=== PATIENT | male | born 1965 | race Caucasian/White ===

== ENCOUNTER 2020-09-24 08:20 | Outpatient (REF) | payer OTHER, SELFPAY ==
[2020-09-24 09:42] LABS: MANUAL DIFF FLAG NO
[2020-09-24 09:45] LABS: Basophils Absolute Auto 0.1 X10*3/uL (0.0-0.2); Basophils Percent Auto 0.8 % (0-2); Eosinophils Absolute Auto 0.2 X10*3/uL (0.0-0.4); Eosinophils Percent Auto 1.9 % (0-4); Hematocrit 43.8 % (42-52); Hemoglobin 14.5 g/dl (14.0-18.0); Imm Gran Abs Auto 0.03 X10*3/uL (0.00-0.03); Imm Gran Pct Auto 0.3 % (0.0-0.4); Lymphocytes Absolute Auto 2.8 X10*3/uL (1.2-4.9); Lymphocytes Percent Auto 27.9 % (20-40); Mean Corpuscular HGB Conc 33.1 g/dl (31.0-36.0); Mean Corpuscular Hemoglobin 29.5 pg (27.0-33.0); Mean Corpuscular Volume 89.2 fL (80-98); Monocytes Absolute Auto 0.7 X10*3/uL (0.1-1.2); Monocytes Percent Auto 7.1 % (2-11); Neutrophils Absolute Auto 6.2 X10*3/uL (2.0-8.3); Platelet Count 250 X10*3/uL (160-400); Red Blood Count 4.91 X10*6/uL (4.60-5.80); Red Cell Distribution Width 12.3 % (11.0-16.0); White Blood Count 10.1 X10*3/uL (4.8-10.8)
[2020-09-24 10:22] LABS: Creatinine Urine 95.65 mg/dL; Microalbumin Urine < 5.0 mg/L
[2020-09-24 10:25] LABS: Alanine Aminotransferase 22 U/L (0-40); Albumin Level 4.4 g/dL (3.5-5.0); Alkaline Phosphatase 54 U/L (39-117); Anion Gap 12 (12-20); Aspartate Amino Transferase 16 U/L (5-37); Bilirubin Total 0.3 mg/dL (0.0-1.0); Blood Urea Nitrogen 13 mg/dL (9-16); Calcium 9.2 mg/dL (8.4-10.2); Carbon Dioxide 30 mmol/L (22-29); Chloride 99 mmol/L (96-108); Cholesterol 142 mg/dL; Estimated Glomerular Filt Rate > 60; Glucose Fasting 68 mg/dL (60-99); HDL Cholesterol 35 mg/dL; LDL Cholesterol Calculated 79 mg/dl; Potassium 5.3 mmol/l (3.3-5.1); Sodium 136 mmol/L (135-145); Total Protein 6.9 g/dL (6.5-8.0); Triglycerides 142 mg/dL
[2020-09-24 10:26] LABS: Estimated Average Glucose 148 mg/dL; Hemoglobin A1c % 6.8 %
[2020-09-24 10:48] LABS: T4 Thyroxine 7.6 ug/dL (4.5-12.0); Thyroid Stimulating Hormone 1.09 uIU/mL (0.32-4.0)
[2020-09-24 12:01] LABS: Folate 11.4 ng/mL (> or = 4.0); Vitamin B12 626 pg/mL (200-900)
== END 2020-09-24 08:21 | disposition home or self-care (01) ==
LOC: HO.LAB 08:20
PROVIDERS: PCP Internal Medicine; Visit Provider Internal Medicine
DX: E10.9 Type 1 diabetes mellitus without complications (principal); I10 Essential (primary) hypertension; E78.00 Pure hypercholesterolemia, unspecified; F41.9 Anxiety disorder, unspecified; Z72.0 Tobacco use; Z98.890 Other specified postprocedural states
CPT/HCPCS: 36415; 80053; 80061; 82043; 82607; 82746; 83036; 84436; 84443; 85025

== ENCOUNTER 2021-07-08 06:47 | Outpatient (REF) | payer OTHER, SELFPAY ==
[2021-07-08 07:16] LABS: MANUAL DIFF FLAG NO
[2021-07-08 07:25] LABS: Basophils Absolute Auto 0.1 X10*3/uL (0.0-0.2); Basophils Percent Auto 0.7 % (0-2); Eosinophils Absolute Auto 0.2 X10*3/uL (0.0-0.4); Eosinophils Percent Auto 2.1 % (0-4); Hematocrit 40.7 % (42-52); Hemoglobin 13.8 g/dl (14.0-18.0); Imm Gran Abs Auto 0.02 X10*3/uL (0.00-0.03); Imm Gran Pct Auto 0.2 % (0.0-0.4); Lymphocytes Absolute Auto 2.9 X10*3/uL (1.2-4.9); Lymphocytes Percent Auto 31.6 % (20-40); Mean Corpuscular HGB Conc 33.9 g/dl (31.0-36.0); Mean Corpuscular Hemoglobin 29.8 pg (27.0-33.0); Mean Corpuscular Volume 87.9 fL (80-98); Mean Platelet Volume 11.2 fL (9.4-12.4); Monocytes Absolute Auto 0.8 X10*3/uL (0.1-1.2); Monocytes Percent Auto 8.8 % (2-11); Neutrophils Absolute Auto 5.1 X10*3/uL (2.0-8.3); Neutrophils Percent Auto 56.6 % (45-73); Platelet Count 212 X10*3/uL (160-400); Red Blood Count 4.63 X10*6/uL (4.60-5.80); Red Cell Distribution Width 12.9 % (11.0-16.0)
[2021-07-08 07:37] LABS: Estimated Average Glucose 169 mg/dL; Hemoglobin A1c % 7.5 %
[2021-07-08 07:53] LABS: Alanine Aminotransferase 22 U/L (0-40); Albumin Level 4.2 g/dL (3.5-5.0); Alkaline Phosphatase 50 U/L (39-117); Anion Gap 11 (12-20); Aspartate Amino Transferase 15 U/L (5-37); Bilirubin Total 0.2 mg/dL (0.0-1.0); Blood Urea Nitrogen 12 mg/dL (9-16); Carbon Dioxide 28 mmol/L (22-29); Chloride 103 mmol/L (96-108); Cholesterol 114 mg/dL; Estimated Glomerular Filt Rate > 60; Glucose Random 132 mg/dL (60-115); HDL Cholesterol 30 mg/dL; LDL Cholesterol Calculated 61 mg/dl; Potassium 4.9 mmol/L (3.3-5.1); Sodium 137 mmol/L (135-145); Total Protein 6.4 g/dL (6.5-8.0); Triglycerides 115 mg/dL
[2021-07-08 08:06] LABS: Free T4 (Free Thyroxine) 1.04 ng/dL (0.71-1.85); Thyroid Stimulating Hormone 1.47 uIU/mL (0.32-4.0)
[2021-07-08 08:27] LABS: Folate 11.1 ng/mL (> or = 4.0); Vitamin B12 612 pg/mL (200-900)
[2021-07-08 09:53] LABS: Creatinine Urine 93.91 mg/dL; Microalbum/Creatinine Ratio Ur 5.3 ug/mg cr
== END 2021-07-08 06:48 | disposition home or self-care (01) ==
LOC: HO.LAB 06:47
PROVIDERS: PCP Internal Medicine; Visit Provider Internal Medicine
DX: E78.00 Pure hypercholesterolemia, unspecified (principal); E11.65 Type 2 diabetes mellitus with hyperglycemia; I10 Essential (primary) hypertension
CPT/HCPCS: 36415; 80053; 80061; 82043; 82607; 82746; 83036; 84439; 84443; 85025

== ENCOUNTER 2022-01-07 07:29 | Outpatient (REF) | payer OTHER, SELFPAY ==
--- NOTE | ~2022-01-07 | US_ITS ---
EXAMINATION: US ABDOMEN COMPLETE CLINICAL INFORMATION: Abnormal LFTs. COMPARISON: Ultrasound abdomen complete 09/29/2018. TECHNIQUE: Real-time imaging of the abdominal viscera. FINDINGS: PANCREAS: Normal. ABDOMINAL AORTA: The proximal, mid, and distal segments are normal in caliber. INFERIOR VENA CAVA: Visualized portions are normal. LIVER: The liver is normal in size. The liver contour is normal. There is mild increase in liver echogenicity. No focal hepatic lesion. There is no intrahepatic biliary duct dilatation seen. GALLBLADDER: Normal. The gallbladder is physiologically distended without evidence of stones, sludge, polyps, wall thickening or pericholecystic fluid. COMMON BILE DUCT: Normal in caliber measuring 0.4 cm in diameter. RIGHT KIDNEY: Normal. No hydronephrosis. No renal calculi or focal parenchymal lesions. The kidney measures 11.6 cm in maximum dimension. LEFT KIDNEY: Normal. No hydronephrosis. No renal calculi or focal parenchymal lesions. The kidney measures 10.9 cm in maximum dimension. SPLEEN: Normal. The spleen measures 10.5 cm in maximum dimension. FREE FLUID: None. US/US abdomen complete IMPRESSION: Mild hepatic steatosis. No focal lesion seen. The rest of the abdominal ultrasound is unremarkable.
== END 2022-01-07 07:30 | disposition home or self-care (01) ==
LOC: HO.US 07:29
PROVIDERS: PCP Internal Medicine; Visit Provider Internal Medicine
DX: R30.0 Dysuria (principal); R79.89 Other specified abnormal findings of blood chemistry
CPT/HCPCS: 76700

== ENCOUNTER 2022-07-04 13:13 | Outpatient (REF) | payer OTHER, SELFPAY ==
--- NOTE | ~2022-07-04 | US_ITS ---
EXAMINATION: US RETROPERITONEAL LIMITED (RENAL ONLY) CLINICAL INFORMATION: Low back pain, unspecified. COMPARISON: Ultrasound abdomen complete 01/07/2022 and 09/29/2018. TECHNIQUE: Real-time imaging of the kidneys. FINDINGS: RIGHT KIDNEY: 10.9 x 5.3 x 5.3 cm (SAG x AP x TRV). The kidney is normal in size, contour, and echogenicity. Renal cortical thickness is normal. There is a small 2 mm echogenic focus with twinkle artifact in the upper pole questionable for a small stone. No focal parenchymal lesions. No hydronephrosis. LEFT KIDNEY: 10.9 x 5.9 x 5.0 cm (SAG x AP x TRV). The kidney is normal in size, contour, and echogenicity. Renal cortical thickness is normal. No calculi or focal parenchymal lesions. No hydronephrosis. US/US renal BI IMPRESSION: Question small right renal stone. Normal left kidney.
[2022-07-04 13:54] LABS: MANUAL DIFF FLAG NO
[2022-07-04 14:03] LABS: Basophils Absolute Auto 0.1 X10*3/uL (0.0-0.2); Basophils Percent Auto 0.7 % (0-2); Eosinophils Absolute Auto 0.1 X10*3/uL (0.0-0.4); Eosinophils Percent Auto 1.4 % (0-4); Hematocrit 39.9 % (42.0-52.0); Hemoglobin 13.6 g/dl (14.0-18.0); Imm Gran Abs Auto 0.03 X10*3/uL (0.00-0.03); Imm Gran Pct Auto 0.4 % (0.0-0.4); Lymphocytes Percent Auto 24.9 % (20-40); Mean Corpuscular HGB Conc 34.1 g/dl (31.0-36.0); Mean Corpuscular Hemoglobin 29.1 pg (27.0-33.0); Mean Corpuscular Volume 85.4 fL (80.0-98.0); Mean Platelet Volume 11.1 fL (9.4-12.4); Monocytes Absolute Auto 0.7 X10*3/uL (0.1-1.2); Monocytes Percent Auto 8.1 % (2-11); Neutrophils Absolute Auto 5.2 x10*3/uL (2.0-8.3); Neutrophils Percent Auto 64.5 % (45-73); Platelet Count 234 X10*3/uL (160-400); Red Blood Count 4.67 X10*6/uL (4.60-5.80); Red Cell Distribution Width 13.4 % (11.0-16.0); White Blood Count 8.1 X10*3/uL (4.8-10.8)
[2022-07-04 14:22] LABS: Creatinine Urine 26.05 mg/dL
[2022-07-04 14:25] LABS: Creatinine Urine 26.41 mg/dL; Microalbumin Urine < 5.0 mg/L
[2022-07-04 14:28] LABS: Alanine Aminotransferase 22 U/L (0-40); Albumin Level 4.4 g/dL (3.5-5.0); Alkaline Phosphatase 54 U/L (39-117); Anion Gap 15 (12-20); Aspartate Amino Transferase 17 U/L (5-37); Bilirubin Total 0.3 mg/dL (0.0-1.0); Blood Urea Nitrogen 8 mg/dL (9-16); Calcium 9.6 mg/dL (8.4-10.2); Carbon Dioxide 28 mmol/L (22-29); Chloride 98 mmol/L (96-108); Cholesterol 121 mg/dL; Estimated Glomerular Filt Rate > 60; Glucose Random 211 mg/dL (60-115); HDL Cholesterol 38 mg/dL; Iron 59 mcg/dL (45-160); LDL Cholesterol Calculated 62 mg/dl; Percent Iron Saturation 15 % (15-50); Potassium 4.9 mmol/L (3.3-5.1); Sodium 136 mmol/L (135-145); Total Iron Binding Capacity 395 mcg/dL (228-428); Total Protein 6.8 g/dL (6.5-8.0); Triglycerides 106 mg/dL; Unsaturated Iron Binding 336 ug/dL
[2022-07-04 14:50] LABS: Ferritin 45 ng/mL (20-250); Free T4 (Free Thyroxine) 1.02 ng/dL (0.71-1.85); Thyroid Stimulating Hormone 1.07 uIU/mL (0.32-4.0)
[2022-07-04 15:01] LABS: Folate 12.2 ng/mL (> or = 4.0); Vitamin B12 554 pg/mL (200-900)
== END 2022-07-04 13:14 | disposition home or self-care (01) ==
LOC: HO.HMGCX 13:13
PROVIDERS: PCP Internal Medicine; Visit Provider Internal Medicine
DX: Z12.5 Encounter for screening for malignant neoplasm of prostate (principal); M54.50 Low back pain, unspecified; E78.00 Pure hypercholesterolemia, unspecified; E11.65 Type 2 diabetes mellitus with hyperglycemia; D64.9 Anemia, unspecified
CPT/HCPCS: 36415; 76775; 80053; 80061; 82043; 82607; 82728; 82746; 83540; 84153; 84439; 84443; 85025

== ENCOUNTER 2022-10-10 10:54 | Outpatient (REF) | payer OTHER, SELFPAY | END 2022-10-10 10:55 | disposition home or self-care (01) | LOC: HO.MRI 10:54 | PROVIDERS: Visit Provider Internal Medicine | DX: Z13.89 Encounter for screening for other disorder (principal) ==

== ENCOUNTER 2022-12-02 12:26 | Outpatient (REF) | payer OTHER, SELFPAY ==
[2022-12-05 22:14] LABS: Glutamic acid decarboxylase Ab <5 IU/mL (<5)
== END 2022-12-02 12:27 | disposition home or self-care (01) ==
LOC: HO.LAB 12:26
PROVIDERS: PCP Internal Medicine; Visit Provider Internal Medicine Endocrinology, Diabetes & Metabolism
DX: E10.65 Type 1 diabetes mellitus with hyperglycemia (principal); E78.5 Hyperlipidemia, unspecified; Z79.899 Other long term (current) drug therapy
CPT/HCPCS: 36415; 82947; 86341

== ENCOUNTER 2023-01-21 14:48 | Outpatient (REF) | payer OTHER, SELFPAY ==
--- NOTE | ~2023-01-21 | US_ITS ---
EXAMINATION: US SCROTUM CLINICAL INFORMATION: Scrotal pain. COMPARISON: None. TECHNIQUE: A sonogram of the scrotum was performed assessing cutler-scale appearance and color Doppler flow. Spectral Doppler analysis of the arterial and venous flow were performed in the testes bilaterally. FINDINGS: RIGHT: Right testicle measures 3.9 x 2.0 x 2.7 cm, volume 11.0 mL. No focal testicular parenchymal lesions are visualized. An appendix testis is noted. Spectral Doppler analysis of the arterial and venous flow is normal in the right testis. Right epididymal head is normal in size. No right varicocele is seen. A tiny right hydrocele is present. Right epididymal Doppler flow is normal. LEFT: Left testicle measures 3.7 x 2.2 x 2.7 cm, volume 11.5 mL. No focal testicular parenchymal lesions are visualized. Spectral Doppler analysis of the arterial and venous flow is normal in the left testis. Left epididymal head is normal in size. No left varicocele is seen. A tiny left hydrocele is present. Left epididymal Doppler flow is normal. US/US scrotum IMPRESSION: Essentially negative exam. Tiny bilateral hydroceles are present.
== END 2023-01-21 14:49 | disposition home or self-care (01) ==
LOC: HO.US 14:48
PROVIDERS: Visit Provider Internal Medicine
DX: N50.82 Scrotal pain (principal)
CPT/HCPCS: 76870

== ENCOUNTER → 2023-01-28 13:55 | Outpatient (BNVA) | payer OTHER, SELFPAY | PROVIDERS: PCP Internal Medicine; Visit Provider Nurse Practitioner Family | DX: Z13.89 Encounter for screening for other disorder (principal) ==

== ENCOUNTER → 2023-03-03 11:37 | Outpatient (BNVA) | payer OTHER, SELFPAY | PROVIDERS: PCP Internal Medicine; Visit Provider Internal Medicine Endocrinology, Diabetes & Metabolism | DX: E11.65 Type 2 diabetes mellitus with hyperglycemia (principal); Z79.4 Long term (current) use of insulin | CPT/HCPCS: 82947 ==

== ENCOUNTER 2023-05-08 15:15 | Outpatient (REF) | payer OTHER, SELFPAY ==
--- NOTE | ~2023-05-08 | CT_ITS ---
EXAMINATION: CT CHEST SCREENING CLINICAL INFORMATION: Nicotine dependence. Smoker. COMPARISON: None available. TECHNIQUE: Multidetector volumetric CT imaging of the chest is performed without contrast using low dose technique. Additional 2D coronal and sagittal reformatted images and axial 3D maximum intensity projection (MIP) images are generated on the CT workstation. This CT examination was performed using dose optimization techniques as appropriate, variously including the following: *Automated exposure control *Adjustment of mA and/or kV according to patient size (this includes techniques or standardized protocols for targeted exams where dose is matched to indication/reason for exam; i.e. extremities or head) *Use of iterative reconstruction technique DLP: 52 mGy-cm FINDINGS: LUNGS: The central airways are patent. There is no dense consolidation. No pneumothorax. Fissural lymph node along the right minor fissure is seen on series 5 image 233. Separate pulmonary nodules are noted. 1. Right lower lobe 0.5 cm subpleural solid nodule on series 5 image 299. 2. Pleural-based left lower lobe 0.8 x 0.4 cm nodule on series 5 image 332. MEDIASTINUM: Normal heart size. No pericardial effusion. No mediastinal lymphadenopathy. The thyroid gland is unremarkable. CORONARY ARTERY CALCIFICATION: None visualized on this study. PLEURA: There is no pleural effusion. No pleural mass or thickening. AXILLA: No lymphadenopathy. UPPER ABDOMEN: Unremarkable OSSEOUS STRUCTURES: Partially visualized cervical fusion hardware. Mild degenerative change in the spine. CT/CT lung screening IMPRESSION: Pulmonary nodules are present up to a mean diameter of 0.6 cm. ASSESSMENT: Lung-RADS category 3: Probably Benign RECOMMENDATION: Short interval 6 month follow up low dose CT chest.
== END 2023-05-08 15:16 | disposition home or self-care (01) ==
LOC: HO.CT 15:15
PROVIDERS: PCP Internal Medicine; Visit Provider Physician Assistant Medical
DX: Z12.2 Encounter for screening for malignant neoplasm of respiratory organs (principal); F17.210 Nicotine dependence, cigarettes, uncomplicated
CPT/HCPCS: 71271; G0296

== ENCOUNTER 2023-05-26 10:53 | Outpatient (AMB) | payer OTHER, SELFPAY ==
[2023-05-26 10:56] VITALS: BP 136/72; PULSE 90; O2SAT 95; BMI 26.1
--- NOTE | 2023-05-26 10:56 | A.OFFVIS_ITS ---
Intake Vital Signs 05/26/23 10:56 Height 5 ft 11 in Weight 186 lb 15.232 oz BMI 26.1 BP 136/72 Blood Pressure Location Lt brachial Position Sitting Pulse 90 Pulse Source Pulse Oximeter Pulse Oximetry (%) 95 Oxygen Delivery Method Room Air Intake Visit Reasons: f/u Type 2 DM Intake Note: Patient present today to follow up on Type 2 Diabetes Mellitus. Last Diabetic Eye exam: December 2022 Last Podiatry Visit: May 2023 Random Glucose: 162mg/dl HgA1C: 7.3% 03/30/2023 Allergies No Known Allergies [No Known Allergies*] Allergy (Verified 05/26/23 10:56) Medication List - Last Reconciled 05/26/23 by Giacomo Dallas MD blood-glucose sensor ([employer] Roberto 3 Sensor device) DIRECTED dulaglutide (Trulicity) 0.75 mg (0.5 mL) subcut QWEEK gabapentin 300 mg PO TID 90 days glucagon 3 mg/actuation (Baqsimi) 3 mg intranasal ONCE hydrochlorothiazide 25 mg PO QAM ibuprofen 800 mg PO Q8H insulin degludec (Tresiba FlexTouch U-100 insulin) 32 units (0.32 mL) subcut DAILY latanoprost 0.005% 1 drp ophthalmic (eye) BEDTIME lisinopril 40 mg PO DAILY metformin 1,000 mg (2 x 500 mg) PO BID pen needle, diabetic (Comfort EZ Pen [place]) As directed pen needle, diabetic (BD Rowena 2nd Gen Pen Needle) As directed once a day simvastatin 40 mg PO QPM 90 days travoprost 0.004% (Travatan Z) 1 drp ophthalmic (eye) QPM HPI HPI Comments History of Present Illness Details 57 YO M with is seen in consultation for T2DM at the request of PCP. Initially diagnosed with T2DM age 35. Was initially started on treatment with metformin . He was started on Trulicity in past Current regimen: Tresiba 25 units Metformin 1000 mg BID Trulicity 0.75 mg Qwkly Roberto 3 download shows he is using the sensor 96% of the time. Average glucose is 135 with G mi of 6.5% and variability 22.3%. 91% in target range with 9% hyperglycemia and no hypoglycemia Reports low sugars sx once a day- 3 or 4 X/ 2 wks Treats lows with eating something . Family history of Type 2 DM in father, brothers Has eyes checked yearly, last eye exam 2 mos ago , no retinopathy. Has neuropathy, Not sees podiatry. Denies nephropathy, on YENY/ARB. Has HLD, on statin. Denies history of CAD. Had diabetes education in past . Labs: [facility] Medical History Anxiety Generalized anxiety disorder Glaucoma Hepatitis B Hepatitis C antibody positive in blood Hypercholesterolemia Hypertension Nicotine dependence, cigarettes, uncomplicated Thoracic radiculopathy due to degenerative joint disease of spine Uncontrolled type 2 diabetes mellitus with hyperglycemia (~1999) Surgical History History of cervical spinal surgery History of fusion of cervical spine Family History Father Hypertension Mother Hypertension Maternal Uncle Pancreatic cancer Sister Substance abuse Brother Substance abuse Bladder cancer Social History Household Members: Spouse Household Members Other:: Housing: House Alcohol intake: never Patient Tobacco Use Status: Current everyday Tobacco user Tobacco use type: Cigarette Cigarette Packs Per Day: 1 Years Smoked: (onset 12yo, 1ppd x 45yrs, 40+PYH) e-Cigarette/Vaping Use: Never Used Second Hand Smoke Exposure: No service: No Current occupational status: unemployed Cognitive needs: No Hearing needs: No Vision needs: No Physical Exam Vital Signs: Last Vital Signs Pulse 90 05/26/23 10:56 BP 136/72 05/26/23 10:56 Pulse Ox 95 05/26/23 10:56 Oxygen Delivery Method Room Air 05/26/23 10:56 BMI result Body Mass Index 26.1 Absence of Cushingoid features. Absence of acromegalic features. Neck exam reveals nl size thyroid about 15 gms. No thyroid nodules palpable. No carotid bruits present. Lungs CTA. Heart S1 S2, Reg R/R. No M/R/ G. Skin exam reveals absence of vitiligo or acanthosis nigricans. Abdominal exam reveals Soft NT/ND with NA BS. No organomegaly present. Extrem Other: Visual exam of foot performed. No ulcerations or open lesions. No onchomycosis, no callouses.Pulses 2 + distally. Sensation intact to monofilament exam. Vibratory sensation sensed 10 seconds in right, 10 seconds in left with 128 Hz tuning fork Assessment & Plan Assessment & Plan (1) Uncontrolled type 2 diabetes mellitus with hyperglycemia: Onset Date: ~1999 Code(s): E11.65 - Type 2 diabetes mellitus with hyperglycemia Plan: This is a 57-year-old white male with a history of type 2 diabetes being treated metformin and basal insulin with excellent improved glycemic control and no known microvascular or macrovascular complications. Plan is continue the current regimen. At this point, patient returned to the care of his primary care provider and return back to endocrinology if it is HbA1c deteriorate Coding Level of Care Code Est Pt Level 4 (68306) Diagnoses Uncontrolled type 2 diabetes mellitus with hyperglycemia E11.65
[2023-05-26 11:08] LABS: Glucose, Whole Blood 162 mg/dL (60-115)
== END 2023-05-26 16:14 | disposition home or self-care (01) ==
PROVIDERS: PCP Internal Medicine; Referring Provider Internal Medicine; Visit Provider Internal Medicine Endocrinology, Diabetes & Metabolism
DX: E11.65 Type 2 diabetes mellitus with hyperglycemia (principal)
CPT/HCPCS: 99214

== ENCOUNTER → 2023-05-26 10:53 | Outpatient (BNVA) | payer OTHER, SELFPAY | PROVIDERS: Visit Provider Internal Medicine Endocrinology, Diabetes & Metabolism | DX: E11.65 Type 2 diabetes mellitus with hyperglycemia (principal); Z79.4 Long term (current) use of insulin; Z79.84 Long term (current) use of oral hypoglycemic drugs; Z79.899 Other long term (current) drug therapy | CPT/HCPCS: 82947 ==

== ENCOUNTER 2023-07-15 09:30 | Outpatient (AMB) | payer OTHER, SELFPAY ==
--- NOTE | 2023-07-15 09:37 | MHC.PC.OV ---
Vital Signs 07/15/23 09:43 07/15/23 10:22 Height 5 ft 11 in Weight 183 lb BMI 25.5 BP 108/64 115/80 Blood Pressure Location Lt brachial Lt brachial Position Sitting Sitting Pulse 80 Pulse Source Pulse Oximeter Pulse Oximetry (%) 98 Oxygen Delivery Method Room Air Intake Visit Reasons: Diabetes mellitus, smoker hypertension, Intake Note: Patient is here to follow up on DMII, and HTN. Pt requesting Trulicity refill. Embedded Developer Required: No Accompanied by: Self / Same As Patient Allergies No Known Allergies [No Known Allergies*] Allergy (Verified 07/15/23 09:45) Medication List - Last Reconciled 07/15/23 by Verenice Park MD blood-glucose sensor ([employer] Roberto 3 Sensor device) DIRECTED dulaglutide (Trulicity) 0.75 mg (0.5 mL) subcut QWEEK gabapentin 300 mg PO TID 90 days glucagon 3 mg/actuation (Baqsimi) 3 mg intranasal ONCE hydrochlorothiazide 25 mg PO QAM ibuprofen 800 mg PO Q8H insulin degludec (Tresiba FlexTouch U-100 insulin) 32 units (0.32 mL) subcut DAILY latanoprost 0.005% 1 drp ophthalmic (eye) BEDTIME lisinopril 40 mg PO DAILY metformin 1,000 mg (2 x 500 mg) PO BID pen needle, diabetic (Comfort EZ Pen [place]) As directed pen needle, diabetic (BD Rowena 2nd Gen Pen Needle) As directed once a day simvastatin 40 mg PO QPM 90 days travoprost 0.004% (Travatan Z) 1 drp ophthalmic (eye) QPM Tobacco use date assessed: 12/31/22 Dental Screening Dental Screen Date: 07/15/23 Did you have a dental visit in the last 12 months?: No Did you have a dental problem in the last 6 months where you did not have access to dental care?: No Was dental information given to patient?: Patient has dentist HPI Diabetes mellitus, smoker hypertension, HPI Details 57-year-old male smoker with uncontrolled diabetes mellitus generalized anxiety disorder hypercholesterolemia hypertension last seen in March 2023 blood work was requested and is here for follow-up. With the smoking thoracic surgery referral for lung cancer screening. Cologuard was done in 2019. Review of the notes has seen Endocrinology and has adjusted the medication. Patient also had a CT scan done showing pulmonary nodule that needs to be followed up short-term in 6 month- PAteint has seen POdiatry and will need surgery 11/2023 toe pinky encroaching on the 4th toe - 4 weeks of recuperation [facility] Medical History Anxiety Generalized anxiety disorder Glaucoma Hepatitis B Hepatitis C antibody positive in blood Hypercholesterolemia Hypertension Nicotine dependence, cigarettes, uncomplicated Thoracic radiculopathy due to degenerative joint disease of spine Uncontrolled type 2 diabetes mellitus with hyperglycemia (~2000) Surgical History History of cervical spinal surgery History of fusion of cervical spine Family History Father Hypertension Mother Hypertension Maternal Uncle Pancreatic cancer Sister Substance abuse Brother Substance abuse Bladder cancer Social History Household Members: Spouse Household Members Other:: Housing: House Alcohol intake: never Patient Tobacco Use Status: Current everyday Tobacco user Tobacco use type: Cigarette Cigarette Packs Per Day: 1 Years Smoked: (onset 12yo, 1ppd x 45yrs, 40+PYH) Packs Per Year: 0 e-Cigarette/Vaping Use: Never Used Second Hand Smoke Exposure: No service: No Current occupational status: unemployed Cognitive needs: No Hearing needs: No Vision needs: No Questionnaire Thrive Questionnaire Date Thrive assessed: 12/31/22 TARYN-7 AMB Questionnaire TARYN-7 Date TARYN - 7 assessed: 12/31/22 Source: Developed by Drs. Giacomo Lira, Kathleen Irizarry, Luis E Workman and colleagues, with an educational christin from [employer]. Physical exam (Primary Care) Vital Signs: Last Vital Signs Pulse 80 07/15/23 09:43 BP 108/64 07/15/23 09:43 Pulse Ox 98 07/15/23 09:43 Oxygen Delivery Method Room Air 07/15/23 09:43 BMI result Body Mass Index 25.5 Tobacco/Smoking Status: Tobacco use Status Tobacco use date assessed 12/31/22 07/15/23 09:45 Patient Tobacco Use Status Current everyday Tobacco 07/15/23 09:45 Tobacco use type Cigarette 07/15/23 09:45 e-Cigarette/Vaping Use Never Used 07/15/23 09:45 Thrive Assessment: Date of Thrive Assessment Date Thrive assessed 12/31/22 07/15/23 09:45 Const General: alert; No acute distress Eyes Conjunctivae: conjunctivae normal Resp Auscultation: clear to auscultation bilaterally Cardio Rate: regular rate Rhythm: regular rhythm GI Inspection: Yes normal to inspection Extrem General: Yes normal to inspection and No edema Results AMB Hemoglobin A1c AMB Hemoglobin A1c 6.6 % Last Edit by ALDAIR Armstrong on 07/15/23 09:46 Results Reviewed Results Reviewed: Laboratory Last Values Hgb A1c (Clinic) 6.6 % (4.0-6.0) H 07/15/23 09:34 Assessment and Plan Assessment & Plan (1) Colon cancer screening: Comment: (reports normal cologuard 3 years ago, he is concerned with doing the clear liquid diet prep for colonoscopy as he is diabetic. He will consider colonoscopt in Fall) Code(s): Z12.11 - Encounter for screening for malignant neoplasm of colon Plan: Patient was advised to get the Cologuard testing done (2) Type 2 diabetes mellitus with hyperglycemia: Comment: [place] eye exam Code(s): E11.65 - Type 2 diabetes mellitus with hyperglycemia Plan: Decrease the amount of carbohydrate intake, pasta, bread, rice and potatoes are all sugar and that is aside from all the sweet stuff, remember that fruits are good but they are Sweet also. Hemoglobin A1c goal of less than 6.5 present hemoglobin A1c 6.6 (3) Pulmonary nodule: Comment: 05/08/23 initial LDCT = Pleural-based LLL 0.8 x 0.4 cm nodule Code(s): R91.1 - Solitary pulmonary nodule Plan: Six-month follow-up from April 2023 (4) Hypertension: Code(s): I10 - Essential (primary) hypertension Qualifiers: Hypertension type: essential hypertension Qualified Code(s): I10 - Essential (primary) hypertension Plan: Continue with blood pressure medication. Decrease salt intake and exercise continue with lisinopril 40 mg once a day and hydrochlorothiazide 25 mg once a day (5) Hypercholesterolemia: Code(s): E78.00 - Pure hypercholesterolemia, unspecified Plan: Avoid fried foods, chicken skin, eggs, butter margarine, pastries and meat. Be it pork or beef they have a lot of cholesterol LDL goal of less than 100 and the last blood work was in 2021 (6) Nicotine dependence, cigarettes, uncomplicated: Comment: (current smoker - onset 12yo, 1ppd x 45yrs, 40+PYH) Code(s): F17.210 - Nicotine dependence, cigarettes, uncomplicated Plan: Patient is strongly advised to stop smoking Orders: Orders AMB Hemoglobin A1c Today E11.65 - Type 2 diabetes mellitus with hyperglycemia Coding Level of Care Code Est Pt Level 4 (87621) Diagnoses Colon cancer screening Z12.11 Type 2 diabetes mellitus with hyperglycemia E11.65 Pulmonary nodule R91.1 Hypertension I10 Hypertension type: essential hypertension Hypercholesterolemia E78.00 Nicotine dependence, cigarettes, uncomplicated F17.210
[2023-07-15 09:43] VITALS: BP 108/64; PULSE 80; O2SAT 98; BMI 25.5
[2023-07-15 10:22] VITALS: BP 115/80
== END 2023-07-15 11:20 | disposition home or self-care (01) ==
PROVIDERS: PCP Internal Medicine; Visit Provider Internal Medicine
DX: E11.65 Type 2 diabetes mellitus with hyperglycemia (principal); I10 Essential (primary) hypertension; F17.210 Nicotine dependence, cigarettes, uncomplicated; Z12.11 Encounter for screening for malignant neoplasm of colon; R91.1 Solitary pulmonary nodule; E78.00 Pure hypercholesterolemia, unspecified
CPT/HCPCS: 83036; 99214

== ENCOUNTER 2023-11-02 07:55 | Outpatient (REF) | payer OTHER, SELFPAY ==
[2023-11-02 08:12] LABS: MANUAL DIFF FLAG NO
[2023-11-02 09:35] LABS: Basophils Absolute Auto 0.1 X10*3/uL (0.0-0.2); Basophils Percent Auto 0.6 % (0-2); Eosinophils Absolute Auto 0.2 X10*3/uL (0.0-0.4); Eosinophils Percent Auto 1.8 % (0-4); Hematocrit 41.2 % (42.0-52.0); Hemoglobin 13.7 g/dl (14.0-18.0); Imm Gran Abs Auto 0.03 X10*3/uL (0.00-0.03); Imm Gran Pct Auto 0.3 % (0.0-0.4); Immature Retic Fraction 8.9 % (2.3-13.4); Lymphocytes Absolute Auto 3.1 X10*3/uL (1.2-4.9); Lymphocytes Percent Auto 32.1 % (20-40); Mean Corpuscular HGB Conc 33.3 g/dl (31.0-36.0); Mean Corpuscular Hemoglobin 29.3 pg (27.0-33.0); Mean Platelet Volume 11.1 fL (9.4-12.4); Monocytes Absolute Auto 0.7 X10*3/uL (0.1-1.2); Neutrophils Absolute Auto 5.5 x10*3/uL (2.0-8.3); Neutrophils Percent Auto 58.2 % (45-73); Platelet Count 214 X10*3/uL (160-400); Red Blood Count 4.68 X10*6/uL (4.60-5.80); Red Cell Distribution Width 12.4 % (11.0-16.0); Retic HGB Equivalent 34.6 pg (30.0-35.0); Reticulocytes Absolute 0.048 X10*6/uL (0.026-0.095); White Blood Count 9.5 X10*3/uL (4.8-10.8)
[2023-11-02 10:23] LABS: Alanine Aminotransferase 19 U/L (0-40); Albumin Level 4.4 g/dL (3.5-5.0); Alkaline Phosphatase 47 U/L (39-117); Anion Gap 14 (12-20); Aspartate Amino Transferase 13 U/L (5-37); Bilirubin Total 0.3 mg/dL (0.0-1.0); Blood Urea Nitrogen 13 mg/dL (9-16); Calcium 9.5 mg/dL (8.4-10.2); Carbon Dioxide 28 mmol/L (22-29); Chloride 101 mmol/L (96-108); Cholesterol 119 mg/dL (<200); Estimated Glomerular Filt Rate > 60; Glucose Random 127 mg/dL (60-115); HDL Cholesterol 36 mg/dL (>40); Iron 70 mcg/dL (45-160); LDL Cholesterol Calculated 58 mg/dL (<100); Percent Iron Saturation 22 % (15-50); Potassium 4.5 mmol/L (3.3-5.1); Sodium 138 mmol/L (135-145); Total Iron Binding Capacity 320 mcg/dL (228-428); Total Protein 7.2 g/dL (6.5-8.0); Triglycerides 127 mg/dL (<150); Unsaturated Iron Binding 250 ug/dL
[2023-11-02 10:29] LABS: Ferritin 58 ng/mL (20-250); Free T4 (Free Thyroxine) 0.94 ng/dL (0.71-1.85); Thyroid Stimulating Hormone 1.51 uIU/mL (0.32-4.0)
[2023-11-02 10:34] LABS: Creatinine Urine 202.47 mg/dL; Microalbum/Creatinine Ratio Ur 5.9 ug/mg cr (<30)
[2023-11-02 10:36] LABS: Folate 10.3 ng/mL (> or = 4.0); Prostate Specific Antigen Scr 1.72 ng/mL (<0.05-4.0); Vitamin B12 709 pg/mL (200-900)
== END 2023-11-02 07:56 | disposition home or self-care (01) ==
LOC: HO.LAB 07:55
PROVIDERS: PCP Internal Medicine; Visit Provider Internal Medicine
DX: Z12.5 Encounter for screening for malignant neoplasm of prostate (principal); E11.65 Type 2 diabetes mellitus with hyperglycemia; E78.00 Pure hypercholesterolemia, unspecified; D64.9 Anemia, unspecified
CPT/HCPCS: 36415; 80053; 80061; 82043; 82570; 82607; 82728; 82746; 83540; 84153; 84439; 84443; 85025; 85045

== ENCOUNTER 2023-11-05 13:25 | Outpatient (AMB) | payer OTHER, SELFPAY ==
[2023-11-05 13:26] VITALS: BP 146/70; PULSE 82; O2SAT 99; BMI 26.2
--- NOTE | 2023-11-05 13:26 | A.OFFPC_ITS ---
Vital Signs 11/05/23 13:26 Height 5 ft 11 in Weight 188 lb 0.6 oz BMI 26.2 BP 146/70 H Blood Pressure Location Lt brachial Position Sitting Pulse 82 Pulse Source Pulse Oximeter Pulse Oximetry (%) 99 Oxygen Delivery Method Room Air Intake Visit Reasons: 11/25/23 Hammer toe Right Fourth&Fifth Toe Intake Note: Patient is here for a Pre-op for Hammer Toe Right Fourth&Fifth toe scheduled with on 11/25/2023 Eligibility Specialist Required: No Allergies No Known Allergies [No Known Allergies*] Allergy (Verified 11/05/23 13:26) Medication List - Last Reconciled 11/05/23 by Verenice Park MD blood-glucose sensor (FreeStyle Roberto 3 Sensor device) DIRECTED dulaglutide 1.5 mg (0.5 mL) subcut QWEEK 30 days gabapentin 300 mg PO TID 90 days glucagon 3 mg/actuation (Baqsimi) 3 mg intranasal ONCE hydrochlorothiazide 25 mg PO QAM ibuprofen 800 mg PO Q8H insulin degludec (Tresiba FlexTouch U-100 insulin) 32 units (0.32 mL) subcut DAILY latanoprost 0.005% 1 drp ophthalmic (eye) BEDTIME lisinopril 30 mg PO DAILY 30 days metformin 1,000 mg (2 x 500 mg) PO BID pen needle, diabetic (Comfort EZ Pen [place]) As directed pen needle, diabetic (BD Rowena 2nd Gen Pen Needle) As directed once a day simvastatin 40 mg PO QPM 90 days travoprost 0.004% (Travatan Z) 1 drp ophthalmic (eye) QPM Tobacco use date assessed: 11/05/23 Dental Screening Dental Screen Date: 11/05/23 Did you have a dental visit in the last 12 months?: No Did you have a dental problem in the last 6 months where you did not have access to dental care?: No HPI 11/25/23 Hammer toe Right Fourth&Fifth Toe HPI Details 58-year-old overweight male smoker with diabetes mellitus hypertension hypercholesterol coming in for follow-up. Last seen in 07/15/2023. Cologuard negative November 2019 patient did get COVID shot and a flu shot. [facility] Medical History Anxiety Generalized anxiety disorder Glaucoma Hepatitis B Hepatitis C antibody positive in blood Hypercholesterolemia Hypertension Nicotine dependence, cigarettes, uncomplicated Thoracic radiculopathy due to degenerative joint disease of spine Uncontrolled type 2 diabetes mellitus with hyperglycemia (~2000) Surgical History History of cervical spinal surgery History of fusion of cervical spine Family History Father Hypertension Mother Hypertension Maternal Uncle Pancreatic cancer Sister Substance abuse Brother Substance abuse Bladder cancer Social History Household Members: Spouse Household Members Other:: Housing: House Alcohol intake: never Patient Tobacco Use Status: Current everyday Tobacco user Tobacco use type: Cigarette Cigarette Packs Per Day: 1 Years Smoked: (onset 12yo, 1ppd x 45yrs, 40+PYH) e-Cigarette/Vaping Use: Never Used Second Hand Smoke Exposure: No service: No Current occupational status: unemployed Cognitive needs: No Hearing needs: No Vision needs: No Questionnaire Thrive Questionnaire Date Thrive assessed: 12/31/22 AUDIT C Alcohol Use Questionnaire (AUDIT-C) 1. How often do you have a drink containing alcohol?: Never 3. How often do you have six or more drinks on one occasion?: Never Total Score: 0 TARYN-7 AMB Questionnaire TARYN-7 Date TARYN - 7 assessed: 12/31/22 Source: Developed by Drs. Giacomo Lira, Kathleen Irizarry, Luis E Workman and colleagues, with an educational christin from [employer]. Physical exam (Primary Care) Vital Signs: Last Vital Signs Pulse 82 11/05/23 13:26 BP 146/70 H 11/05/23 13:26 Pulse Ox 99 11/05/23 13:26 Oxygen Delivery Method Room Air 11/05/23 13:26 BMI result Body Mass Index 26.2 Tobacco/Smoking Status: Tobacco use Status Tobacco use date assessed 11/05/23 11/05/23 13:27 Patient Tobacco Use Status Current everyday Tobacco 11/05/23 13:27 Tobacco use type Cigarette 11/05/23 13:27 e-Cigarette/Vaping Use Never Used 11/05/23 13:27 Thrive Assessment: Date of Thrive Assessment Date Thrive assessed 12/31/22 11/05/23 13:27 Const General: alert; No acute distress Eyes Conjunctivae: conjunctivae normal Resp Auscultation: clear to auscultation bilaterally Cardio Rate: regular rate Rhythm: regular rhythm GI Inspection: Yes normal to inspection Extrem General: Yes normal to inspection and No edema Results AMB Hemoglobin A1c AMB Hemoglobin A1c 7.6 % Last Edit by NICOLE Pradhan on 11/05/23 13:40 Assessment and Plan Assessment & Plan (1) Type 2 diabetes mellitus with hyperglycemia: Comment: [place] [facility] exam Code(s): E11.65 - Type 2 diabetes mellitus with hyperglycemia Plan: Decrease the amount of carbohydrate intake, pasta, bread, rice and potatoes are all sugar and that is aside from all the sweet stuff, remember that fruits are good but they are Sweet also. Hemoglobin A1c goal of less than 6.5. Patient on Tresiba 32 units once a day Trulicity metformin. Advised to increase dose of Trulicity (2) Nicotine dependence, cigarettes, uncomplicated: Comment: (current smoker - onset 12yo, 1ppd x 45yrs, 40+PYH) Code(s): F17.210 - Nicotine dependence, cigarettes, uncomplicated Plan: Patient is strongly advised to stop smoking! Patient is not ready to stop (3) Colon cancer screening: Comment: (reports normal cologuard 3 years ago, he is concerned with doing the clear liquid diet prep for colonoscopy as he is diabetic. He will consider colonoscopt in Fall) Code(s): Z12.11 - Encounter for screening for malignant neoplasm of colon Plan: Discussed about Cologuard every 3 years, Cologuard sent (4) Hypertension: Code(s): I10 - Essential (primary) hypertension Qualifiers: Hypertension type: essential hypertension Qualified Code(s): I10 - Essential (primary) hypertension Plan: Continue with blood pressure medication. Decrease salt intake and exercise patient takes lisinopril 40 mg once a day hydrochlorothiazide 25 mg once a day. Patient has been feeling dizzy so has decreased lisinopril to 20 mg once a day. But the problem of the blood pressure still high will increase to 30 mg once a day (5) Hypercholesterolemia: Code(s): E78.00 - Pure hypercholesterolemia, unspecified Plan: Avoid fried foods, chicken skin, eggs, butter margarine, pastries and meat. Be it pork or beef they have a lot of cholesterol LDL goal of less than 100 and triglyceride of less than 150 patient takes simvastatin 40 mg once a day (6) Anemia: Code(s): D64.9 - Anemia, unspecified Plan: Chronic and stable Orders: Orders AMB Hemoglobin A1c Today E11.65 - Type 2 diabetes mellitus with hyperglycemia Referrals Cologuard Test Z12.11 - Encounter for screening for malignant neoplasm of colon, Z12.12 - Encounter for screening for malignant neoplasm of rectum Medications: Changed From dulaglutide (Trulicity) 0.75 mg (0.5 mL) subcut QWEEK 2 mL 5RF E11.65 - Type 2 diabetes mellitus with hyperglycemia To dulaglutide 1.5 mg (0.5 mL) subcut QWEEK 30 days 2.5 mL 5RF E11.65 - Type 2 diabetes mellitus with hyperglycemia From lisinopril 40 mg PO DAILY 90 tabs 3RF E10.9 - Type 1 diabetes mellitus without complications To lisinopril 30 mg PO DAILY 30 days 30 tabs 3RF E10.9 - Type 1 diabetes mellitus without complications Coding Level of Care Code Est Pt Level 4 (48274) Diagnoses Type 2 diabetes mellitus with hyperglycemia E11.65 Nicotine dependence, cigarettes, uncomplicated F17.210 Colon cancer screening Z12.11 Essential hypertension I10 Hypertension type: essential hypertension Hypercholesterolemia E78.00 Anemia D64.9
== END 2023-11-05 16:10 | disposition home or self-care (01) ==
PROVIDERS: PCP Internal Medicine; Visit Provider Internal Medicine
DX: E11.65 Type 2 diabetes mellitus with hyperglycemia (principal); F17.210 Nicotine dependence, cigarettes, uncomplicated; Z12.11 Encounter for screening for malignant neoplasm of colon; I10 Essential (primary) hypertension; E78.00 Pure hypercholesterolemia, unspecified; D64.9 Anemia, unspecified
CPT/HCPCS: 83036; 99214

== ENCOUNTER → 2023-11-23 11:04 | Outpatient (REF) | payer OTHER, SELFPAY | LOC: HO.CARD 11:04 | PROVIDERS: PCP Internal Medicine; Visit Provider Internal Medicine | DX: Z01.818 Encounter for other preprocedural examination (principal) | CPT/HCPCS: 93005 ==

== ENCOUNTER → 2023-11-23 11:08 | Outpatient (BNV) | payer OTHER, SELFPAY | PROVIDERS: PCP Internal Medicine; Visit Provider Internal Medicine Cardiovascular Disease | DX: Z01.810 Encounter for preprocedural cardiovascular examination (principal) | CPT/HCPCS: 93010 ==

== ENCOUNTER 2023-12-22 10:20 | Outpatient (REF) | payer OTHER, SELFPAY ==
--- NOTE | ~2023-12-22 | CT_ITS ---
EXAMINATION: CT CHEST LOW-DOSE SCREENING WITHOUT CONTRAST HISTORY: Asymptomatic patient meeting criteria for lung screening. PATIENT PACK-YEAR HISTORY: 32 Current Smoker: Yes If former smoker, years since quitting: COMPARISON: 05/08/2023 TECHNIQUE: Multidetector volumetric non-contrast CT imaging of the chest was performed using low dose screening CT technique. Axial thin section 0.625 mm reformations in soft tissue and lung windows were obtained. Sagittal and coronal reformations were obtained. Axial MIP images were also created and reviewed. RECONSTRUCTED WIDTH: 1.25 mm x 1.25 mm TOTAL EXAM DLP: 94 mGy-cm CTDIvol: 2.18 L mGy FINDINGS: LUNGS: Mild centrilobular emphysema. Stable 8 mm subpleural nodule left lower lobe on image 361 of series 6. Stable 5 mm subpleural nodule right lower lobe on image 341 series 6. Few additional pulmonary nodules measure 4 mm and less. No enlarging pulmonary nodules. No focal consolidation. Central airways are patent. PLEURA: No pleural effusion. LYMPH NODES: No bulky mediastinal, hilar or axillary lymphadenopathy. MEDIASTINUM: Great vessels are of normal caliber. Heart size is normal. No pericardial effusion. CORONARY ARTERY CALCIFICATIONS: Mild. CHEST WALL/BREASTS: No acute abnormality. UPPER ABDOMEN: This study was performed without contrast and with lower than standard dose, reducing the sensitivity for detection of small lesions in the upper abdomen. Hepatic steatosis. OSSEOUS STRUCTURES: No destructive bone lesions. CT/CT lung screen follow up IMPRESSION: No suspicious pulmonary nodule. LUNG-RADS CATEGORY ASSESSMENT: 2. Benign appearance or behavior. Nodules with a very low likelihood of becoming a clinically active cancer due to size or lack of growth. Continue annual screening with low-dose CT in 12 months. Probability of malignancy less than 1%. INCIDENTAL FINDINGS (S CATEGORY): Finding: Hepatic steatosis. Significance category: Clinically significant. RECOMMENDATION: Low dose lung CT. overall in 1 year. Visual estimate of coronary calcified plaque burden: Mild. However, this exam cannot replace a dedicated cardiac CT calcium score for accurate assessment. LUNG-RADS CATEGORY: 2 -- BENIGN
== END 2023-12-22 10:21 | disposition home or self-care (01) ==
LOC: HO.CT 10:20
PROVIDERS: PCP Internal Medicine; Visit Provider Physician Assistant Medical
DX: R91.1 Solitary pulmonary nodule (principal); F17.210 Nicotine dependence, cigarettes, uncomplicated
CPT/HCPCS: 71250

== ENCOUNTER 2024-02-11 11:34 | Outpatient (AMB) | payer OTHER, SELFPAY ==
--- NOTE | 2024-02-11 11:45 | MHC.PC.OV ---
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 Installer Inspector Final Required: No Allergies No Known Allergies [No Known Allergies*] Allergy (Verified 02/11/24 11:50) Medication List - Last Reconciled 02/11/24 by Verenice Park MD blood-glucose sensor (FreeStyle Roberto 3 Sensor device) DIRECTED dulaglutide 3 mg (0.5 mL) subcut QWEEK 30 days gabapentin 300 mg PO TID 90 days glucagon 3 mg/actuation (Baqsimi) 3 mg intranasal ONCE hydrochlorothiazide 25 mg PO QAM ibuprofen 800 mg PO Q8H insulin degludec (Tresiba FlexTouch U-100 insulin) 32 units (0.32 mL) subcut DAILY latanoprost 0.005% 1 drp ophthalmic (eye) BEDTIME lisinopril 30 mg PO DAILY 30 days metformin 1,000 mg (2 x 500 mg) PO BID nicotine 1 patch transdermal DAILY nicotine 1 patch transdermal DAILY pen needle, diabetic (Comfort EZ Pen [place]) As directed pen needle, diabetic (BD Rowena 2nd Gen Pen Needle) As directed once a day simvastatin 40 mg PO QPM 90 days travoprost 0.004% (Travatan Z) 1 drp ophthalmic (eye) QPM Tobacco use date assessed: 02/11/24 Dental Screening Dental Screen Date: 02/11/24 Did you have a dental visit in the last 12 months?: No Did you have a dental problem in the last 6 months where you did not have access to dental care?: No HPI DM, HTN HPI Details 58-year-old overweight male smoker with diabetes mellitus hypertension hypercholesterolemia coming in for follow-up. Last seen in October 2023. Patient's Cologuard is due. December [address] scan done on the chest for lung cancer screening this is negative [facility] Medical History (Updated 02/11/24 @ 12:11 by Verenice Park MD) Colon cancer screening Nicotine dependence, cigarettes, uncomplicated Uncontrolled type 2 diabetes mellitus with hyperglycemia (~1999) Generalized anxiety disorder Glaucoma Thoracic radiculopathy due to degenerative joint disease of spine Anxiety Hepatitis C antibody positive in blood Hepatitis B Hypercholesterolemia Hypertension Surgical History History of cervical spinal surgery History of fusion of cervical spine Family History Father Hypertension Mother Hypertension Maternal Uncle Pancreatic cancer Sister Substance abuse Brother Substance abuse Bladder cancer Social History Household Members: Spouse Household Members Other:: Housing: House Alcohol intake: never Patient Tobacco Use Status: Current everyday Tobacco user Tobacco use type: Cigarette Cigarette Packs Per Day: 1 Years Smoked: (onset 12yo, 1ppd x 45yrs, 40+PYH) Packs Per Year: 0 e-Cigarette/Vaping Use: Never Used Second Hand Smoke Exposure: No service: No Current occupational status: unemployed Cognitive needs: No Hearing needs: No Vision needs: No Questionnaire Thrive Questionnaire Date Thrive assessed: 12/31/22 AUDIT C Alcohol Use Questionnaire (AUDIT-C) 1. How often do you have a drink containing alcohol?: Never 3. How often do you have six or more drinks on one occasion?: Never Total Score: 0 TARYN-7 AMB Questionnaire TARYN-7 Date TARYN - 7 assessed: 12/31/22 Source: Developed by Drs. Giacomo Lira, Kathleen Iriazrry, Luis E Workman and colleagues, with an educational christin from [employer]. Physical exam (Primary Care) Vital Signs: Last Vital Signs Pulse 88 02/11/24 11:50 BP 140/74 H 02/11/24 11:50 Pulse Ox 96 02/11/24 11:50 Oxygen Delivery Method Room Air 02/11/24 11:50 BMI result Body Mass Index 26.4 Tobacco/Smoking Status: Tobacco use Status Tobacco use date assessed 02/11/24 02/11/24 11:50 Patient Tobacco Use Status Current everyday Tobacco 02/11/24 11:45 Tobacco use type Cigarette 02/11/24 11:45 e-Cigarette/Vaping Use Never Used 02/11/24 11:45 Thrive Assessment: Date of Thrive Assessment Date Thrive assessed 12/31/22 02/11/24 11:45 Const General: alert; No acute distress Eyes Conjunctivae: conjunctivae normal Resp Auscultation: clear to auscultation bilaterally Cardio Rate: regular rate Rhythm: regular rhythm GI Inspection: Yes normal to inspection Extrem General: Yes normal to inspection and No edema Results AMB Hemoglobin A1c AMB Hemoglobin A1c 7.2 % Last Edit by NICOLE Pradhan on 02/11/24 12:00 Results Reviewed Results Reviewed: Laboratory Last Values Hgb A1c (Clinic) 7.2 % (4.0-6.0) H 02/11/24 10:07 Assessment and Plan Assessment & Plan (1) Type 2 diabetes mellitus with hyperglycemia: Comment: [place] [facility] exam Code(s): E11.65 - Type 2 diabetes mellitus with hyperglycemia Plan: Decrease the amount of carbohydrate intake, pasta, bread, rice and potatoes are all sugar and that is aside from all the sweet stuff, remember that fruits are good but they are Sweet also. Hemoglobin A1c goal of less than 6.5. Patient is on Trulicity Tresiba metformin (2) Pulmonary nodule: Comment: 05/08/23 initial LDCT = Pleural-based LLL 0.8 x 0.4 cm nodule, December 2023 Code(s): R91.1 - Solitary pulmonary nodule Plan: Continue to follow-up December [address] scan. Early (3) Hypertension: Code(s): I10 - Essential (primary) hypertension Qualifiers: Hypertension type: essential hypertension Qualified Code(s): I10 - Essential (primary) hypertension Plan: Continue with blood pressure medication. Decrease salt intake and exercise patient takes lisinopril 30 mg once a day hydrochlorothiazide 25 mg once a day (4) Hypercholesterolemia: Code(s): E78.00 - Pure hypercholesterolemia, unspecified Plan: Avoid fried foods, chicken skin, eggs, butter margarine, pastries and meat. Be it pork or beef they have a lot of cholesterol LDL goal of less than 100 and triglyceride of less than 150. (5) Nicotine dependence, cigarettes, uncomplicated: Comment: (current smoker - onset 12yo, 1ppd x 45yrs, 40+PYH) Code(s): F17.210 - Nicotine dependence, cigarettes, uncomplicated Plan: Patient is strongly advised to stop smoking. (6) Generalized anxiety disorder: Code(s): F41.1 - Generalized anxiety disorder Plan: Stable Orders: Orders AMB Hemoglobin A1c Today E11.65 - Type 2 diabetes mellitus with hyperglycemia Medications: New nicotine 1 patch transdermal DAILY 28 ea 0RF F17.210 - Nicotine dependence, cigarettes, uncomplicated nicotine 1 patch transdermal DAILY 28 ea 0RF F17.210 - Nicotine dependence, cigarettes, uncomplicated Changed From dulaglutide 1.5 mg (0.5 mL) subcut QWEEK 2.5 mL 5RF 30 days E11.65 - Type 2 diabetes mellitus with hyperglycemia To dulaglutide 3 mg (0.5 mL) subcut QWEEK 2.5 mL 5RF 30 days E11.65 - Type 2 diabetes mellitus with hyperglycemia Refilled lisinopril 30 mg PO DAILY 30 tabs 3RF 30 days E10.9 - Type 1 diabetes mellitus without complications lisinopril 30 mg PO DAILY 30 tabs 3RF 30 days E10.9 - Type 1 diabetes mellitus without complications dulaglutide 3 mg (0.5 mL) subcut QWEEK 2.5 mL 5RF 30 days E11.65 - Type 2 diabetes mellitus with hyperglycemia Coding Level of Care Code Est Pt Level 4 (53522) Diagnoses Type 2 diabetes mellitus with hyperglycemia Pulmonary nodule R91.1 Essential hypertension I10 Hypertension type: essential hypertension Hypercholesterolemia E78.00 Nicotine dependence, cigarettes, uncomplicated F1.210 Generalized anxiety disorder F41.1
[2024-02-11 11:50] VITALS: BP 140/74; PULSE 88; O2SAT 96; BMI 26.4
== END 2024-02-11 12:21 | disposition home or self-care (01) ==
PROVIDERS: PCP Internal Medicine; Visit Provider Internal Medicine
DX: E11.65 Type 2 diabetes mellitus with hyperglycemia (principal); R91.1 Solitary pulmonary nodule; I10 Essential (primary) hypertension; E78.00 Pure hypercholesterolemia, unspecified; F17.210 Nicotine dependence, cigarettes, uncomplicated; F41.1 Generalized anxiety disorder
CPT/HCPCS: 83036; 99214

== ENCOUNTER 2024-06-10 09:28 | Outpatient (AMB) | payer OTHER, SELFPAY ==
[2024-06-10 09:35] VITALS: BP 138/64; PULSE 88; O2SAT 97; BMI 25.8
--- NOTE | 2024-06-10 09:35 | A.OFFPC_ITS ---
Vital Signs 06/10/24 09:35 Height 5 ft 11 in Weight 185 lb BMI 25.8 BP 138/64 Blood Pressure Location Lt brachial Position Sitting Pulse 88 Pulse Source Pulse Oximeter Pulse Oximetry (%) 97 Oxygen Delivery Method Room Air Intake Visit Reasons: 3 Month F/U Cold Working Inspector Required: No Allergies No Known Allergies [No Known Allergies*] Allergy (Verified 06/10/24 09:35) Tobacco use date assessed: 02/11/24 Dental Screening Dental Screen Date: 02/11/24 HPI 3 Month F/U HPI Details 58-year-old male smoker with diabetes me llitus on insulin hypertension hypercholesterolemia and generalized anxiety disorder last seen in January 2024. Patient is up-to-date with the Cologuard test November 2023. Patient has been doing fine but complaining of nighttime watery stools since the Trulicity was changed but declined decreasing the dose. Also has been helping Lurdes cases of water and developed left trapezius pain and swelling of the right elbow. Declined any fall or trauma. Persistence prompted for consultation. As for the diabetes though last complete blood work was done in October. [facility] Medical History (Updated 06/10/24 @ 09:50 by Verenice Park MD) Preop exam for internal medicine Colon cancer screening Nicotine dependence, cigarettes, uncomplicated Uncontrolled type 2 diabetes mellitus with hyperglycemia (~1999) Generalized anxiety disorder Glaucoma Thoracic radiculopathy due to degenerative joint disease of spine Anxiety Hepatitis C antibody positive in blood Hepatitis B Hypercholesterolemia Hypertension Surgical History History of cervical spinal surgery History of fusion of cervical spine Family History Father Hypertension Mother Hypertension Maternal Uncle Pancreatic cancer Sister Substance abuse Brother Substance abuse Bladder cancer Social History Household Members: Spouse Household Members Other:: Housing: House Alcohol intake: never Patient Tobacco Use Status: Current everyday Tobacco user Tobacco use type: Cigarette Cigarette Packs Per Day: 1 Years Smoked: (onset 12yo, 1ppd x 45yrs, 40+PYH) e-Cigarette/Vaping Use: Never Used Second Hand Smoke Exposure: No service: No Current occupational status: unemployed Cognitive needs: No Hearing needs: No Vision needs: No Questionnaire Thrive Questionnaire Date Thrive assessed: 06/10/24 I am a: Patient What is your living situation today?: I have a steady place to live Within the past 12 months, did the food you bought not last and you didn't have the money to get more?: Never true Within the past 12 months, did you worry whether your food would run out before you got money to buy more?: Never true Do you have trouble paying for medicines?: No Do you have trouble getting transportation to medical appointments?: No Do you have trouble paying your heating and electricity bill?: No Do you have trouble taking care of your child, family member or friend?: No Do you have trouble with day-to-day activities such as bathing, preparing meals, shopping, managing finances, etc.?: No Are you currently unemployed and looking for a job?: No Are you interested in more education?: No Please select the resources that you would like help with: None Currently or been in a relationship where the following occur: No concerns reported THRIVE Score: 0 AUDIT C Alcohol Use Questionnaire (AUDIT-C) 1. How often do you have a drink containing alcohol?: Never 3. How often do you have six or more drinks on one occasion?: Never Total Score: 0 TARYN-7 AMB Questionnaire TARYN-7 Date TRAYN - 7 assessed: 12/31/22 Source: Developed by Drs. Giacomo Lira, Kathleen Irizarry, Luis E Workman and colleagues, with an educational christin from [employer]. Physical exam (Primary Care) Vital Signs: Last Vital Signs Pulse 88 06/10/24 09:35 BP 138/64 06/10/24 09:35 Pulse Ox 97 06/10/24 09:35 Oxygen Delivery Method Room Air 06/10/24 09:35 BMI result Body Mass Index 25.8 Tobacco/Smoking Status: Tobacco use Status Tobacco use date assessed 02/11/24 06/10/24 09:41 Patient Tobacco Use Status Current everyday Tobacco 06/10/24 09:41 Tobacco use type Cigarette 06/10/24 09:41 e-Cigarette/Vaping Use Never Used 06/10/24 09:41 Thrive Assessment: Date of Thrive Assessment Date Thrive assessed 06/10/24 06/10/24 09:41 Currently or been in a relationship where the following occur: No concerns reported Const General: alert; No acute distress Eyes Conjunctivae: conjunctivae normal Resp Auscultation: clear to auscultation bilaterally Cardio Rate: regular rate Rhythm: regular rhythm GI Inspection: Yes normal to inspection Extrem Other: Right elbow has palpable mass no erythema nontender on palpation fluid filled General: No edema Results AMB Hemoglobin A1c AMB Hemoglobin A1c 7.1 % Last Edit by NICOLE Pradhan on 06/10/24 09:51 Assessment and Plan Assessment & Plan (1) Type 2 diabetes mellitus with hyperglycemia: Comment: [place] [facility] exam Code(s): E11.65 - Type 2 diabetes mellitus with hyperglycemia Plan: Decrease the amount of carbohydrate intake, pasta, bread, rice and potatoes are all sugar and that is aside from all the sweet stuff, remember that fruits are good but they are Sweet also. Hemoglobin A1c goal of less than 6.5. Patient presently on Trulicity 3 mg once a week Tresiba 30 do so units once a day metformin a 1000 mg twice a day (2) Hypertension: Code(s): I10 - Essential (primary) hypertension Qualifiers: Hypertension type: essential hypertension Qualified Code(s): I10 - Essential (primary) hypertension Plan: Continue with blood pressure medication. Decrease salt intake and exercise on lisinopril 30 mg once a day (3) Hypercholesterolemia: Code(s): E78.00 - Pure hypercholesterolemia, unspecified Plan: Avoid fried foods, chicken skin, eggs, butter margarine, pastries and meat. Be it pork or beef they have a lot of cholesterol 10/2023 last blood work on simvastatin 40 mg once a day (4) Pulmonary nodule: Comment: 05/08/23 initial LDCT = Pleural-based LLL 0.8 x 0.4 cm nodule, December 2023 Code(s): R91.1 - Solitary pulmonary nodule Plan: December [address] scan and annual testing done (5) Nicotine dependence, cigarettes, uncomplicated: Comment: (current smoker - onset 12yo, 1ppd x 45yrs, 40+PYH) Code(s): F17.210 - Nicotine dependence, cigarettes, uncomplicated Plan: Patient is strongly advised to stop smoking! (6) Anemia: Code(s): D64.9 - Anemia, unspecified Plan: Anemia to continue on follow-up (7) Generalized anxiety disorder: Code(s): F41.1 - Generalized anxiety disorder Plan: Stable (8) Olecranon bursitis of right elbow: Code(s): M70.21 - Olecranon bursitis, right elbow Plan: Reassurance for now but if getting worse to call and we will refer to orthopedics declined any medication Orders: Orders Complete Blood Count Auto Diff 3 Months E11.65 - Type 2 diabetes mellitus with hyperglycemia Lipid Panel 3 Months E11.65 - Type 2 diabetes mellitus with hyperglycemia, E78.00 - Pure hypercholesterolemia, unspecified Ferritin 3 Months E11.65 - Type 2 diabetes mellitus with hyperglycemia Vitamin B12 and Folate 3 Months E11.65 - Type 2 diabetes mellitus with hyperglycemia Creatinine Urine 3 Months E11.65 - Type 2 diabetes mellitus with hyperglycemia AMB Hemoglobin A1c Today E11.65 - Type 2 diabetes mellitus with hyperglycemia Comprehensive Met. Panel 3 Months E11. - Type 2 diabetes mellitus with hyperglycemia Hemoglobin A1c 3 Months E11.65 - Type 2 diabetes mellitus with hyperglycemia Free T4 (Free Thyroxine) 3 Months E11.65 - Type 2 diabetes mellitus with hyperglycemia Thyroid Stimulating Hormone 3 Months E11. - Type 2 diabetes mellitus with hyperglycemia IRON PROFILE 3 Months E11.65 - Type 2 diabetes mellitus with hyperglycemia Reticulocyte Count 3 Months E11.65 - Type 2 diabetes mellitus with hyperglycemia Prostate Specific Antigen Scr 3 Months E11.65 - Type 2 diabetes mellitus with hyperglycemia Microalbumin, Random (w Creat) 3 Months E11.65 - Type 2 diabetes mellitus with hyperglycemia Uric Acid 3 Months E11.65 - Type 2 diabetes mellitus with hyperglycemia UA w Microscopic 3 Months E11.65 - Type 2 diabetes mellitus with hyperglycemia Medications: Changed From lisinopril 30 mg PO DAILY 30 days 30 tabs 3RF E10.9 - Type 1 diabetes mellitus without complications To lisinopril 30 mg PO DAILY 90 days 90 tabs 3RF E10.9 - Type 1 diabetes mellitus without complications Refilled dulaglutide 3 mg (0.5 mL) subcut QWEEK 30 days 2.5 mL 5RF E11.65 - Type 2 d iabetes mellitus with hyperglycemia Discontinued nicotine Discontinued Reason: Patient Refused 1 patch transdermal DAILY 28 ea 0RF F17.210 - Nicotine dependence, cigarettes, uncomplicated nicotine Discontinued Reason: Patient Refused 1 patch transdermal DAILY 28 ea 0RF F17.210 - Nicotine dependence, cigarettes, uncomplicated Coding Level of Care Code Est Pt Level 4 (72508) Diagnoses Type 2 diabetes mellitus with hyperglycemia E11. Essential hypertension I10 Hypertension type: essential hypertension Hypercholesterolemia E78.00 Pulmonary nodule R91.1 Nicotine dependence, cigarettes, uncomplicated F17.210 Anemia D64.9 Generalized anxiety disorder F41.1 Olecranon bursitis of right elbow M70.21
== END 2024-06-10 10:07 | disposition home or self-care (01) ==
PROVIDERS: PCP Internal Medicine; Visit Provider Internal Medicine
DX: E11.65 Type 2 diabetes mellitus with hyperglycemia (principal); I10 Essential (primary) hypertension; E78.00 Pure hypercholesterolemia, unspecified; R91.1 Solitary pulmonary nodule; F17.210 Nicotine dependence, cigarettes, uncomplicated; D64.9 Anemia, unspecified; F41.1 Generalized anxiety disorder; M70.21 Olecranon bursitis, right elbow
CPT/HCPCS: 83036; 99214

== ENCOUNTER 2024-06-21 13:32 | Outpatient (AMB) | payer OTHER, SELFPAY ==
[2024-06-21 13:35] VITALS: BP 120/64; PULSE 74; O2SAT 98; BMI 25.4
--- NOTE | 2024-06-21 13:35 | MHC.PC.OV ---
Vital Signs 06/21/24 13:35 Height 5 ft 11 in Weight 182 lb BMI 25.4 BP 120/64 Blood Pressure Location Lt brachial Position Sitting Pulse 74 Pulse Source Pulse Oximeter Pulse Oximetry (%) 98 Oxygen Delivery Method Room Air Intake Visit Reasons: Right elbow fluid build up Intake Note: pt c/o fluid build up on right elbow [id number] with no relief Park Manager Required: No Allergies No Known Allergies [No Known Allergies*] Allergy (Verified 06/21/24 13:36) Medication List - Last Reconciled 06/21/24 by Jil Virk PA-C blood-glucose sensor (FreeStyle Roberto 3 Sensor device) DIRECTED dulaglutide 3 mg (0.5 mL) subcut QWEEK 30 days gabapentin 300 mg PO TID 90 days glucagon 3 mg/actuation (Baqsimi) 3 mg intranasal ONCE hydrochlorothiazide 25 mg PO QAM ibuprofen 800 mg PO Q8H insulin degludec (Tresiba FlexTouch U-100 insulin) 32 units (0.32 mL) subcut DAILY latanoprost 0.005% 1 drp ophthalmic (eye) BEDTIME lisinopril 30 mg PO DAILY 90 days metformin 1,000 mg (2 x 500 mg) PO BID pen needle, diabetic (Comfort EZ Pen [place]) As directed pen needle, diabetic (BD Rowena 2nd Gen Pen Needle) As directed once a day simvastatin 40 mg PO QPM 90 days travoprost 0.004% (Travatan Z) 1 drp ophthalmic (eye) QPM Tobacco use date assessed: 02/11/24 Dental Screening Dental Screen Date: 02/11/24 HPI Right elbow fluid build up HPI Details 58-year-old male with past medical history of diabetes mellitus, generalized anxiety disorder, hepatic steatosis, hypercholesterolemia, hypertension last seen by Dr. Park 06/10/24 coming in for acute problem.? Patient was diagnosed with olecranon bursitis at his last visit with question of orthopedic referral if symptoms worsen. Patient states he has tried Tylenol, ibuprofen, and heat per Dr. Park's instructions with no relief in pain. He still has significant pain on the right elbow as well as a large bump. He denies any interference with range of motion or numbness and tingling in the arm or hand. He is asking for orthopedic referral for possible drainage of the bursa. [facility] Medical History Preop exam for internal medicine Colon cancer screening Nicotine dependence, cigarettes, uncomplicated Uncontrolled type 2 diabetes mellitus with hyperglycemia (~1999) Generalized anxiety disorder Glaucoma Thoracic radiculopathy due to degenerative joint disease of spine Anxiety Hepatitis C antibody positive in blood Hepatitis B Hypercholesterolemia Hypertension Surgical History History of cervical spinal surgery History of fusion of cervical spine Family History Father Hypertension Mother Hypertension Maternal Uncle Pancreatic cancer Sister Substance abuse Brother Substance abuse Bladder cancer Social History Household Members: Spouse Household Members Other:: Housing: House Alcohol intake: never Patient Tobacco Use Status: Current everyday Tobacco user Tobacco use type: Cigarette Cigarette Packs Per Day: 1 Years Smoked: (onset 12yo, 1ppd x 45yrs, 40+PYH) e-Cigarette/Vaping Use: Never Used Second Hand Smoke Exposure: No service: No Current occupational status: unemployed Cognitive needs: No Hearing needs: No Vision needs: No Questionnaire Thrive Questionnaire Date Thrive assessed: 06/10/24 AUDIT C Alcohol Use Questionnaire (AUDIT-C) 1. How often do you have a drink containing alcohol?: Never 3. How often do you have six or more drinks on one occasion?: Never Total Score: 0 TARYN-7 AMB Questionnaire TARYN-7 Date TARYN - 7 assessed: 12/31/22 Source: Developed by Drs. Giacomo Lira, Kathleen Irizarry, Luis E Workman and colleagues, with an educational christin from [employer]. Review of Systems Const Denies body aches, Denies chills and Denies fever(s) Eyes Reports no additional complaints ENT Reports no additional complaints Card Reports no additional complaints and Denies chest pain Resp Reports no additional complaints GI Reports no additional complaints Reports no additional complaints Musc Details: Right elbow pain and swelling Denies abnormal gait Skin/Breast Reports system reviewed and no additional complaints, except as documented Neuro Denies abnormal gait Psych Reports no additional complaints Physical exam (Primary Care) Vital Signs: Oxygen Delivery Method Room Air 06/21/24 13:35 BMI result Body Mass Index 25.4 Tobacco/Smoking Status: Tobacco use Status Tobacco use date assessed 02/11/24 06/21/24 13:36 Patient Tobacco Use Status Current everyday Tobacco 06/21/24 13:36 Tobacco use type Cigarette 06/21/24 13:36 e-Cigarette/Vaping Use Never Used 06/21/24 13:36 Thrive Assessment: Date of Thrive Assessment Date Thrive assessed 06/10/24 06/21/24 13:36 Const General: cooperative, healthy appearing, comfortable and no acute distress Orientation/consciousness: patient oriented x3 HENMT Head: Yes normocephalic Ears: hearing grossly normal bilaterally General nose exam: Normal external nose present Eyes General: appearance normal, both eyes and all related structures Conjunctivae: conjunctivae normal Neck Neck: Yes full ROM and Yes no lymphadenopathy Resp Effort & Inspection: normal respiratory effort Auscultation: clear to auscultation bilaterally, no crackles, no rales, no rhonchi and no wheezes Cardio Rate: regular rate Rhythm: regular rhythm Skin General skin exam: no rashes or lesions noted Neuro General: patient oriented x3 Gait exam (Neuro): Normal gait present Extrem Other: Right elbow tenderness to palpation and soft bump over the olecranon without overlying erythema or warmth. Pulses, strength, sensation intact in bilateral upper extremities. General: Yes normal to inspection, Yes full ROM and No edema Psych Affect: normal affect Attitude: cooperative Insight: Good insight present (Psych) Judgement: Good judgement present (Psych) Assessment and Plan Assessment & Plan (1) Olecranon bursitis of right elbow: Code(s): M70.21 - Olecranon bursitis, right elbow Plan: Patient was seen previously by Dr. Park for this issue and symptoms have been going on for around 3 weeks now. He has trialed conservative measures such as heat, ice, Tylenol, and ibuprofen with no relief. He still continues to have pain and swelling in the right elbow. Referral to orthopedics placed for possible drainage. Plan This note was constructed using voice recognition software. While every effort has been made to ensure accuracy and heating plant superintendent, still areas may have been included sometimes these areas may affect the content or meeting of the given symptoms. Total time spent caring for the patient today was 20 minutes. This includes time spent before the visit reviewing the chart, time spent during the visit, and time spent after the visit and documentation. Orders: Referrals Orthopedics Referral M70.21 - Olecranon bursitis, right elbow Coding Level of Care Code Est Pt Level 4 (37157) Diagnoses Olecranon bursitis of right elbow M70.21
== END 2024-06-21 13:58 | disposition home or self-care (01) ==
PROVIDERS: PCP Internal Medicine
DX: M70.21 Olecranon bursitis, right elbow (principal)
CPT/HCPCS: 99214

== ENCOUNTER 2024-10-17 06:41 | Outpatient (REF) | payer OTHER, SELFPAY ==
[2024-10-17 07:19] LABS: MANUAL DIFF FLAG NO
[2024-10-17 07:28] LABS: Basophils Absolute Auto 0.1 X10*3/uL (0.0-0.2); Basophils Percent Auto 0.8 % (0-2); Eosinophils Absolute Auto 0.3 X10*3/uL (0.0-0.4); Eosinophils Percent Auto 2.9 % (0-4); Hematocrit 41.2 % (42.0-52.0); Hemoglobin 14.2 g/dl (14.0-18.0); Imm Gran Abs Auto 0.03 X10*3/uL (0.00-0.03); Imm Gran Pct Auto 0.3 % (0.0-0.4); Immature Retic Fraction 8.7 % (2.3-13.4); Lymphocytes Absolute Auto 3.3 X10*3/uL (1.2-4.9); Lymphocytes Percent Auto 32.4 % (20-40); Mean Corpuscular HGB Conc 34.5 g/dl (31.0-36.0); Mean Corpuscular Hemoglobin 29.4 pg (27.0-33.0); Mean Corpuscular Volume 85.3 fL (80.0-98.0); Mean Platelet Volume 10.2 fL (9.4-12.4); Monocytes Absolute Auto 0.8 X10*3/uL (0.1-1.2); Monocytes Percent Auto 8.3 % (2-11); Neutrophils Absolute Auto 5.6 x10*3/uL (2.0-8.3); Neutrophils Percent Auto 55.3 % (45-73); Platelet Count 272 X10*3/uL (160-400); Red Blood Count 4.83 X10*6/uL (4.60-5.80); Red Cell Distribution Width 12.8 % (11.0-16.0); Retic HGB Equivalent 33.4 pg (30.0-35.0); Reticulocyte Percent 1.2 % (0.5-1.8); Reticulocytes Absolute 0.058 X10*6/uL (0.026-0.095); White Blood Count 10.1 X10*3/uL (4.8-10.8)
[2024-10-17 07:50] LABS: Estimated Average Glucose 140 mg/dL; Hemoglobin A1C 170.7999 umol/L; Hemoglobin A1c % 6.5 % (<6.0)
[2024-10-17 07:55] LABS: Creatinine Urine 148.09 mg/dL; Microalbum/Creatinine Ratio Ur 10.1 ug/mg cr (<30)
[2024-10-17 08:03] LABS: Appearance Urine Clear; Color Urine Yellow; Glucose Urine UA 100 mg/dL (Negative); Leukocyte Esterase Urine Negative (Negative); Nitrite Urine Negative (Negative); PH 6.5 (5.0-9.0); Urine Blood Negative (Negative); Urine Ketones Negative (Negative); Urine Protein Negative (Neg-Trace)
[2024-10-17 08:10] LABS: Bacteria Urine None Seen (None Seen); Hyaline Casts Urine 0-2 /LPF (0-2); RBC Urine 0-2 /HPF (0-2); Squamous Epithelial Cell Urine 0-2 /HPF (0-2); WBC Urine 0-5 /HPF (0-5)
[2024-10-17 08:32] LABS: Alanine Aminotransferase 19 U/L (0-40); Albumin Level 4.4 g/dL (3.5-5.0); Alkaline Phosphatase 52 U/L (39-117); Anion Gap 11 (12-20); Aspartate Amino Transferase 17 U/L (5-37); Bilirubin Total 0.3 mg/dL (0.0-1.0); Blood Urea Nitrogen 16 mg/dL (9-16); Calcium 9.9 mg/dL (8.4-10.2); Carbon Dioxide 27 mmol/L (22-29); Chloride 100 mmol/L (96-108); Cholesterol 128 mg/dL (<200); Estimated Glomerular Filt Rate > 60; Glucose Random 120 mg/dL (60-115); HDL Cholesterol 32 mg/dL (>40); Iron 65 mcg/dL (45-160); LDL Cholesterol Calculated 65 mg/dL (<100); Percent Iron Saturation 19 % (15-50); Potassium 4.4 mmol/L (3.3-5.1); Sodium 134 mmol/L (135-145); Total Iron Binding Capacity 349 mcg/dL (228-428); Total Protein 7.2 g/dL (6.5-8.0); Triglycerides 155 mg/dL (<150); Unsaturated Iron Binding 284 ug/dL
[2024-10-17 08:41] LABS: Ferritin 57 ng/mL (20-250); Free T4 (Free Thyroxine) 1.07 ng/dL (0.71-1.85); Thyroid Stimulating Hormone 1.61 uIU/mL (0.32-4.0); Uric Acid 4.2 mg/dL (3.4-7.0)
[2024-10-17 08:53] LABS: Folate 11.1 ng/mL (> or = 4.0); Prostate Specific Antigen Scr 1.93 ng/mL (<0.05-4.0); Vitamin B12 570 pg/mL (200-900)
== END 2024-10-17 06:42 | disposition home or self-care (01) ==
LOC: HO.LAB 06:41
PROVIDERS: PCP Internal Medicine; Visit Provider Internal Medicine
DX: E11.65 Type 2 diabetes mellitus with hyperglycemia (principal); E78.00 Pure hypercholesterolemia, unspecified; Z12.5 Encounter for screening for malignant neoplasm of prostate
CPT/HCPCS: 36415; 80053; 80061; 81001; 82043; 82570; 82607; 82728; 82746; 83036; 83540; 84153; 84439; 84443; 84550; 85025; 85045

== ENCOUNTER 2024-10-19 09:27 | Outpatient (AMB) | payer OTHER, SELFPAY ==
[2024-10-19 09:36] VITALS: BP 138/72; PULSE 83; O2SAT 98; BMI 26.1
--- NOTE | 2024-10-19 09:36 | MHC.PC.OV ---
Vital Signs 10/19/24 09:36 Height 5 ft 11 in Weight 187 lb BMI 26.1 BP 138/72 Blood Pressure Location Lt brachial Position Sitting Pulse 83 Pulse Source Pulse Oximeter Pulse Oximetry (%) 98 Oxygen Delivery Method Room Air Intake Visit Reasons: 3mth f/u Allergies No Known Allergies [No Known Allergies*] Allergy (Verified 10/19/24 09:36) Tobacco use date assessed: 10/19/24 Dental Screening Dental Screen Date: 10/19/24 Did you have a dental visit in the last 12 months?: No Did you have a dental problem in the last 6 months where you did not have access to dental care?: No Was dental information given to patient?: Patient has dentist HPI 3mth f/u HPI Details The patient is a 59-year-old male presenting with a follow-up for chronic conditions, including diabetes mellitus, hypertension, and hypercholesterolemia. Additionally, he requires evaluation of his right elbow bursitis. He has a history of Type 2 diabetes mellitus, currently managed with insulin, and had a recent HbA1c of 6.5%. He reported a 5-pound weight gain, attributed to dietary habits, and maintains his nicotine dependence, smoking up to three-quarters of a pack per day. In terms of liver and kidney function, his hepatic steatosis remains stable with normal liver function tests. His renal function is within normal limits, with creatinine recorded at 1.02, yet he occasionally uses ibuprofen which could negatively impact the kidneys. He previously experienced right elbow bursitis, which developed without overt cause, but spontaneously resolved after approximately 1.5 weeks. The patient did not follow up with orthopedics as previously recommended. - Smoker with reported regular usage of up to three-quarters of a pack per day. - Engages in regular physical activity, including walking his dog. - Reports consuming meals leading to weight gain. - Receives regular medication injections and insulin administration. - Complaints of neck and back discomfort managed with occasional NSAIDs. - General: Reports neck and back pain. - Gastrointestinal: Denies nausea, vomiting, bowel movement changes, or constipation. - Genitourinary: Reports nocturia once or twice per night, otherwise normal urination. - Neurological: Denies dizziness. - Respiratory: Denies chest pain, reports mild breathing issues. - Integumentary: Reports reaction to skin sugars sensor - Labs: - Hemoglobin A1c: 6.5% - Creatinine: 1.02 - Sodium: 134 - LDL: 65 - Urine creatinine ratio: 10 - Normal liver function tests - Normal complete blood count [facility] Medical History Preop exam for internal medicine Colon cancer screening Nicotine dependence, cigarettes, uncomplicated Uncontrolled type 2 diabetes mellitus with hyperglycemia (~1999) Generalized anxiety disorder Glaucoma Thoracic radiculopathy due to degenerative joint disease of spine Anxiety Hepatitis C antibody positive in blood Hepatitis B Hypercholesterolemia Hypertension Surgical History History of cervical spinal surgery History of fusion of cervical spine Family History Father Hypertension Mother Hypertension Maternal Uncle Pancreatic cancer Sister Substance abuse Brother Substance abuse Bladder cancer Social History Household Members: Spouse Household Members Other:: Housing: House Alcohol intake: never Patient Tobacco Use Status: Current everyday Tobacco user Tobacco use type: Cigarette Cigarette Packs Per Day: 1 Years Smoked: (onset 12yo, 1ppd x 45yrs, 40+PYH) e-Cigarette/Vaping Use: Never Used Second Hand Smoke Exposure: No service: No Current occupational status: unemployed Cognitive needs: No Hearing needs: No Vision needs: Yes Questionnaire PHQ-9 Over the last 2 weeks, how often have you been bothered by any of the following problems? 1. Little interest or pleasure in doing things: not at all 2. Feeling down, depressed, or hopeless: not at all 3. Trouble falling or staying asleep, or sleeping too much: not at all 4. Feeling tired or having little energy: not at all 5. Poor appetite or overeating: not at all 6. Feeling bad about yourself - or that you are a failure or have let yourself or your family down: not at all 7. Trouble concentrating on things, such as reading the newspaper or watching television: not at all 8. Moving or speaking so slowly that other people could have noticed. Or the opposite - being so fidgety or restless that you have been moving around a lot more than usual: not at all 9. Thoughts that you would be better off or of hurting yourself in some way: not at all Total score: 0 Depression Screening Interpretation: Negative Depression Screening Done: Yes Source: Developed by Drs. Giacomo Lira, Luis E Rodríguez and colleagues, with an educational christin from [employer]. Thrive Questionnaire Date Thrive assessed: 10/19/24 I am a: Patient What is your living situation today?: I have a steady place to live Within the past 12 months, did the food you bought not last and you didn't have the money to get more?: Never true Within the past 12 months, did you worry whether your food would run out before you got money to buy more?: Never true Do you have trouble paying for medicines?: No Do you have trouble getting transportation to medical appointments?: No Do you have trouble paying your heating and electricity bill?: No Do you have trouble taking care of your child, family member or friend?: No Do you have trouble with day-to-day activities such as bathing, preparing meals, shopping, managing finances, etc.?: No Are you currently unemployed and looking for a job?: No Are you interested in more education?: No Currently or been in a relationship where the following occur: No concerns reported THRIVE Score: 0 AUDIT C Alcohol Use Questionnaire (AUDIT-C) 1. How often do you have a drink containing alcohol?: Never 3. How often do you have six or more drinks on one occasion?: Never Total Score: 0 TARYN-7 AMB Questionnaire TARYN-7 Date TARYN - 7 assessed: 10/19/24 Feeling nervous, anxious, or on edge: 0 = Not at all Not being able to stop or control worryin = Not at all Worrying too much about different things: 0 = Not at all Trouble relaxin = Not at all Being so restless that it is hard to sit still: 0 = Not at all Becoming easily annoyed or irritable: 0 = Not at all Feeling afraid as if something awful might happen: 0 = Not at all Total TARYN-7 score (0-4 normal; 5-9 mild; 10-14 moderate; 15-21 severe): 0 Source: Developed by Drs. Giacomo Lira, Luis E Rodríguez and colleagues, with an educational christin from [employer]. Physical exam (Primary Care) Vital Signs: Last Vital Signs Pulse 83 10/19/24 09:36 BP 138/72 10/19/24 09:36 Pulse Ox 98 10/19/24 09:36 Oxygen Delivery Method Room Air 10/19/24 09:36 BMI result Body Mass Index 26.1 Tobacco/Smoking Status: Tobacco use Status Tobacco use date assessed 10/19/24 10/19/24 09:40 Patient Tobacco Use Status Current everyday Tobacco 10/19/24 09:40 Tobacco use type Cigarette 10/19/24 09:40 e-Cigarette/Vaping Use Never Used 10/19/24 09:40 PHQ-9: PHQ-9 Score PHQ-9: Total score 0 10/19/24 10:14 Depression Screening Interpretation: Negative Thrive Assessment: Date of Thrive Assessment Date Thrive assessed 10/19/24 10/19/24 09:40 Currently or been in a relationship where the following occur: No concerns reported Coding Level of Care Code Est Pt Level 4 (44215) Complex EM visit Add On G2211 Diagnoses Type 2 diabetes mellitus with hyperglycemia, with long-term current use of insulin E11.65; Z79.4 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 insulin use: with senior living use Nicotine dependence, cigarettes, uncomplicated F17.210 Essential hypertension I10 Hypertension type: essential hypertension Hypercholesterolemia E78.00 Generalized anxiety disorder F41.1 Assessment & Plan Assessment & Plan (1) Type 2 diabetes mellitus with hyperglycemia: Comment: [place] eye exam Code(s): E11.65 - Type 2 diabetes mellitus with hyperglycemia Category: Medical Qualifiers: 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 insulin use: with senior living use Qualified Code(s): E11.65 - Type 2 diabetes mellitus with hyperglycemia; Z79.4 - salvage determiner (current) use of insulin Plan: Decrease the amount of carbohydrate intake, pasta, bread, rice and potatoes are all sugar and that is aside from all the sweet stuff, remember that fruits are good but they are Sweet also. Presently on Trulicity 3 mg once a week Tresiba 32 units once a day metformin a 1000 mg twice a day (2) Nicotine dependence, cigarettes, uncomplicated: Comment: (current smoker - onset 12yo, 1ppd x 45yrs, 40+PYH) Code(s): F17.210 - Nicotine dependence, cigarettes, uncomplicated Category: Medical Plan: Patient is strongly advised to stop smoking! (3) Hypertension: Code(s): I10 - Essential (primary) hypertension Category: Medical Qualifiers: Hypertension type: essential hypertension Qualified Code(s): I10 - Essential (primary) hypertension Plan: Continue with blood pressure medication. Decrease salt intake and exercise continue with lisinopril 30 mg once a day hydrochlorothiazide 25 mg once a day (4) Hypercholesterolemia: Code(s): E78.00 - Pure hypercholesterolemia, unspecified Category: Medical Plan: Avoid fried foods, chicken skin, eggs, butter margarine, pastries and meat. Be it pork or beef they have a lot of cholesterol LDL goal of less than 100 and triglyceride of less than 150 on simvastatin 40 mg once a day (5) Generalized anxiety disorder: Code(s): F41.1 - Generalized anxiety disorder Category: Medical Plan: stable Plan - Overweight: Encourage dietary modification and weight management strategies to address recent weight gain. - Diabetes Mellitus, Type 2: Continue current insulin regimen; monitor glucose levels closely, consider alternative glucose monitoring system due to skin irritation. - Nicotine Dependence: Discuss smoking cessation strategies, including benefits of reduction and cessation over time. - Generalized Anxiety Disorder: Monitor symptoms; consider psychological support if symptoms persist or worsen. - Nephrolithiasis: Monitor renal function; advise against frequent NSAID use due to potential renal impact. - Hepatic Steatosis: Continue monitoring liver function; encourage lifestyle changes including exercise and dietary modification to prevent further liver damage. - Essential Hypertension: Blood pressure is well-controlled; continue current antihypertensive regimen. - Hypercholesterolemia: LDL level is within target range; continue current lipid-lowering therapy. - Right Elbow Bursitis: Continue monitoring and managing symptoms as needed; advise rest and joint care. I discussed with the patient the current status of his chronic conditions. We reviewed the importance of glycemic control, acknowledged a positive HbA1c trend, and emphasized maintaining dietary habits to support overall health. We discussed smoking cessation and its long-term health benefits, particularly on cardiovascular and pulmonary health. I addressed the need for close monitoring of renal function due to his occasional NSAID use and instructed on careful monitoring of symptoms and kidney protection measures. As his right elbow bursitis symptoms have resolved spontaneously, no immediate intervention was required, but I advised seeking care should symptoms reoccur. We also reviewed the importance of scheduled follow-up for chronic disease management and agreed on a 3-month follow-up to assess ongoing health management. - Continue insulin regimen and monitor glucose levels regularly. - Avoid excessive NSAID use; consult if pain persists or requires management. - Follow dietary recommendations to support weight loss. - Consider reducing smoking frequency; utilize available resources for smoking cessation. - Maintain regular physical activity. - Report any new or worsening symptoms. - Follow up in 3 months for re-evaluation of current management plan.
--- OUTSIDE RECORDS SUMMARY | 2024-10-25 17:08 | XMS_ITS ---
Author Organization [facility] Address [address] [place] [address] Care Team Providers Care Cherry Cutter Name Role Phone Verenice Park Primary Care Provider Nicholas Kee Unavailable [phone] Virginia Borges [phone] Rebolledo Encounters Encounter Location Date Provider Diagnosis [address] [address] 12/08/2023 Virginia Borges Plan Of Treatment Next Appt Details Provider Name:Virginia knowles, 12/23/2024 11:00:00 AM, [address] [place] [address], [phone], Progress Notes * ENRIQUESarthakDOB: 7 (59 yo M)Acc No.[id number]:12/08/2023 Progress Notes Patient:?Sarthak NUNEZ Provider:?Virginia Borges DPM :1965???Age:58 Y???Sex:Male Ga e:12/08/2023 Address:[address] [place] [address] [address] [phone] Pcp:Verenice Park Subjective: * Chief Complaints: * ???1. Dr Rebolledo. * Medical History:? Objective: * Vitals:? Assessment: Plan: * Treatment: * Images: * The named appointment provid er may or may not be the originator of this progress note, and it is not deemed complete until electronically signed by the appointment provider. Sign off status: Pending * Provider:Kobe Borges DPM Date:? Generated for Nura fisher/Ella/Fouzia on:?10/25/2024 05:07 PM EST
--- OUTSIDE RECORDS SUMMARY | 2024-10-25 17:08 | XMS_ITS | Patient Health Record ---
Author Organization [facility] Address [address] [place] [place] [address] Care Team Providers Care Supervisor Paper Testing Name Role Phone Xavier Staceyfelipa Primary Care Provider Nicholas Kee Unavailable [phone] Virginia Borges Unavailable [phone] Allergies No Known Allergies Results Component Value Reference Range Notes HEMOGLOBIN A1C (GLYCOHEMOGLO BIN) Reviewed date:11/06/2023 01:34:37 PM Interpretation: Performing Lab: Notes/Report: HEMOGLOBIN A1C (HH) 6.5 Reason For Referral No Information Medications Medication SIG (Take, Route, Frequency, Duration) Notes Start Date End Date Status Latanoprost Active Ibuprofen 800 MG 1 tablet with food o r milk as needed Orally every 8 hrs for 7 days 11/26/2023 Active Percocet 5-325 MG 1 tablet as needed O rally every 4-6 hrs as needed for breakthrough pain for 3 days 11/26/2023 Active Aspir-81 Not-Taking Simvastatin 40 MG 1 tablet in the even ing Orally Once a day for 30 day(s) Active Lisinopril 40 MG 1 tablet Orally Once a day for 30 day(s) Active Gabapentin 300 MG 1 capsule Orally Onc e a day for 30 day(s) Active Tresiba Active metFORMIN HCl 500 MG 1 tablet with a bhaskar l Orally Once a day for 30 day(s) Active Immunizations Vaccine Route Administration Date Status Comme nts Influenza Unknown 07/24/2023 Administered Social History Tobacco Use: Social History Observation Description Date Details (start date - stop date) Current Smoker NA - NA Tobacco Use/Smoking Question Answer Notes Are you a: current smoker How often do you smoke cigarettes? every day How many cigarettes a day do you smoke? 11-20 How soon after you wake up do you smoke your fir st cigarette? 31-60 minutes Alcohol Screen Question Answer Notes Did you have a drink containing alcohol in the p ast year? No Points 0 Interpretation Negative Tobacco use other than smoking: Question Answer Notes Are you an other tobacco user? No Problems Problem Type SNOMED Code ICD Code Onset Dates Problem Status W/U Status Risk Notes Problem Polyneuropathy due to type 2 diabetes mellitus (988384765) Type 2 diabetes mellitus with diabetic polyneuropathy (E11.42) Active confirmed Problem Acquired hammer toe of right foot ([id number] ) Other hammer toe(s) (acquired), right foot (M20.41) Active confirmed Vital Signs Height 5ft 8in in 12/22/2023 Weight 189 lbs 12/22/2023 BMI 28.73 kg/m2 12/22/2023 Encounters Encounter Location Date Provider Diagnosis Surgery [facility] ([facility]/[address] [address] 11/25/2023 Virginia Perica [facility] [address] 11/06/2023 Virginia Perica Pain in right toe(s) M79.674 ; Other hammer toe(s) (acquired), right foot M20.41 and Type 2 diabetes mellitus with diabetic polyneuropathy E11.[address] [address] 12/01/2023 Virginia Perica Pain in right toe(s) M79.674 ; Other hammer toe(s) (acquired), right foot M20.41 and Type 2 diabetes mellitus with diabetic polyneuropathy E11.[address] [address] 12/09/2023 Virginia Perica Type 2 diabetes mellitus with diabetic polyneuropathy E11.42 and Other hammer toe(s) (acquired), right foot M20.[address] [address] 12/22/2023 Virginia Perica Type 2 diabetes mellitus with diabetic polyneuropathy E11.42 and Other hammer toe(s) (acquired), right foot M20.41 [facility] [address] [place] [address] 11/18/2023 [facility] [address] [place] [address] 11/26/2023 [facility] [address] [facility] [address] [place] [address] 11/26/2023 [facility] [address] [place] [address] 12/01/2023 [facility] Assessments Encounter Date Diagnosis (ICD Code) Assessment Notes Treatment Notes Treatment Clinical Notes Section Notes 11/06/2023 Pain in right toe(s) (ICD-10 - M79.674) 11/06/2023 Other hammer toe(s) (acquired), right foot (ICD-10 - M20.41) 12/01/2023 Pain in right toe(s) (ICD-10 - M79.674) 12/01/2023 Other hammer toe(s) (acquired), right foot (ICD-10 - M20.41) 12/09/2023 Type 2 diabetes mellitus with diabetic polyneuropathy (ICD-10 - E11.42) 12/09/2023 Other hammer toe(s) (acquired), right foot (ICD-10 - M20.41) 12/22/2023 Type 2 diabetes mellitus with diabetic polyneuropathy (ICD-10 - E11.42) 12/22/2023 Other hammer toe(s) (acquired), right foot (ICD-10 - M20.41) 12/01/2023 Type 2 diabetes mellitus with diabetic polyneuropathy (ICD-10 - E11.42) 11/06/2023 Type 2 diabetes mellitus with diabetic polyneuropathy (ICD-10 - E11.42) Plan Of Treatment Pending Test Test Name Order Date X ray : Foot, right 3V 05/22/2023 X ray : Foot, right 3V 11/06/2023 X ray : Foot, right 3V 12/01/2023 [id number] SKIN LESIONS, 2 TO 4 05/22/20 23 Next Appt Details Provider Name:Virginia knowles 12/23/2024 11:00:00 AM, [address] [facility], [place], [address], Insurance Providers Payer Name Payer Address Payer Phone Subscriber Number Group Number Insured Name Patient Relationship to Insured Coverage Start Date Coverage End Date [employer] [address] [address] [place] [address] [id number] Kristi Nunez Spouse - patient is the spouse of the insured Medical (General) History Medical History History ICD Code Anxiety Back,Hip,and Knee pain Diabetic High blood pressure Numbness Poor circulation Chicken pox Joint implants/screws Glaucoma Surgical History Surgery Date(Month/Year) spinal fusion titanium plates HT R 4,5 DIAB P/B 11/25/23
--- OUTSIDE RECORDS SUMMARY | 2024-10-25 17:08 | XMS_ITS ---
Author Organization [facility] Lyle cervantes [place] Address [address] [place] [address] Care Team Providers Care English Language Learner Tutor Name Role Phone Verenice Park Primary Care Provider Nicholas Kee Unavailable [phone] Virginia Boregs Unavailable [phone] Allergies No Known Allergies REASON FOR VISIT pcp:12/09, Pcp- 11/25/23, Post-op Medications Medication SIG (Take, Route, Frequency, Duration) Notes Start Date End Date Status Latanoprost Active Ibuprofen 800 MG 1 tablet with food o r milk as needed Orally every 8 hrs for 7 days 11/26/2023 Active Gabapentin 300 MG 1 capsule Orally Onc e a day for 30 day(s) Active Tresiba Active metFORMIN HCl 500 MG 1 tablet with a bhaskar l Orally Once a day for 30 day(s) Active Percocet 5-325 MG 1 tablet as needed O rally every 4-6 hrs as needed for breakthrough pain for 3 days 11/26/2023 Active Aspir-81 Not-Taking Simvastatin 40 MG 1 tablet in the even ing Orally Once a day for 30 day(s) Active Lisinopril 40 MG 1 tablet Orally Once a day for 30 day(s) Active Social History Tobacco Use: Social History Observation [...] Are you an other tobacco user? No Vital Signs Height 5ft 8in in 12/22/2023 Weight 189 lbs 12/22/2023 BMI 28.73 kg/m2 12/22/2023 Encounters Encounter Location Date Provider Diagnosis [facility] [place] [address] [place] [address] 12/22/2023 Virginia Borges Type 2 diabetes mellitus with diabetic polyneuropathy E11.42 and Other hammer toe(s) (acquired), right foot M20.41 Assessments Encounter Date Diagnosis (ICD Code) Assessment Notes Treatment Notes Treatment Clinical Notes Section Notes 12/22/2023 Type 2 diabetes mellitus with diabetic polyneuropathy (ICD-10 - E11.42) 12/22/2023 Other hammer toe(s) (acquired), right foot (ICD-10 - M20.41) Plan Of Treatment Next Appt Details Follow Up: 1 Year, Reason: Provider Name:Virginia knowles, 12/23/2024 11:00:00 AM, [address] [place] [address], [address], Progress Notes * Sarthak NUNEZDOB: 7 (58 yo M)Acc No.[id number]:12/22/2023 Progress Notes Patient:?Enrique Sarthak Provider:?Virginia Borges DPM :1965???Age:58 Y???Sex:Male Ga e:12/22/2023 Address:[address] [place] [id number] Pcp:Verenice Park Subjective: * Chief Complaints: * ???Pcp:12/09Pcp- 11/25/23Pos t-op * HPI: ???Post-op:?The patient presents for post-op of?Hammertoe repair , 4th , 5th , Right.?Date of Surgery?:?11/25/2023 ?Current symptoms include?Pt denies fever, chills, nausea, calf pain, SOB, or increased anxiety, Pt states pain under control without medication.? Pt presents WB right with sneaker, relates no issues and toes improved from pre-op pain. * ROS:?General/Constitutional:?Nausea?denies, denies, denies.?Vomiting?denies, denies, denies.?Hunger Thirst?denies, denies, denies.?Loss appetite?denies, denies, denies.?Chills?denies, denies, denies.?Fatigue?denies, denies, denies.?Fever?denies, denies, denies.?Night Sweats?denies, denies, denies.?Unexplained weight loss?denies, denies, denies.?Unexplained weight gain?denies, denies, denies.?HEENTM:?Dentures?denies, denies, denies.?Dizziness?denies, denies, denies.?Glasses/contacts?denies, denies, denies.?Retinopathy?denies, denies, denies.?Blurred/double vision?denies, denies, denies.?TMJ?denies, denies, denies.?Discharge/drainage?denies, denies, denies.?Implants?denies, denies, denies.?Sore throat?denies, denies, denies.?Dental implants?denies, denies, denies.?Hard of hearing ?denies, denies, denies.?Difficulty chewing/swallowing/speaking denies, denies, denies.?Nose bleeds?denies, denies, denies.?Sore mouth?denies, denies, denies.?Respiratory:?On Oxygen?denies, denies, denies.?Pneumonia/pleurisy?denies, denies, denies.?Bronchitis?denies, denies, denies.?Emphysema?denies, denies, denies.?Coughing?denies, denies, denies.?Cough blood?denies, denies, denies.?Shortness of breath?denies, denies, denies.?Wheezing?denies, denies, denies.?Cardiovascular:?Pacemaker?denies, denies, denies.?MVP?denies, denies, denies.?WPW?denies, denies, denies.?CHF?denies, denies, denies.?Heart attack?denies, denies, denies.?Septal defect?denies, denies, denies.?Rapid beat denies, denies, denies.?Chest pain ?denies, denies, denies.?Atrial Fib.?denies, denies, denies.?Murmur/Palpitations?denies, denies, denies.?Gastrointestinal:?Hemorrhoids?denies, denies, denies.?Stomach/Abdominal pain?denies, denies, denies.?Dark blood stool?denies, denies, denies.?Irritable bowel ?denies, denies, denies.?Constipation?denies, denies, denies.?Diarrhea?denies, denies, denies.?Hematology:?Swelling?admits, admits, admits.?Clots?denies, denies, denies.?Varicose Veins?denies, denies, denies.?Bruising?denies, denies, denies.?Bleeding problem?denies, denies, denies.?Genitourinary:?Blood urine?denies, denies, denies.?Frequent/Painfu/urination/bladder control?denies, denies, denies.?Kidney stones?denies, denies, denies.?Infection (UTI)?denies, denies, denies.?Nephropathy?denies, denies, denies. sex trans dis (STD)?denies, denies, denies.?Prostate?denies, denies, denies.?Musculoskeletal:?Hammertoes?denies, denies, denies.?Bunions?denies, denies, denies.?Back Pain?denies, denies, denies.?Muscle Cramps/ Resting?denies, denies, denies.?Muscle cramps / walking?denies, denies, denies.?Generalized aches and pains?denies, denies, denies.?Weakness?denies, denies, denies.?Integ.:?Alejo?denies, denies, denies.?Scars?denies, denies, denies.?Corns/calluses?denies, denies, denies.?Ingrown nails?denies, denies, denies.?Painful nails?denies, denies, denies.?Open Sores?denies, denies, denies.?Rashes?denies, denies, denies.?Neurologic:?Difficulty sleeping?denies, denies, denies.?Brain disorder?denies, denies, denies.?Numbness?admits, admits, admits.?Balance trouble?denies, denies, denies.?Confusion?denies, denies, denies.?Fainting/blackouts?denies, denies, denies.?Tingling?admits, admits, admits.?Tremors?denies, denies, denies.? * Medical History:? * Surgical History:?spinal fus ion titanium plates HT R 4,5 DIAB P/B 11/25/23 * Hospitalization/Major Diagno stic Procedure:?Denies Past Hospitalization * Family History:?Mother: miguel a mccormick?Father: , diagnosed with Diabetic - NIDDM.?Siblings: diagnosed with Diabetic - NIDDM, Other malignant neoplasm of unspecified site.? * Social History:?Tobacco Use:?Tobacco Use/Smoking?Are you a:?current smoker ?How often do you smoke cigarettes??every day ?How many cigarettes a day do you smoke??11-20 ?How soon after you wake up do you smoke your first cigarette??31-60 minutes ?Tobacco use other than smoking?Are you an other tobacco user??No ???Drugs/Alcohol:?Drugs?Have you used drugs other than those for medical reasons in the past 12 months??No ?Alcohol Screen?Did you have a drink containing alcohol in the past year??No ?Points?0 ?Interpretation?Negative ???Miscellaneous:?Caffeine: yes, 2-3 cups per day. ?Children: yes. ?no Exercise, walking. ?Marital status: . ?Occupation: Disabled. * Medications:?TakingSimvastat in 40 MG Tablet 1 tablet in the evening Orally Once a dayLisinopril 40 MG Tablet 1 tablet Orally Once a dayGabapentin 300 MG Capsule 1 capsule Orally Once a dayTresiba metFORMIN HCl 500 MG Tablet 1 tablet with a meal Orally Once a dayLatanoprost Ibuprofen 800 MG Tablet 1 tablet with food or milk as needed Orally every 8 hrsPercocet 5-325 MG Tablet 1 tablet as needed Orally every 4-6 hrs as needed for breakthrough painTaking Simvastatin 40 MG Tablet 1 tablet in the evening Orally Once a dayTaking Lisinopril 40 MG Tablet 1 tablet Orally Once a dayTaking Gabapentin 300 MG Capsule 1 capsule Orally Once a dayTaking Tresiba Taking metFORMIN HCl 500 MG Tablet 1 tablet with a meal Orally Once a dayTaking Latanoprost Taking Ibuprofen 800 MG Tablet 1 tablet with food or milk as needed Orally every 8 hrsTaking Percocet 5-325 MG Tablet 1 tablet as needed Orally every 4-6 hrs as needed for breakthrough painNot-Taking/PRNAspir-81 Medication List reviewed and reconciled with the patientNot-Taking/PRN Aspir-81 Medication List reviewed and reconciled with the patient * Allergies:?N.K.D.A.yes[Aller gies Verified] Objective: * Vitals:?Ht: 5ft 8in, Wt:189, BMI:28.73, Shoe size: 1035w, BS: 236, Ht-cm: 172.72 cm, Wt-k.73 kg. * ???Past Orders: ???Lab:HEMOGLOBIN A1C (GLYCO HEMOGLOBIN) (Order Date - 11/05/2023) (Collection Date - 11/05/2023) ? Value Reference Range ?HEMOGLOBIN A1C (HH) 6.5 * Examination: ???Ophthalmology Referral: ?DIABETES EYE EXAM?Dermatologic: ?SURGICAL SITE?Incision edges are well aligned and adhered, CFT intact , No signs or symptoms consistent with infection , No?Pain on palpation/No??ecchymosis/No??edema, (-), erythema/hematoma/dehiscence/cellulitis.?Orthopedic: ?MUSCLE STRENGTH:?5/5 all groups in a symmetrical fashion, B/L.?DIGITAL DEFORMITIES:?alignment of toe is rectus in all plains 4, 5 Right.? Assessment: * Assessment: 1.?Type 2 diabetes mellitus with diabetic polyneuropathy - E11.42?2.?Other hammer toe(s) (acquired), right foot - M20.41 (Primary)? Plan: * Treatment: * Procedure Codes:? * Preventive Medicine:? ??Counseling:?Post-op:?I reviewed with the patient the usual surgical post-op course. The patient is to call with any questions/complications, and will follow-up as needed, gradually increase activity to tolerance, continue with accom firm-soled shoe for stability and support.? * Follow Up:?1 Year * Images: * Sign off status: Completed true * Provider:?Virginia Borges DPM Date:?04/2024 Generated for Nura fisher/Ella/Fouzia on:?10/25/2024 05:07 PM EST History and Physical Notes * HPI (History of Present Illness) Category Sub-Category Detail Notes Category Not es Post-op The patient presents for post-op of Hammertoe repair , 4th , 5th , Right Pt presents WB right with sneaker, relates no issues and toes improved from pre-op pain Current symptoms include Pt denies fever , chills, nausea, calf pain, SOB, or increased anxiety, Pt states pain under control without medication Date of Surgery :: 11/25/2023 Examination Category Sub-Category Detail Notes Category Not es Dermatologic SURGICAL SITE Incision edges a re well aligned and adhered, CFT intact , No signs or symptoms consistent with infection , No Pain on palpation/No ecchymosis/No edema, (-), erythema/hematoma/dehiscence/celluli tis Orthopedic DIGITAL DEFORMITIES: alignment o f toe is rectus in all plains 4, 5 Right MUSCLE STRENGTH: 5/5 all groups in a symmetrical fashion, B/L Ophthalmology Referral DIABETES EYE EXAM Diabetic Retinopa thy Screening:: Yes Findings of Diabetic Eye Exam:: no retin opathy
--- OUTSIDE RECORDS SUMMARY | 2024-10-25 17:08 | XMS_ITS ---
Author Organization [facility] Lyle cervantes [place] Address [address] [place] [address] Care Team Providers Care Web Content Coordinator Name Role Phone Verenice Park Primary Care Provider Nicholas Kee Unavailable [phone] Virginia Borges Unavailable [phone] Allergies No Known Allergies REASON FOR VISIT Pcp- 11/25/23, Post-op Medications Medication SIG (Take, Route, Frequency, Duration) Notes Start Date End Date Status metFORMIN HCl 500 MG 1 tablet with a bhaskar l Orally Once a day for 30 day(s) Active Ibuprofen 800 MG 1 tablet with food o r milk as needed Orally every 8 hrs for 7 days 11/26/2023 Active Latanoprost Active Aspir-81 Not-Taking Percocet 5-325 MG 1 tablet as needed O rally every 4-6 hrs as needed for breakthrough pain for 3 days 11/26/2023 Active Gabapentin 300 MG 1 capsule Orally Onc e a day for 30 day(s) Active Tresiba Active Lisinopril 40 MG 1 tablet Orally Once a day for 30 day(s) Active Simvastatin 40 MG 1 tablet in the [...] No Vital Signs Height 5ft 8in in 12/09/2023 Weight 189 lbs 12/09/2023 BMI 28.73 kg/m2 12/09/2023 Encounters Encounter Location Date Provider Diagnosis [facility] [place] [address] [place] [address] 12/09/2023 Virginia Borges Type 2 diabetes mellitus with diabetic polyneuropathy E11.42 and Other hammer toe(s) (acquired), right foot M20.41 Assessments Encounter Date Diagnosis (ICD Code) Assessment Notes Treatment Notes Treatment Clinical Notes Section Notes 12/09/2023 Type 2 diabetes mellitus with diabetic polyneuropathy (ICD-10 - E11.42) 12/09/2023 Other hammer toe(s) (acquired), right foot (ICD-10 - M20.41) Plan Of Treatment Next Appt Details Follow Up: 2 Weeks, Reason: Provider Name:Virginia knowles, 12/23/2024 11:00:00 AM, [address] [place], [address], Procedure Notes * Category Sub-Category Detail Notes Dressing Change: Type: dry sterile jose ssing , incorporating digital splintage to maintain position , a light compressive dressing Topical: bacitacin applied Removal of: sutures performed wi th sterile forceps/suture scissors or #15 blade, area cleaned with alcohol prior to removal , steri-strips applied Progress Notes * Sarthak NUNEZDOB: 7 (58 yo M)Acc No.[id number]:12/09/2023 Progress Notes Patient:?Enrique Sarthak Provider:?Virginia Borges DPM :1965???Age:58 Y???Sex:Male Ga e:12/09/2023 Address:[address] [place], [place] [id number] Pcp:Verenice Park Subjective: * Chief Complaints: * ???Pcp- 11/25/23Post-op * HPI: ???Post-op:?The patient presents for post-op of?Hammertoe repair , 4th , 5th , Right.?Date of Surgery?:?11/25/2023 ?Current symptoms include?Pt denies fever, chills, nausea, calf pain, SOB, or increased anxiety, Pt states pain under control with minimal medication.? Pt presents WB right with cane and post op shoe, pt states was not able to get day off work and drove himself to appt. Pt states hi foot was itching a lot, removed keisha bandage and has been using lotion on Q tips to foot. * ROS:?General/Constitutional:?Nausea?denies, denies.?Vomiting?denies, denies.?Hunger Thirst?denies, denies.?Loss appetite?denies, denies.?Chills?denies, denies.?Fatigue?denies, denies.?Fever?denies, denies.?Night Sweats denies, denies.?Unexplained weight loss?denies, denies.?Unexplained weight gain?denies, denies.?HEENTM:?Dentures?denies, denies.?Dizziness?denies, denies.?Glasses/contacts?denies, denies.?Retinopathy?denies, denies.?Blurred/double vision?denies, denies.?TMJ?denies, denies.?Discharge/drainage?denies, denies.?Implants?denies, denies.?Sore throat?denies, denies.?Dental implants?denies, denies.?Hard of hearing ?denies, denies.?Difficulty chewing/swallowing/speaking?denies, denies.?Nose bleeds?denies, denies.?Sore mouth?denies, denies.?Respiratory:?On Oxygen?denies, denies.?Pneumonia/pleurisy?denies, denies.?Bronchitis?denies, denies.?Emphysema?denies, denies.?Coughing?denies, denies.?Cough blood?denies, denies.?Shortness of breath?denies, denies.?Wheezing?denies, denies.?Cardiovascular:?Pacemaker?denies, denies.?MVP?denies, denies.?WPW?denies, denies.?CHF?denies, denies.?Heart attack?denies, denies.?Septal defect?denies, denies.?Rapid beat?denies, denies.?Chest pain ?denies, denies.?Atrial Fib.?denies, denies.?Murmur/Palpitations?denies, denies.?Gastrointestinal:?Hemorrhoids?denies, denies.?Stomach/Abdominal pain?denies, denies.?Dark blood stool?denies, denies.?Irritable bowel ?denies, denies.?Constipation?denies, denies.?Diarrhea?denies, denies.?Hematology:?Swelling?admits, admits.?Clots?denies, denies.?Varicose Veins?denies, denies.?Bruising?denies, denies.?Bleeding problem?denies, denies.?Genitourinary:?Blood urine?denies, denies.?Frequent/Painfu/urination/bladder control?denies, denies.?Kidney stones?denies, denies.?Infection (UTI)?denies, denies.?Nephropathy?denies, denies.?sex trans dis (STD)?denies, denies.?Prostate?denies, denies.?Musculoskeletal:?Hammertoes?denies, denies.?Bunions?denies, denies.?Back Pain?denies, denies.?Muscle Cramps/ Resting?denies, denies.?Muscle cramps / walking?denies, denies.?Generalized aches and pains?denies, denies.?Weakness?denies, denies.?Integ.:?Alejo?denies, denies.?Scars?denies, denies.?Corns/calluses?denies, denies.?Ingrown nails?denies, denies.?Painful nails?denies, denies.?Open Sores?denies, denies.?Rashes?denies, denies.?Neurologic:?Difficulty sleeping?denies, denies.?Brain disorder?denies, denies.?Numbness?admits, admits.?Balance trouble?denies, denies.?Confusion?denies, denies.?Fainting/blackouts?denies, denies.?Tingling?admits, admits.?Tremors?denies, denies.? * Medical History:? * Surgical History:?spinal [...] Vitals:?Ht: 5ft 8in, Wt:189, BMI:28.73, Shoe size: 10.5W, BS: 235, Ht-cm: 172.72 cm, Wt-k.73 kg. * ???Past Orders: ???Lab:HEMOGLOBIN A1C (GLYCO HEMOGLOBIN) (Order Date - 11/05/2023) (Collection Date - 11/05/2023) ? Value Reference Range ?HEMOGLOBIN A1C (HH) 6.5 * Examination: ???Ophthalmology Referral: ?DIABETES EYE EXAM?Dressing: ?APPEARANCE?Clean, dry, and intact, with dry to moist blood present, no malodor , loose and falling off , shows signs of wear.?Dermatologic: ?SURGICAL SITE?Skin and Sutures intact, Incision edges are well aligned and adhered, CFT intact , No signs or symptoms consistent with infection , (+), minimal Pain on palpation/LESS?ecchymosis/minimal?edema, (-), erythema/hematoma/dehiscence/cellulitis.?Orthopedic: ?MUSCLE STRENGTH:?5/5 all groups in a symmetrical fashion, B/L.?DIGITAL DEFORMITIES:?alignment of toe is rectus in all plains 4, 5 Right.? Assessment: * Assessment: 1.?Type 2 diabetes mellitus with diabetic polyneuropathy - E11.42?2.?Other hammer toe(s) (acquired), right foot - M20.41 (Primary)? Plan: * Treatment: * Procedures:?Dressing Change::?Type:?dry sterile dressing , incorporating digital splintage to maintain position , a light compressive dressing.?Topical:?bacitacin applied.?Removal of:?sutures performed with sterile forceps/suture scissors or #15 blade, area cleaned with alcohol prior to removal , steri-strips applied.? * Procedure Codes:? * Preventive Medicine:? ??Counseling:?Post-op:?I reviewed with the patient the usual surgical post-op course. The patient is to call with any questions/complications, and will follow-up as scheduled, return to accom firm-soled shoe for stability and support, gradually increase activity to tolerance, perform ROM (3-4 times a day; 20-25 reps each) exercises at the foot joint and ankle, Pt to continue to ice and elevate foot to help with post op swelling and pain, Pt can begin showering per usual starting tomorrow, can apply abx ointment to incisions to help with scarring.? * Follow Up:?2 Weeks * Images: * Sign off status: Completed true * Provider:Kobe Borges, JARETT Date:? Generated for Nura fisher/Ella/Fouzia on:?10/25/2024 05:07 PM EST History and Physical Notes * HPI (History of Present Illness) Category Sub-Category Detail Notes Category Not es Post-op The patient presents for post-op of Hammertoe repair , 4th , 5th , Right Pt presents WB right with cane and post op shoe, pt states was not able to get day off work and drove himself to appt. Pt states hi foot was itching a lot, removed keisha bandage and has been using lotion on Q tips to foot Current symptoms include Pt denies fever , chills, nausea, calf pain, SOB, or increased anxiety, Pt states pain under control with minimal medication Date of Surgery :: 11/25/2023 Examination Category Sub-Category Detail Notes Category Not es Dermatologic SURGICAL SITE Skin and Sutures intact, Incision edges are well aligned and adhered, CFT intact , No signs or symptoms consistent with infection , (+), minimal Pain on palpation/LESS ecchymosis/minimal edema, (-), erythema/hematoma/dehiscence/celluli tis Orthopedic DIGITAL DEFORMITIES: alignment o f toe is rectus in all plains 4, 5 Right MUSCLE STRENGTH: 5/5 all groups in a symmetrical fashion, B/L Ophthalmology Referral DIABETES EYE EXAM Diabetic Retinopa thy Screening:: Yes Findings of Diabetic Eye Exam:: no retin opathy Dressing APPEARANCE Clean, dry, and intact, with dry to moist blood present, no malodor , loose and falling off , shows signs of wear
== END 2024-10-19 10:16 | disposition home or self-care (01) ==
PROVIDERS: PCP Internal Medicine; Visit Provider Internal Medicine
DX: E11.65 Type 2 diabetes mellitus with hyperglycemia (principal); Z79.4 Long term (current) use of insulin; F17.210 Nicotine dependence, cigarettes, uncomplicated; I10 Essential (primary) hypertension; E78.00 Pure hypercholesterolemia, unspecified; F41.1 Generalized anxiety disorder

== ENCOUNTER 2025-01-30 09:05 | Outpatient (AMB) | payer OTHER, SELFPAY ==
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
[2025-01-30 09:21] VITALS: BP 142/82; PULSE 93; O2SAT 95; BMI 26.4
--- OUTSIDE RECORDS SUMMARY | 2025-01-30 09:39 | XMS_ITS ---
Author Organization [facility] Address [address] [place] [id number] Care Team Providers Care Bonding And Composite Fabricator Name Role Phone Verenice Park Primary Care Provider Nicholas Kee [phone] REASON FOR VISIT Reschedule Encounters Encounter Location Date Provider Diagnosis [address] [address] 12/22/2024 Nicholas Reilly Plan Of Treatment Next Appt Details Provider Name:Virginia knowles, 03/07/2025 03:00:00 PM, [address] [place] [address], [phone], Progress Notes * Sarthak NUNEZDOB: [birth year] (59 yo M)Acc No.[id number]:12/22/2024 Patient:?ENRIQUE Sarthak :1965???Age:59 Y???Sex:Male [facility] [place] [address] * true * Date:? Generated for Printi ng/Faxing/eTransmitting on:?01/30/2025 09:39 AM EDT
--- OUTSIDE RECORDS SUMMARY | 2025-01-30 09:39 | XMS_ITS ---
Author Organization [facility] Address [address] [place] [address] Care Team Providers Care Hide And Skin Processing Worker Name Role Phone Verenice Park Primary Care Provider Nicholas Kee Unavailable [phone] Virginia Borges Unavailable [phone] Allergies No Known Allergies REASON FOR VISIT [...] 12/22/2023 Encounters Encounter Location Date Provider Diagnosis [facility] [place] [address] [place] [address] 12/22/2023 Virginia Borges Type 2 diabetes mellitus [...] Up: 1 Year, Reason: Provider Name:Virginia knowles, 03/07/2025 03:00:00 PM, [address] [place] [address], [phone], Progress Notes * Sarthak NUNEZDOB: [birth year] (58 yo M)Acc No.[id number]:12/22/2023 Progress Notes Patient:?Enrique Sarthak Provider:?Virginia Borges DPM :1965???Age:58 Y???Sex:Male Ga e:12/22/2023 Address:[address] [place] [phone] Pcp:Verenice Park Subjective: * Chief Complaints: * [...] 6.5 * Examination: ???Ophthalmology Referral: ?DIABETES EYE EXAM?Diabetic Retinopathy Screening:?Yes ?Findings of Diabetic Eye Exam:?no retinopathy?Dermatologic: ?SURGICAL SITE?Incision edges are well aligned and [...] Provider:?Virginia Borges DPM Date:?04/2024 Generated for Nura fisher/Ella/Catherinesmitting on:?01/30/2025 09:38 AM EDT History and Physical Notes * HPI (History [...]
--- OUTSIDE RECORDS SUMMARY | 2025-01-30 09:39 | XMS_ITS ---
Author Organization [facility] Address [address] [place] [address] Care Team Providers Care Cyber Incident Responder Name Role Phone Verenice Park Primary Care Provider Nicholas Kee Unavailable [phone] Virginia Borges Unavailable [phone] Medications Medication SIG (Take, Route, Frequency, Duration) Notes Start Date End Date Status Ibuprofen 800 MG 1 tablet with food o r milk as needed Orally every 8 hrs for 7 days 11/26/2023 Active Lisinopril 40 MG 1 tablet Orally Once a day for 30 day(s) Active Simvastatin 40 MG 1 tablet in the even ing Orally Once a day for 30 day(s) Active Aspir-81 Not-Taking Percocet 5-325 MG 1 tablet as needed O rally every 4-6 hrs as needed for breakthrough pain for 3 days 11/26/2023 Active Latanoprost Active Tresiba Active metFORMIN HCl 500 MG 1 tablet with a bhaskar l Orally Once a day for 30 day(s) Active Gabapentin 300 MG 1 capsule Orally Onc e a day for 30 day(s) Active Encounters Encounter Location Date Provider [facility] [address] [place] [address] 12/23/2024 Virginia Borges Plan Of Treatment Next Appt Details Provider Name:Virginia knowles, 03/07/2025 03:00:00 PM, [address] [place], [address], Progress Notes * Sarthak NUNEZDOB: [birth year] (59 yo M)Acc No.[id number]:12/23/2024 Progress Note Patient:Sarthak CAAL Provider:?Virginia Borges DPM :1965???Age:59 Y???Sex:Male Ga e:12/23/2024 Address:[address] [place], [place] [id number] Pcp:Verenice Park Subjective: * Chief Complaints: * ??? * Medical History:?Anxiety, Ba ck,Hip,and Knee pain, Diabetic, High blood pressure, Numbness, Poor circulation, Chicken pox, Joint implants/screws, Glaucoma. * Medications:?Taking Simvasta tin 40 MG Tablet 1 tablet in the [...] breakthrough pain , Not-Taking/PRN Aspir-81 Objective: * Vitals:? Assessment: Plan: * Treatment: * Images: * The named appointment provid er may or may not be the originator of this progress note, and it is not deemed complete until electronically signed by the appointment provider. Sign off status: Pending * Provider:?Virginia Borges DPM Date:?05/2025 Generated for Nura fisher/Ella/eTmamadousmitting on:?01/30/2025 09:39 AM EDT
--- OUTSIDE RECORDS SUMMARY | 2025-01-30 09:39 | XMS_ITS | Patient Health Record ---
Author Organization [facility] Address [address] [place] [address] Care Team Providers Care Event Attendant Name Role Phone Xavier Staceyfelipa Primary Care Provider Nicholas Kee Unavailable [phone] Virginia Borges Unavailable [phone] Allergies No Known Allergies Reason For Referral No Information Medications Medication SIG (Take, Route, Frequency, Duration) Notes Start Date End Date Status Latanoprost Active Ibuprofen 800 MG 1 tablet with food o r milk as needed Orally every 8 hrs for 7 days 11/26/2023 Active Tresiba Active metFORMIN HCl 500 MG 1 tablet with a bhaskar l Orally Once a day for 30 day(s) Active Lisinopril 40 MG 1 tablet Orally Once a day for 30 day(s) Active Gabapentin 300 MG 1 capsule Orally Onc e a day for 30 day(s) Active Simvastatin 40 MG 1 tablet in the even ing Orally Once a day for 30 day(s) Active Aspir-81 Not-Taking Percocet 5-325 MG 1 tablet as needed O rally every 4-6 hrs as needed for breakthrough pain for 3 days 11/26/2023 Active Immunizations Vaccine Route Administration Date Status [...] Polyneuropathy due to type 2 diabetes mellitus ([id number]) Type 2 diabetes mellitus with diabetic polyneuropathy (E11.42) Active confirmed Problem Acquired hammer toe of right foot ([id number] ) Other hammer toe(s) (acquired), right foot (M20.41) Active confirmed Encounters Encounter Location Date Provider Diagnosis [facility] [place] [address] [place] [address] 12/22/2024 Nicholas Reilly Plan Of Treatment Pending Test Test Name Order Date X ray : Foot, right 3V 05/22/2023 X ray : Foot, right 3V 11/06/2023 X ray : Foot, right 3V 12/01/2023 [id number] SKIN LESIONS, 2 TO 4 05/22/20 23 Next Appt Details Provider Name:Virginia knowles, 03/07/2025 03:00:00 PM, [address] [facility] [place], [address], Insurance Providers Payer Name Payer Address Payer Phone Subscriber Number Group Number Insured Name Patient Relationship to Insured Coverage Start Date Coverage End Date [facility] [address] [address] [place] [address] [id number] Kristi Nunez Spouse - patient is the spouse of the insured Medical (General) History Medical History History ICD Code Anxiety Back,Hip,and Knee pain Diabetic High blood pressure Numbness Poor circulation Chicken pox Joint implants/screws Glaucoma Surgical History Surgery Date(Month/Year) spinal fusion titanium plates HT R 4,5 DIAB P/B 11/25/23
--- OUTSIDE RECORDS SUMMARY | 2025-01-30 09:39 | XMS_ITS | Clinical Summary ---
Author Organization [facility] Address [address] [place] [address] Care Team Providers Care Flooring Machine Operator Name Role Phone Verenice Park MD Primary Care Provider [phone] Surgical History Surgery Date Site/Laterality Comments NECK SURGERY 03/31/2019 PROCEDURE: HISTORICAL NECK SURGERY; COMMENT: C5-6 C6-7 acdf NECK SURGERY 12/2017 PROCEDURE: HISTORICAL NECK SURGERY; COMMENT: C5-6 C6-7 right foraminotomy Medical History Medical History Date Comments Diabetes mellitus type 2, co ntrolled, with complications (CMS/HCC) DX:Diabetes mellitus type 2, controlled, with complications (HCC) Essential hypertension DX:Essent ial hypertension Social History Tobacco Use Types Packs/Day Years Used Date Smoking Tobacco: Every Day Cigarettes Smokeless Tobacco: Never Sex and Gender Information Value Date Recorded Sex Assigned at Not on file Legal Sex Male 8:17 AM EST Gender Identity Not on file Sexual Orientation Not on file Obstetrics History Last Filed Vital Signs Vital Sign Reading Time Taken Comments Blood Pressure - - Pulse - - Temperature - - Respiratory Rate - - Oxygen Saturation - - Inhaled Oxygen Concentration - - Weight 81.2 kg (179 lb) 01/09/2023 2:49 PM EST Height 175.3 cm (5' 9 ) 01/09/2023 2:49 PM EST Body Mass Index 26.43 01/09/2023 2:49 PM EST Plan of Treatment Health Maintenance Due Date Last Done Comments DTaP,Tdap,and Td Vaccines (1 - Tdap) 1986 Hepatitis B Vaccines (1 of 3 - 19+ 3-dose series) 1986 Pneumococcal Vaccine: 50+ Ye ars (1 of 2 - PCV) 1986 Pneumococcal Vaccine: Pediat rics (0 to 5 Years) and At-Risk Patients (6 to 64 Years) (1 of 2 - PCV) 1986 Zoster Vaccines (1 of 2) 2017 Cholesterol Screening (Lipid Panel) 10/19/2022 Colorectal Cancer Screening: Colonoscopy 10/19/2022 Depression Screening 10/19/2022 HIV Screening 10/19/2022 Hepatitis C Screening 10/19/2022 Social Influencers of Health Screening 10/19/2022 COVID-19 Vaccine (1 - 2023-2 5 season) 2024 Influenza Vaccine (#1) 2024 HIB Vaccines Aged Out No longer eligi ble based on patient's age to complete this topic HPV Vaccines Aged Out No longer eligi ble based on patient's age to complete this topic Hepatitis A Vaccines Aged Out No long er eligible based on patient's age to complete this topic IPV Vaccines Aged Out No longer eligi ble based on patient's age to complete this topic MMR Vaccines Aged Out No longer eligi ble based on patient's age to complete this topic Meningococcal ACWY Vaccine Aged Out N o longer eligible based on patient's age to complete this topic Meningococcal B Vacine Aged Out No lo nger eligible based on patient's age to complete this topic RSV Immunization Patients Un mohit 20 months Aged Out No longer eligible b ased on patient's age to complete this topic Varicella Vaccines Aged Out No longer eligible based on patient's age to complete this topic Advance Directives Documents on File Type Date Recorded Patient Surgical Assistant Certified Expl anation Health Care Decision (hx) 12/24/2017 AD LIANG DIRECTIVE Health Care Decision (hx) 12/24/2017 AD LIANG DIRECTIVE Health Care Decision (hx) 12/24/2017 AD LIANG DIRECTIVE Health Care Decision (hx) 12/24/2017 AD LIANG DIRECTIVE Care Teams Flooring Machine Operator Relationship Specialty Start Date End Date Verenice Park MD [address] [place] [address] [address] [facility] [place] [address] PCP - General Internal Medicine 11/12/17
== END 2025-01-30 10:06 | disposition home or self-care (01) ==
LOC: HO.HMCH 09:05
PROVIDERS: PCP Internal Medicine; Visit Provider Internal Medicine
DX: E11.65 Type 2 diabetes mellitus with hyperglycemia (principal); Z79.4 Long term (current) use of insulin; R91.1 Solitary pulmonary nodule; I10 Essential (primary) hypertension; E78.00 Pure hypercholesterolemia, unspecified; F17.210 Nicotine dependence, cigarettes, uncomplicated; K76.0 Fatty (change of) liver, not elsewhere classified; F41.1 Generalized anxiety disorder; Z13.9 Encounter for screening, unspecified

== ENCOUNTER → 2025-01-30 09:05 | Outpatient (BNVA) | payer OTHER, SELFPAY | PROVIDERS: PCP Internal Medicine; Visit Provider Internal Medicine | DX: E11.65 Type 2 diabetes mellitus with hyperglycemia (principal); R91.1 Solitary pulmonary nodule; I10 Essential (primary) hypertension; E78.00 Pure hypercholesterolemia, unspecified; K76.0 Fatty (change of) liver, not elsewhere classified; F41.1 Generalized anxiety disorder; F17.210 Nicotine dependence, cigarettes, uncomplicated; Z79.4 Long term (current) use of insulin; Z79.899 Other long term (current) drug therapy | CPT/HCPCS: 83036; 96127 ==

== ENCOUNTER 2025-02-01 16:00 | Outpatient (REF) | payer OTHER, SELFPAY ==
--- NOTE | ~2025-02-01 | CT_ITS ---
CLINICAL HISTORY: F17.210 - Nicotine dependence, cigarettes, uncomplicated CT lung cancer screening (LDCT) Comparison: 12/22/2023 Technique: Axial CT images of the chest using low-dose technique. Referring provider counseled the patient on shared decision-making for LDCT screening. Additional counseling was provided on smoking cessation. Effective radiation dose total: DLP 69.6 mGycm, CTDIvol 2.2 mGy. Findings: Lung: No solid or semi solid pulmonary lesions Coronary artery calcifications: Mild Limited upper abdomen: Unremarkable Other: None Impression: Category 1: Normal; continue annual screening Category 1: Normal; continue annual screening Category 2: Benign appearance or behavior, continue annual screening Category 3: Probably benign, [address] recommended Category 4A: Suspicious, [address] recommended; may consider PET/CT Category 4B: Suspicious, Additional diagnostics and/or tissue sampling recommended Category 4X: Suspicious, Additional diagnostics and/or tissue sampling recommended Category 0: Recalls (incomplete screen due to Incomplete coverage, Noise, Respiratory motion, Expiration, Obscured by acute abnormality) This document has been electronically signed by: Sarthak Ruiz MD on 02/03/2025 08:24:36
--- OUTSIDE RECORDS SUMMARY | 2025-02-01 17:44 | XMS_ITS ---
Author Organization [facility] Lyle [facility]antes [facility] Address [address] [place] [address] Care Team Providers Care Emotional Support Teacher Name Role Phone Verenice Park Primary Care Provider Nicholas Kee Unavailable [phone] [place] Borges Unavailable [phone] Allergies No Known Allergies REASON FOR VISIT [...] 12/22/2023 Encounters Encounter Location Date Provider Diagnosis [facility] [place] [address] [place] [address] 12/22/2023 [place] Borges Type 2 diabetes mellitus [...] Follow Up: 1 Year, Reason: Provider Name:[place] nkowles, 03/07/2025 03:00:00 PM, [address] [place] [address], [phone], Progress Notes * Sarthak NUNEZDOB: 7 (58 yo M)Acc No.[id number]:12/22/2023 Progress Notes Patient:?Enrique Sarthak Provider:?Vigrinia Borgse DPM :1965???Age:58 Y???Sex:Male Ga e:12/22/2023 Address:[address] [place] [id number] Pcp:Verenice Park Subjective: * Chief Complaints: * [...] Borges DPM Date:?04/2024 Generated for Nura fisher/Ella/Catherinesmitting on:?02/01/2025 05:43 PM EDT History and Physical Notes * HPI [...]
--- OUTSIDE RECORDS SUMMARY | 2025-02-01 17:44 | XMS_ITS ---
Author Organization [facility] Address [address] [place] [address] Care Team Providers Care Policy Value Calculator Name Role Phone Verenice Park Primary Care Provider Nicholas Kee Unavailable [phone] [place] Borges Unavailable [phone] Medications Medication SIG (Take, Route, Frequency, Duration) [...] Active Encounters Encounter Location Date Provider [facility] [address] [place] [address] 12/23/2024 [place] Borges Plan Of Treatment Next Appt Details Provider Name:[place] knowles, 03/07/2025 03:00:00 PM, [address] [place], [address], Progress Notes * Sarthak NUNEZDOB: [birth year] (59 yo M)Acc No.[id number]:12/23/2024 Progress Note Patient:Sarthak CAAL Provider:?[place] Borges DPM :1965???Age:59 Y???Sex:Male Ga e:12/23/2024 Address:[address] [place], [place] [address] Pcp:Verenice Park Subjective: * Chief Complaints: * [...] Borges DPM Date:?05/2025 Generated for Nura fisher/Ella/eTmamadousmitting on:?02/01/2025 05:43 PM EDT
--- OUTSIDE RECORDS SUMMARY | 2025-02-01 17:44 | XMS_ITS | Clinical Summary ---
Author Organization [facility] Address [address] [place] [address] Care Team Providers Care Geochemical Laboratory Technician Name Role Phone Verenice Park MD Primary Care Provider [phone] Surgical History Surgery Date Site/Laterality Comments NECK [...] Documents on File Type Date Recorded Patient Group Fitness Department Head Expl anation Health Care Decision (hx) 12/24/2017 AD LIANG DIRECTIVE Health Care Decision (hx) 12/24/2017 AD LIANG DIRECTIVE Health Care Decision (hx) 12/24/2017 AD LIANG DIRECTIVE Health Care Decision (hx) 12/24/2017 AD LIANG DIRECTIVE Care Teams Geochemical Laboratory Technician Relationship Specialty Start Date End Date Verenice Park MD [address] [place] [address] [address] [facility] [place] [address] PCP - General Internal Medicine 11/12/17
--- OUTSIDE RECORDS SUMMARY | 2025-02-01 17:44 | XMS_ITS | Patient Health Record ---
Author Organization [facility] Lyle [facility] Address [address] [facility] [place] [address] Care Team Providers Care Trial Consultant Name Role Phone Xavier Staceyfelipa Primary Care Provider Nicholas Kee Unavailable [phone] [place] Broges Unavailable [phone] Allergies No Known Allergies Reason For Referral [...] Polyneuropathy due to type 2 diabetes mellitus (696167850) Type 2 diabetes mellitus with diabetic polyneuropathy (E11.42) Active confirmed Problem Acquired hammer toe of right foot (4558006363679259 ) Other hammer toe(s) (acquired), right foot (M20.41) Active confirmed Encounters Encounter Location Date Provider Diagnosis [facility] [place] [address] [place] [address] 12/22/2024 Nicholas Reilly Plan Of Treatment Pending Test Test Name Order Date X ray : Foot, right 3V 05/22/2023 X ray : Foot, right 3V 11/06/2023 X ray : Foot, right 3V 12/01/2023 [id number] SKIN LESIONS, 2 TO 4 05/22/20 23 Next Appt Details Provider Name:[place] knowles, 03/07/2025 03:00:00 PM, [address] [facility], [place], [address], Insurance Providers Payer Name Payer Address Payer Phone Subscriber Number Group Number Insured Name Patient Relationship to Insured Coverage Start Date Coverage End Date [facility] [address] [address] [place] [address] [phone] [id number] Kristi Nunez Spouse - patient is the spouse of the insured Medical (General) History Medical History History ICD Code Anxiety Back,Hip,and Knee pain Diabetic High blood pressure Numbness Poor circulation Chicken pox Joint implants/screws Glaucoma Surgical History Surgery Date(Month/Year) spinal fusion titanium plates HT R 4,5 DIAB P/B 11/25/23
--- OUTSIDE RECORDS SUMMARY | 2025-02-01 17:44 | XMS_ITS ---
Author Organization [facility] Address [address] [place] [address] Care Team Providers Care Cream Dipper Name Role Phone Verenice Park Primary Care Provider Nicholas Kee [phone] REASON FOR VISIT Reschedule Encounters Encounter Location Date Provider Diagnosis [address] [address] 12/22/2024 Nicholas Reilly Plan Of Treatment Next Appt Details Provider Name:[place] knowles, 03/07/2025 03:00:00 PM, [address] [place] [address], [address], Progress Notes * Sarthak NUNEZDOB: [birth year] (59 yo M)Acc No.[id number]:12/22/2024 Patient:?ENRIQUE Sarthak :1965???Age:59 Y???Sex:Male Address:[address] [place] [address] [address] [place] [address] * true * Date:? Generated for Printi ng/Faxing/eTransmitting on:?02/01/2025 05:44 PM EDT
== END 2025-02-01 16:01 | disposition home or self-care (01) ==
LOC: HO.CT 16:00
PROVIDERS: PCP Internal Medicine; Visit Provider Physician Assistant Medical
DX: Z12.2 Encounter for screening for malignant neoplasm of respiratory organs (principal); F17.210 Nicotine dependence, cigarettes, uncomplicated
CPT/HCPCS: 71271

== ENCOUNTER → 2025-02-01 16:02 | Outpatient (BNV) | payer OTHER, SELFPAY | PROVIDERS: PCP Internal Medicine; Visit Provider Specialist | DX: F17.210 Nicotine dependence, cigarettes, uncomplicated (principal) | CPT/HCPCS: 71271 ==

== ENCOUNTER 2025-02-11 15:46 | Emergency (ER) | payer OTHER, SELFPAY ==
--- NOTE | ~2025-02-11 | CT_ITS ---
CLINICAL HISTORY: diffuse abd pain, bloating CT abdomen and pelvis without contrast Comparison: None Findings: Examination is limited by without contrast. Lung bases are clear. No pleural effusion. Liver, Pancreas, Spleen and both adrenals show normal size, shape and attenuation on present unenhanced scan. No CBD dilatation. No calcified gallstone in the gallbladder. Both kidneys reveal normal in size, shape, position and attenuation. No kidney stone. No hydronephrosis. The IVC, aorta and portal vein are within normal position and caliber. Atherosclerosis calcification of the aorta. No evidence of retroperitoneal lymphadenopathy or ascites. Colonic diverticulosis with mild bowel wall thickening of the sigmoid colon. Appendix appears normal. Urinary bladder reveals normal lumen and marquis. The pelvic organs are unremarkable. Visualized osseous structures appear unremarkable. No lytic or sclerotic bony lesion. IMPRESSION: Colonic diverticulosis with mild bowel wall thickening of the sigmoid colon. Mild acute diverticulitis can not be excluded. Correlation with colonoscopy findings as indicated This document has been electronically signed by: Thaddeus Moser MD on 02/11/2025 19:32:11
--- NOTE | ~2025-02-11 | XR_ITS ---
CLINICAL HISTORY: weakness 2 view chest x-ray Comparison: CT/SR - CT LUNG SCREENING - 02/01/25 16:25 EDT Findings: No consolidation or effusion. Normal size heart. No acute fracture. IMPRESSION: 1. No acute findings. This document has been electronically signed by: Thaddeus Moser MD on 02/11/2025 16:25:32
--- NOTE | 2025-02-11 15:52 | ED_ITS ---
HPI - General Adult General Chief complaint: General Medical Stated complaint: abd,back pain ,dizziness Time Seen by Provider: 02/11/25 16:09 Source: patient and family () Mode of arrival: ambulatory Limitations: no limitations History of Present Illness ED Provider: KELSEY RAZA PA-C HPI narrative: 59 year old male with pmhx signifiacnt for T2DM, HTN, HLD, anemia, hepatic steatosis, TARYN presents to the ED today for evaluation of diffuse abdominal pain x days. Pain is diffuse, sometime worse on the right, sometimes worse on the left. Describes it as a cramping sensation with occasional sharp pain. Reports associated nausea without vomiting. Reports normal BMs. Last BM today. Denies fever, chills, flank pain, constipation, diarrhea, dysuria, hematuria. Denies hx of etoh abuse. Also endorses acute on chronic back pain. Pain localized to mid-right lower back. States he has been working out in the yard recently and is unsure if this worsened his pain. Denies bowel or bladder incontinence or retention, saddle anesthesia, numbness/tingling/weakness of the lower extremities. Denies blunt trauma or injury. Admits to history of cervical spine surgery. Denies hx IVDU. Related Data Home Medications ?Medication ?Instructions ?Recorded ?Confirmed travoprost 0.004 % eye drops 1 drp ophthalmic (eye) QPM 09/28/20 01/30/25 (Travatan Z) latanoprost 0.005 % eye drops 1 drp ophthalmic (eye) BEDTIME 01/28/23 01/30/25 Previous Rx's ?Medication ?Instructions ?Recorded pen needle, diabetic 33 gauge x #100 ea 06/02/22 5/32 (Comfort EZ Pen [place]) glucagon 3 mg/actuation nasal 3 mg intranasal ONCE #2 ea 03/03/23 spray (Baqsimi) blood-glucose sensor (FreeStyle #6 ea 02/19/24 Roberto 3 Sensor device) insulin degludec 100 unit/mL (3 32 unit (0.32 mL) subcut DAILY #15 04/04/24 mL) subcutaneous pen (Tresiba mL FlexTouch U-100 insulin) gabapentin 300 mg capsule 300 mg PO TID 90 days #270 caps 05/10/24 lisinopril 30 mg tablet 30 mg PO DAILY 90 days #90 tabs 06/10/24 hydrochlorothiazide 25 mg tablet 25 mg PO QAM #90 tabs 08/10/24 ibuprofen 800 mg tablet 800 mg PO Q8H #30 tabs 10/01/24 metformin 500 mg tablet 1,000 mg (2 x 500 mg) PO BID #360 10/01/24 tabs pen needle, diabetic 32 gauge x #400 ea 01/18/25 (BD Rowena 2nd Gen Pen Needle) simvastatin 40 mg tablet 40 mg PO QPM 90 days #90 tabs 02/08/25 amoxicillin 875 mg-potassium 1 tab PO Q12H 7 days #14 tabs 02/11/25 clavulanate 125 mg tablet cyclobenzaprine 5 mg tablet 5 mg PO Q8H PRN muscle spasm #7 02/11/25 tabs lidocaine 5 % topical patch 1 patch topical DAILY #15 ea 02/11/25 (Lidoderm) ondansetron 4 mg disintegrating 4 mg PO DAILY PRN nausea and 02/11/25 tablet vomiting 5 days #10 tabs Allergies Allergy/AdvReac Type Severity Reaction Status Date / Time dulaglutide [From [facility]] AdvReac Intermediate Diarrhea Verified 02/11/25 15:57 Review of Systems 2 Review of Systems: Constitutional: No fever, chills, fatigue, night sweats, weight changes ENT/Mouth: No ear pain, hearing loss, nasal congestion, sinus pain, rhinorrhea, sore throat Eyes: No eye pain, swelling, redness, vision changes, discharge Cardio: No chest pain, palpitations, SORENSEN, orthopnea, peripheral edema Pulm: No SOB, cough, sputum, wheezing, dyspnea, hemoptysis GI: No nausea, vomiting, hematemesis, abdominal pain, diarrhea, constipation, hematochezia, melena, +abdominal pain : No irregular bleeding, dysuria, frequency, urgency, hesitancy, hematuria, flank pain, urinary flow changes, urinary incontinence or retention MSK: No neck pain, joint pain, myalgias, +back pain Skin: No lesions, rashes Neuro: No weakness, numbness, paresthesias, LOC, dizziness, headache Psych: No anxiety/panic, depression, SI/HI, AH/VH All other systems reviewed and are negative. FORMERLY [facility], 1928–1983 Past Medical History Attestation statement: The following information was validated with the patient. Source: old records reviewed and nursing notes reviewed Medical History Type 2 diabetes mellitus with hyperglycemia (~1999) Colon cancer screening Nicotine dependence, cigarettes, uncomplicated Generalized anxiety disorder Glaucoma Thoracic radiculopathy due to degenerative joint disease of spine Anxiety Hepatitis C antibody positive in blood Hepatitis B Hypercholesterolemia Hypertension Surgical History History of cervical spinal surgery History of fusion of cervical spine Family History Family History Father Hypertension Mother Hypertension Maternal Uncle Pancreatic cancer Sister Substance abuse Brother Substance abuse Bladder cancer Social History Social History Household Members: Spouse Household Members Other:: Housing: House Alcohol intake: never Patient Tobacco Use Status: Current everyday Tobacco user Tobacco use type: Cigarette Cigarette Packs Per Day: 1 Years Smoked: (onset 12yo, 1ppd x 45yrs, 40+PYH) e-Cigarette/Vaping Use: Never Used Second Hand Smoke Exposure: No Advance Directives: No Advance Directives Information Provided: No service: No Current occupational status: unemployed Cognitive needs: No Hearing needs: No Vision needs: Yes Physical Exam ED Vital Signs: Vital Signs - 24 hr 02/11/25 15:53 Temperature 98.2 F Pulse Rate 94 Respiratory Rate 16 Blood Pressure 134/82 Pulse Oximetry 97 Oxygen Delivery Method Room Air BMI result Body Mass Index 25.6 Vital signs stable, afebrile General: Well appearing, in no acute distress. Skin: Warm, dry, intact. No rashes or lesions. Head: Normocephalic, atraumatic. EENT: Hearing is intact b/l. Conjunctiva clear. PERRLA. EOM intact. Moist mucous membranes.? Neck: Supple without LAD Cardiac: Chest wall symmetric. RRR Lungs: Normal respiratory effort without accessory muscle use. CTA bilaterally. Abdomen: soft but distended. Diffusely mildly tender without rebound or guarding. Active bowel sounds throughout. No CVAT. Back: No midline spinous tenderness or step-off deformity. There is palpable tenderness over right lumbar paraspinal musculature without fluctuance, mass or spasm. Ext: Upper and lower extremities atraumatic, without tenderness, deformity, swelling or erythema Neuro: AOx3. Normal speech. Strength 5/5 intact throughout. No saddle anesthesia. Sensation intact to light touch. NV intact distally. Ambulating with steady gait. Psych: Appropriate mood and affect. Responds appropriately to questions. Course Course Course Narrative: Medical screening exam performed. Please refer to detailed history, exam, evaluation, and management by primary provider. 59-year-old male history of diabetes, hypertension, worsening abdominal pain along with acute on chronic low back pain. Saw PCP recently. Labs ordered. Reevaluation(s) Reevaluation #1: 1907 -- CBC without leukocytosis or left shift. normocytic anemia, h&h around baseline and above transfusion threshold. sodium 132. no acute electrolyte abnormalities requiring intervention. random glucose 263. no esau. liver function at baseline. lipase wnl. urine without infection. chest xray without infiltrate or consolidation. ekg showing nsr, rate of 82 bpm, no acute ischemic changes or st elevations. ct pending. > toradol given for pain control. zorfan given for nausea. 1955 -- CT abdomen/pelvis showing colonic diverticulosis with mild bowel wall thickening of the sigmoid colon > discussed results with patient. tolerating water and sandwich in ED. Will treat for diverticulitis. Augmentin sent to pharmacy, 1st dose given in the ED today. Zofran sent for nausea. Regarding back pain, likely musculoskeletal in etiology. No osseous abnormality on CT scan. Will send Flexeril to trial and lidocaine patches. Patient has remained stable throughout ED visit today. Discussed worrisome signs and symptoms and when to return to the ED. All questions answered at this time. Patient is agreeable with disposition and stable for discharge. Medications Administered Discontinued Medications Generic Name Dose Route Start Last Admin Trade Name Freq PRN Reason Stop Dose Admin Ketorolac Tromethamine 30 mg 02/11/25 17:18 02/11/25 17:23 Ketorolac Tromethamine 30 Mg/Ml Vial IVPUSH 02/11/25 17:19 30 mg ONCE ONE Administration Ondansetron HCl 4 mg 02/11/25 17:19 02/11/25 17:24 Ondansetron Hcl 4 Mg/2 Ml Vial IVPUSH 02/11/25 17:20 4 mg ONCE ONE Administration Medical Decision Making Medical Decision Making MDM Narrative: 59 year old male with pmhx signifiacnt for T2DM, HTN, HLD, anemia, hepatic steatosis, TARYN presents to the ED today for evaluation of diffuse abdominal pain x days. Vital signs stable. Afebrile. He is nontoxic appearing in no acute distress. Resume midline spinous tenderness deformity. There is reproducible tenderness to palpation of the right lumbar paraspinal region without palpable mass or fluctuance. Abdomen is soft, distended, mildly tender to palpation diffusely without rebound or guarding. Active bowel sounds x4. No CVAT bilaterally. Differential diagnoses: appendicitis, diverticulitis, diverticulosis, UTI, constipation, bowel obstruction Abdominal exam without peritoneal signs. No evidence of acute abdomen at this time. Low suspicion for acute hepatobiliary disease (including acute cholecystitis), acute infectious processes (pneumonia, hepatitis, pyelonephritis, PID, TOA), vascular catastrophe, bowel obstruction or viscus perforation, testicular torsion, orchitis, epidydymitis. Presentation not consistent with other acute, emergent causes of abdominal pain at this time. Concern for msk sprain/strain, muscle spasm, arthritis. lower suspicion for fracture, subluxation. unlikely equina, Guillain-[place], epidural abscess, cord compression. Plan for labs, UA, ct scan, pain control, and re-evaluation. Differential Diagnosis Differential Diagnoses: The differential diagnosis associated with the presentation includes as above. Admission/Observation not indicated. Lab Data MDM Lab Attestation statement: I reviewed the patient's lab results. as above. 02/11/25 16:16 02/11/25 16:16 Labs: Lab Results 02/11/25 02/11/25 Range/Units 16:16 17:31 WBC 10.8 (4.8-10.8) X10*3/uL RBC 4.46 L (4.60-5.80) X10*6/uL Hgb 13.4 L (14.0-18.0) g/dl Hct 37.4 L (42.0-52.0) % MCV 83.9 (80.0-98.0) fL MCH 30.0 (27.0-33.0) pg MCHC 35.8 (31.0-36.0) g/dl RDW 12.8 (11.0-16.0) % Plt Count 213 (160-400) X10*3/uL MPV 10.7 (9.4-12.4) fL Immature Gran % (Auto) 0.4 (0.0-0.4) % Neut % (Auto) 61.1 (45-73) % Lymph % (Auto) 26.9 (20-40) % [place] % (Auto) 8.6 (2-11) % Eos % (Auto) 2.4 (0-4) % Baso % (Auto) 0.6 (0-2) % Lymph # (Auto) 2.9 (1.2-4.9) X10*3/uL [place] # (Auto) 0.9 (0.1-1.2) X10*3/uL Eos # (Auto) 0.3 (0.0-0.4) X10*3/uL Baso # (Auto) 0.1 (0.0-0.2) X10*3/uL Abs Immat Gran (auto) 0.04 H (0.00-0.03) X10*3/uL Absolute Neuts (auto) 6.6 (2.0-8.3) x10*3/uL Absolute Nucleated RBC 0.000 (0.0-0.012) X10*3/uL Nucleated RBC % (auto) 0.0 (0.0-0.2) /100WBC Sodium 132 L (135-145) mmol/L Potassium 3.9 (3.3-5.1) mmol/L Chloride 99 (96-108) mmol/L Carbon Dioxide 23 (22-29) mmol/L Anion Gap 14 (12-20) BUN 13 (9-16) mg/dL Creatinine 0.87 (0.5-1.4) mg/dL Estim Creat Clear Calc 102.8 Estimated GFR > 60 Random Glucose 263 H (60-115) mg/dL Calcium 9.1 D (8.4-10.2) mg/dL Total Bilirubin 0.2 (0.0-1.0) mg/dL AST 21 (5-37) U/L ALT 24 (0-40) U/L Alkaline Phosphatase 49 (39-117) U/L Total Protein 7.2 (6.5-8.0) g/dL Albumin 4.3 (3.5-5.0) g/dL Lipase 39 (8-78) U/L Urine Color Yellow Urine Appearance Clear Urine pH 5.5 (5.0-9.0) Ur Specific [place] 1.025 (1.005-1.025) Urine Protein Negative (Neg-Trace) mg/dL Urine Glucose (UA) >=1000 H (Negative) mg/dL Urine Ketones Negative (Negative) mg/dL Urine Blood Negative (Negative) Urine Nitrite Negative (Negative) Ur Leukocyte Esterase Negative (Negative) Urine RBC 0-2 (0-2) /HPF Urine WBC 0-5 (0-5) /HPF Ur Squamous Epith Cells 0-2 (0-2) /HPF Urine Bacteria None Seen (None Seen) Hyaline Casts 0-2 (0-2) /LPF Independent Interpretation I performed an independent interpretation of an: EKG, Plain X-Ray and CT Scan Interpretation: chest xray without infiltrate or consolidation ekg showing nsr, rate of 82 bpm, no acute ischemic changes or st elevations. ct a/p without bowel obstruction Radiology Impression Discussion of test interpretation with radiology: I have reviewed the radiologist's reading. Radiologist Impression: Procedure(s): XR chest 2V Accession Number(s): [id number] cc: Verenice Park MD; Naga Loco~ CLINICAL HISTORY: weakness 2 view chest x-ray Comparison: CT/SR - CT LUNG SCREENING - 02/01/25 16:25 EDT Findings: No consolidation or effusion. Normal size heart. No acute fracture. IMPRESSION: 1. No acute findings. This document has been electronically sign Procedure(s): CT abdomen pelvis wo IV con Accession Number(s): [id number] cc: Verenice Park MD; Kelsey Raza~ Report Number: [id number]: Total DLP = 543.00 mGy-cm CLINICAL HISTORY: diffuse abd pain, bloating CT abdomen and pelvis without contrast Comparison: None Findings: Examination is limited by without contrast. Lung bases are clear. No pleural effusion. Liver, Pancreas, Spleen and both adrenals show normal size, shape and attenuation on present unenhanced scan. No CBD dilatation. No calcified gallstone in the gallbladder. Both kidneys reveal normal in size, shape, position and attenuation. No kidney stone. No hydronephrosis. The IVC, aorta and portal vein are within normal position and caliber. Atherosclerosis calcification of the aorta. No evidence of retroperitoneal lymphadenopathy or ascites. Colonic diverticulosis with mild bowel wall thickening of the sigmoid colon. Appendix appears normal. Urinary bladder reveals normal lumen and marquis. The pelvic organs are unremarkable. Visualized osseous structures appear unremarkable. No lytic or sclerotic bony lesion. IMPRESSION: Colonic diverticulosis with mild bowel wall thickening of the sigmoid colon. Mild acute diverticulitis can not be excluded. Correlation with colonoscopy findings as indicated This document has been electronically signed by: Thaddeus Moser MD on 02/11/2025 19:32:11 Independent Historian Clinical information obtained from an independent historian. History obtained from or confirmed by: Spouse () External Record Review External record reviewed: Inpatient record Prescription Management I considered prescription management with: Antibiotic (augmentin) and Other (zofran, flexeril, lido patch) Chronic Conditions Patient?s care impacted by: Diabetes Social Determinants Patient?s care significantly limited by Social Determinants of Health including: Other Social Determinant of Health Critical Care Time Critical Care Time Critical Care Time: No Discharge Plan Discharge Clinical Impression: Diverticulitis, Lumbar back pain Patient Disposition: Home, Self-Care Instructions: Diverticulitis (ED), Diverticulitis Diet (ED) Additional Instructions: Your blood work today is reassuring. Your urine is negative for infection. As discussed, the CT scan of your abdomen shows findings concerning for diverticulitis. See home care instructions. Treatment for this is with antibiotics. Augmentin has been sent to your pharmacy for treatment. You received your 1st dose in the ED today. Take your next dose tomorrow. Zofran has been sent to your pharmacy for you to take as needed for nausea/ vomiting. Stick to a liquid/ soft diet over the next few days and slowly advance to solid foods. Regarding your back pain, avoid bending, lifting, or twisting. Use ice several times per day for 20 minutes at a time for the next 48 hours and then change to heat. I recommend you take 600mg ibuprofen every 6 hours or tylenol 650mg every 6 hours as needed for pain. If needed, you can alternate these medications so that you take one medication every 3 hours. For example, at noon take ibuprofen, then at 3pm take tylenol, then at 6pm take ibuprofen. Flexeril is a muscle relaxer. Take this at night as it makes you drowsy. Do not drive, drink alcohol, or operate machinery while taking it. Lidoderm patches are numbing patches. Apply to painful areas. Please schedule an appointment for follow-up with your primary care provider this week for further evaluation of your symptoms. You will likely require a colonoscopy. Return to the Emergency Department if you experience worsening back pain, difficulty walking, fevers, numbness, tingling, incontinence, or any other concerning symptoms. In the case of an emergency call 911. Prescriptions: New lidocaine [Lidoderm] 5 % adhesive patch,medicated 1 patch topical DAILY Qty: 15 0RF Rx Instructions: leave on most painful area for up to 12 hrs ondansetron 4 mg tablet,disintegrating 4 mg PO DAILY PRN (Reason: nausea and vomiting) 5 Days Qty: 10 0RF amoxicillin-pot clavulanate 875-125 mg tablet 1 tab PO Q12H 7 Days Qty: 14 0RF cyclobenzaprine 5 mg tablet 5 mg PO Q8H PRN (Reason: muscle spasm) Qty: 7 0RF No Action (DME) FreeStEmbarke Roberto 3 Sensor Device See Rx Instructions .ROUTE .COMPLEX Qty: 6 3RF Dose Instruction: DIRECTED Rx Instructions: DIRECTED Tresiba FlexTouch U-100 100 unit/mL (3 mL) insulin pen 32 unit subcut DAILY Qty: 15 12RF gabapentin 300 mg capsule 300 mg PO TID 90 Days Qty: 270 2RF hydrochlorothiazide 25 mg tablet 25 mg PO QAM Qty: 90 8RF metformin 500 mg tablet 1,000 mg PO BID Qty: 360 17RF ibuprofen 800 mg tablet 800 mg PO Q8H Qty: 30 1RF (DME) pen needle, diabetic [BD Rowena 2nd Gen Pen Needle] 32 gauge x 5/32 needle See Rx Instructions .Route Qty: 400 1RF Rx Instructions: As directed once a day simvastatin 40 mg tablet 40 mg PO QPM 90 Days Qty: 90 11RF travoprost [Travatan Z] 0.004 % drops 1 drp ophthalmic (eye) QPM (DME) pen needle, diabetic [Comfort EZ Pen [place]] 33 gauge x 5/32 needle See Rx Instructions .Route Qty: 100 3RF Rx Instructions: As directed lisinopril 30 mg tablet 30 mg PO DAILY 90 Days Qty: 90 3RF Baqsimi 3 mg/actuation spray,non-aerosol 3 mg intranasal ONCE Qty: 2 5RF latanoprost 0.005 % drops 1 drp ophthalmic (eye) BEDTIME Referrals: Verenice Park MD [Primary Care Provider] - Stand Alone Forms: Work/School Release Print Language: Chinese
[2025-02-11 15:53] VITALS: BP 134/82; PULSE 94; RESP 16; TEMP 36.8; O2SAT 97; BMI 25.6
--- NOTE | 2025-02-11 15:57 | ECG_ITS ---
Test Reason : BACK PAIN Blood Pressure : */* mmHG Vent. Rate : 82 BPM Atrial Rate : 82 BPM P-R Int : 170 ms QRS Dur : 82 ms QT Int : 356 ms P-R-T Axes : 68 -25 71 degrees QTcB Int : 415 ms Normal sinus rhythm Normal ECG When compared with ECG of 23-Nov-2023 11:06, No significant change was found Referred By: Naga Loco Electronically Signed By: LAKESHA CHRISTINE MD
[2025-02-11 16:27] LABS: MANUAL DIFF FLAG NO
[2025-02-11 16:28] LABS: Basophils Absolute Auto 0.1 X10*3/uL (0.0-0.2); Basophils Percent Auto 0.6 % (0-2); Eosinophils Absolute Auto 0.3 X10*3/uL (0.0-0.4); Eosinophils Percent Auto 2.4 % (0-4); Hematocrit 37.4 % (42.0-52.0); Hemoglobin 13.4 g/dl (14.0-18.0); Imm Gran Abs Auto 0.04 X10*3/uL (0.00-0.03); Imm Gran Pct Auto 0.4 % (0.0-0.4); Lymphocytes Absolute Auto 2.9 X10*3/uL (1.2-4.9); Lymphocytes Percent Auto 26.9 % (20-40); Mean Corpuscular HGB Conc 35.8 g/dl (31.0-36.0); Mean Corpuscular Volume 83.9 fL (80.0-98.0); Mean Platelet Volume 10.7 fL (9.4-12.4); Monocytes Absolute Auto 0.9 X10*3/uL (0.1-1.2); Monocytes Percent Auto 8.6 % (2-11); Neutrophils Absolute Auto 6.6 x10*3/uL (2.0-8.3); Neutrophils Percent Auto 61.1 % (45-73); Platelet Count 213 X10*3/uL (160-400); Red Blood Count 4.46 X10*6/uL (4.60-5.80); Red Cell Distribution Width 12.8 % (11.0-16.0); White Blood Count 10.8 X10*3/uL (4.8-10.8)
[2025-02-11 16:41] LABS: Alanine Aminotransferase 24 U/L (0-40); Albumin Level 4.3 g/dL (3.5-5.0); Alkaline Phosphatase 49 U/L (39-117); Anion Gap 14 (12-20); Aspartate Amino Transferase 21 U/L (5-37); Bilirubin Total 0.2 mg/dL (0.0-1.0); Blood Urea Nitrogen 13 mg/dL (9-16); Calcium 9.1 mg/dL (8.4-10.2); Carbon Dioxide 23 mmol/L (22-29); Chloride 99 mmol/L (96-108); Creatinine Clr Calc Pharmacy 102.8; Estimated Glomerular Filt Rate > 60; Glucose Random 263 mg/dL (60-115); Lipase 39 U/L (8-78); Potassium 3.9 mmol/L (3.3-5.1); Sodium 132 mmol/L (135-145); Total Protein 7.2 g/dL (6.5-8.0)
[2025-02-11] MEDS: Ketorolac Tromethamine 30 MG/ML VIAL IVPUSH (17:23)
[2025-02-11] MEDS: ondansetron HCL 4 MG/2 ML VIAL IVPUSH (17:24)
[2025-02-11 17:37] LABS: Appearance Urine Clear; Color Urine Yellow; Glucose Urine UA >=1000 mg/dL (Negative); Leukocyte Esterase Urine Negative (Negative); Nitrite Urine Negative (Negative); PH 5.5 (5.0-9.0); Specific Gravity - Urine 1.025 (1.005-1.025); UMIC TRIGGER UACC YES; Urine Blood Negative (Negative); Urine Ketones Negative (Negative); Urine Protein Negative (Neg-Trace)
[2025-02-11 17:42] LABS: Bacteria Urine None Seen (None Seen); Hyaline Casts Urine 0-2 /LPF (0-2); RBC Urine 0-2 /HPF (0-2); Squamous Epithelial Cell Urine 0-2 /HPF (0-2); WBC Urine 0-5 /HPF (0-5)
[2025-02-11] MEDS: Amoxicillin/Potassium Clav 875 MG TABLET PO (20:02)
[2025-02-11 20:06] VITALS: BP 144/70; PULSE 71; RESP 16; TEMP 36.8; O2SAT 98
[2025-02-11 21:47] LABS: Glucose, Whole Blood 208 mg/dL (60-115)
== END 2025-02-11 20:07 | disposition home or self-care (01) ==
PROVIDERS: Physician Assistant; Physician Assistant Medical; Emergency Provider Internal Medicine; PCP Internal Medicine
DX: K57.32 Diverticulitis of large intestine without perforation or abscess without bleeding (principal); M54.50 Low back pain, unspecified; R42 Dizziness and giddiness; R10.2 Pelvic and perineal pain; R11.0 Nausea; D64.9 Anemia, unspecified; I10 Essential (primary) hypertension; F17.210 Nicotine dependence, cigarettes, uncomplicated; Z79.899 Other long term (current) drug therapy
CPT/HCPCS: 36415; 71046; 74176; 80053; 81001; 82947; 83690; 85025; 93005; 96374; 96375; 99284; J1885; J2405

== ENCOUNTER → 2025-02-11 15:57 | Outpatient (BNV) | payer OTHER, SELFPAY | PROVIDERS: PCP Internal Medicine; Visit Provider Nuclear Medicine | DX: K57.30 Diverticulosis of large intestine without perforation or abscess without bleeding (principal); R53.1 Weakness | CPT/HCPCS: 71046; 74176 ==

== ENCOUNTER → 2025-02-11 15:57 | Outpatient (BNV) | payer OTHER, SELFPAY | PROVIDERS: Emergency Provider Internal Medicine; PCP Internal Medicine; Visit Provider Internal Medicine Cardiovascular Disease | DX: M54.9 Dorsalgia, unspecified (principal) | CPT/HCPCS: 93010 ==

== ENCOUNTER 2025-02-23 10:19 | Outpatient (AMB) | payer OTHER, SELFPAY ==
[2025-02-23 10:38] VITALS: BP 130/82; PULSE 87; O2SAT 96; BMI 25.4
--- NOTE | 2025-02-23 10:38 | MHC.PC.OV ---
Vital Signs 02/23/25 10:38 Height 6 ft Weight 187 lb 2 oz BMI 25.4 BP 130/82 Blood Pressure Location Lt brachial Position Sitting Pulse 87 Pulse Source Pulse Oximeter Pulse Oximetry (%) 96 Oxygen Delivery Method Room Air Intake Visit Reasons[place] [facility],back pain ,dizziness Pack Press Operator Required: No Accompanied by: Self / Same As Patient Allergies amoxicillin [From Augmentin] Adverse Reaction (Intermediate, Verified 02/23/25 12:05) Rash clavulanic acid [From Augmentin] Adverse Reaction (Intermediate, Verified 02/23/25 12:05) Rash dulaglutide [From Trulicity] Adverse Reaction (Intermediate, Verified 02/23/25 11:05) Diarrhea Medication List - Last Reconciled 02/23/25 by Jil Virk PA-C amoxicillin-pot clavulanate 875-125 mg 1 tab PO Q12H 7 days blood-glucose sensor (FreeStyle Roberto 3 Sensor device) DIRECTED cyclobenzaprine 5 mg PO Q8H PRN gabapentin 300 mg PO TID 90 days glucagon 3 mg/actuation (Baqsimi) 3 mg intranasal ONCE hydrochlorothiazide 25 mg PO QAM ibuprofen 800 mg PO Q8H insulin degludec (Tresiba FlexTouch U-100 insulin) 32 units (0.32 mL) subcut DAILY latanoprost 0.005% 1 drp ophthalmic (eye) BEDTIME lidocaine 5% (Lidoderm) 1 patch topical DAILY lisinopril 30 mg PO DAILY 90 days metformin 1,000 mg (2 x 500 mg) PO BID ondansetron 4 mg PO DAILY PRN 5 days pen needle, diabetic (Comfort EZ Pen [place]) As directed pen needle, diabetic (BD Rowena 2nd Gen Pen Needle) As directed once a day simvastatin 40 mg PO QPM 90 days travoprost 0.004% (Travatan Z) 1 drp ophthalmic (eye) QPM Tobacco use date assessed: 02/23/25 Dental Screening Dental Screen Date: 02/23/25 Did you have a dental visit in the last 12 months?: Yes Did you have a dental problem in the last 6 months where you did not have access to dental care?: No Was dental information given to patient?: Patient has dentist HPI [facility] [place]d,back pain ,dizziness HPI Details 59-year-old male with past medical history of diabetes mellitus, generalized anxiety disorder, hepatic steatosis, hypercholesterolemia, hypertension last seen by Dr. Park 01/2025 coming in for follow up. In review of the notes, patient was seen in [facility] 01/2025 for low back pain, CT scan concern for diverticulitis discharged home with Augmentin and conservative management for back pain.? Presenting with chronic lower back pain, dermatological concerns, and hand discomfort. The chronic lower back pain has persisted for years and is worse with movements such as walking and sitting, indicating a musculoskeletal etiology. Dermatological reactions including burning and peeling of the skin on the hands began last week, following recent antibiotic treatment. He has not had any recurrence and has never had an episode like this in the past. Recent gastrointestinal home screening test for colon health was negative, and the patient expresses a need for further evaluation (colonoscopy consideration) due to recent diverticulitis. He was previously being seen by Dr. Buchanan through [facility] for his cervical neck pain and underwent surgery at that time. He has not been evaluated by his low back pain. [facility] Medical History Type 2 diabetes mellitus with hyperglycemia (~2000) Colon cancer screening Nicotine dependence, cigarettes, uncomplicated Generalized anxiety disorder Glaucoma Thoracic radiculopathy due to degenerative joint disease of spine Anxiety Hepatitis C antibody positive in blood Hepatitis B Hypercholesterolemia Hypertension Surgical History History of cervical spinal surgery History of fusion of cervical spine Family History Father Hypertension Mother Hypertension Maternal Uncle Pancreatic cancer Sister Substance abuse Brother Substance abuse Bladder cancer Social History Household Members: Spouse Household Members Other:: Housing: House Alcohol intake: never Patient Tobacco Use Status: Current everyday Tobacco user Tobacco use type: Cigarette Cigarette Packs Per Day: 1 Years Smoked: (onset 12yo, 1ppd x 45yrs, 40+PYH) e-Cigarette/Vaping Use: Never Used Second Hand Smoke Exposure: No service: No Current occupational status: unemployed Cognitive needs: No Hearing needs: No Vision needs: Yes Questionnaire PHQ-9 Over the last 2 weeks, how often have you been bothered by any of the following problems? 1. Little interest or pleasure in doing things: not at all 2. Feeling down, depressed, or hopeless: not at all 3. Trouble falling or staying asleep, or sleeping too much: not at all 4. Feeling tired or having little energy: not at all 5. Poor appetite or overeating: not at all 6. Feeling bad about yourself - or that you are a failure or have let yourself or your family down: not at all 7. Trouble concentrating on things, such as reading the newspaper or watching television: not at all 8. Moving or speaking so slowly that other people could have noticed. Or the opposite - being so fidgety or restless that you have been moving around a lot more than usual: not at all 9. Thoughts that you would be better off or of hurting yourself in some way: not at all Total score: 0 Depression Screening Interpretation: Negative Depression Screening Done: Yes Source: Developed by Drs. Giacomo Lira, Kathleen Irizarry, Luis E Workman and colleagues, with an educational christin from [employer]. Thrive Questionnaire Date Thrive assessed: 02/23/25 I am a: Patient What is your living situation today?: I have a steady place to live Within the past 12 months, did the food you bought not last and you didn't have the money to get more?: Never true Within the past 12 months, did you worry whether your food would run out before you got money to buy more?: Never true Do you have trouble paying for medicines?: No Do you have trouble getting transportation to medical appointments?: No Do you have trouble paying your heating and electricity bill?: No Do you have trouble taking care of your child, family member or friend?: No Do you have trouble with day-to-day activities such as bathing, preparing meals, shopping, managing finances, etc.?: No Are you currently unemployed and looking for a job?: No Are you interested in more education?: No Please select the resources that you would like help with: None Currently or been in a relationship where the following occur: No concerns reported THRIVE Score: 0 AUDIT C Alcohol Use Questionnaire (AUDIT-C) 1. How often do you have a drink containing alcohol?: Never 3. How often do you have six or more drinks on one occasion?: Never Total Score: 0 TARYN-7 AMB Questionnaire TARYN-7 Date TARYN - 7 assessed: 02/23/25 Feeling nervous, anxious, or on edge: 0 = Not at all Not being able to stop or control worryin = Not at all Worrying too much about different things: 0 = Not at all Trouble relaxin = Not at all Being so restless that it is hard to sit still: 0 = Not at all Becoming easily annoyed or irritable: 0 = Not at all Feeling afraid as if something awful might happen: 0 = Not at all Total TARYN-7 score (0-4 normal; 5-9 mild; 10-14 moderate; 15-21 severe): 0 Source: Developed by Drs. Giacomo Lira, Kathleen Irizarry, Luis E Workman and colleagues, with an educational christin from [employer]. Review of Systems Const Denies body aches, Denies chills, Denies fever(s), Denies headache(s) and Denies poor appetite Eyes Reports no additional complaints ENT Denies dysphagia, Denies dizziness, Denies headache(s) and Denies odynophagia Card Denies chest pain, Denies syncope, Denies edema, Denies irregular heart rhythm, Denies lightheadedness and Denies dyspnea Resp Denies cough and Denies dyspnea GI Denies abdominal pain, Denies constipation, Denies dysphagia, Denies diarrhea, Denies nausea, Denies odynophagia and Denies vomiting Reports no additional complaints Musc Reports abnormal gait and Reports back pain Skin/Breast Reports as per HPI Neuro Reports abnormal gait, Denies dizziness, Denies syncope and Denies headache(s) Psych Reports no additional complaints Physical exam (Primary Care) Vital Signs: Last Vital Signs Pulse 87 02/23/25 10:38 BP 130/82 02/23/25 10:38 Pulse Ox 96 02/23/25 10:38 Oxygen Delivery Method Room Air 02/23/25 10:38 BMI result Body Mass Index 25.4 Tobacco/Smoking Status: Tobacco use Status Tobacco use date assessed 02/23/25 02/23/25 10:39 Patient Tobacco Use Status Current everyday Tobacco 02/23/25 10:39 Tobacco use type Cigarette 02/23/25 10:39 e-Cigarette/Vaping Use Never Used 02/23/25 10:39 PHQ-9: PHQ-9 Score PHQ-9: Total score 0 02/23/25 11:01 Depression Screening Interpretation: Negative Thrive Assessment: Date of Thrive Assessment Date Thrive assessed 02/23/25 02/23/25 10:39 Currently or been in a relationship where the following occur: No concerns reported Const General: cooperative, healthy appearing, comfortable and no acute distress Orientation/consciousness: patient oriented x3 HENMT Head: Yes normocephalic Ears: hearing grossly normal bilaterally General nose exam: Normal external nose present Eyes General: appearance normal, both eyes and all related structures Conjunctivae: conjunctivae normal Neck Neck: Yes full ROM and Yes no lymphadenopathy Resp Effort & Inspection: normal respiratory effort Auscultation: clear to auscultation bilaterally, no crackles, no rales, no rhonchi and no wheezes Cardio Rate: regular rate Rhythm: regular rhythm GI Inspection: Yes normal to inspection Palpation (GI): Soft to palpation, not firm, nontender, no guarding, not rigid and No Rebound tenderness present Back/Spine/Pelvis Other: tenderness to palpation over right paraspinal mucles. negative straight leg bilaterally. no tenderness to palpation over spine or thomas hips Skin Other: hands are normal to inspection without rash or desquamation General skin exam: no rashes or lesions noted Neuro General: patient oriented x3 Gait exam (Neuro): Normal gait present Extrem General: Yes normal to inspection, Yes full ROM and No edema Psych Affect: normal affect Attitude: cooperative Insight: Good insight present (Psych) Judgement: Good judgement present (Psych) Coding Level of Care Code Est Pt Level 4 (57836) Diagnoses Diverticulitis K57.92 Low back pain M54.50 Skin rash R21 Assessment & Plan Assessment & Plan (1) Diverticulitis: Code(s): K57.92 - Diverticulitis of intestine, part unspecified, without perforation or abscess without bleeding Category: Medical Plan: Patient having recent episode of diverticulitis successfully resolved with Augmentin. Patient is asymptomatic at this time and states his stool has returned to normal and denies any abdominal pain. Per his discharge paperwork recommending referral to Gastroenterology for colonoscopy as patient has not had colonoscopy completed in the past. Referral was placed (2) Low back pain: Code(s): M54.50 - Low back pain, unspecified Category: Medical Plan: Patient having low back pain ongoing for several years. On exam tenderness to palpation of right paraspinal muscles and negative straight leg raise. Patient is also positional raising concerns for muscular etiology. At this time patient reporting severe pain without saddle anesthesia or incontinence of bowel or bladder and no recent injury. Patient would like to be referred to pain management at this time and defer physical therapy and spinal specialists. Referral was placed to pain management for further evaluation (3) Skin rash: Code(s): R21 - Rash and other nonspecific skin eruption Category: Medical Plan: Patient reporting skin rash with associated burning sensation in bilateral hands followed by desquamation of bilateral hands that has since resolved. He states this began once he started taking the antibiotic and muscle relaxer. Likely related to the use of medication at this time plan to use Augmentin and cyclobenzaprine with caution as unsure which medication may have caused this reaction. Discussed with patient if reaction reoccurs to reach out to the office for evaluation. Plan This note was constructed using voice recognition software. While every effort has been made to ensure accuracy and fermenter helper, still areas may have been included sometimes these areas may affect the content or meeting of the given symptoms. Total time spent caring for the patient today was 20 minutes. This includes time spent before the visit reviewing the chart, time spent during the visit, and time spent after the visit and documentation. Patient was informed and verbally consented to the use of an ambient scribe for clinic note documentation during this visit. Orders: Referrals Gastroenterology Referral K57.92 - Diverticulitis of intestine, part unspecified, without perforation or abscess without bleeding, Z12.11 - Encounter for screening for malignant neoplasm of colon Pain Management Referral M54.50 - Low back pain, unspecified Medications: Discontinued amoxicillin-pot clavulanate 875-125 mg Discontinued Reason: Patient no longer taking 1 tab PO Q12H 7 days 14 tabs 0RF cyclobenzaprine Discontinued Reason: Patient no longer taking 5 mg PO Q8H PRN 7 tabs 0RF muscle spasm
--- OUTSIDE RECORDS SUMMARY | 2025-02-23 12:10 | XMS_ITS ---
Author Organization [facility] Lyle [facility] Address [address] [place] [address] Care Team Providers Care Plate Grainer Apprentice Name Role Phone Verenice Park Primary Care Provider Nicholas Kee Unavailable [phone] Virginia Borges Unavailable [phone] Allergies No Known Allergies REASON FOR VISIT [...] 12/22/2023 Encounters Encounter Location Date Provider Diagnosis [facility] [place] [address] [place] [address] 12/22/2023 Virginia Borges Type 2 diabetes mellitus [...] Reason: Provider Name:Virginia knowles, 03/07/2025 03:00:00 PM, [address] [place] [address], [phone], Progress Notes * Sarthak NUNEZDOB: [birth year] (58 yo M)Acc No.[id number]:12/22/2023 Progress Notes Patient:?Enrique Sarthak Provider:?Virginia Borges DPM :1965???Age:58 Y???Sex:Male Ga e:12/22/2023 Address:[address] [place] [id number] Pcp:Verenice Park Subjective: * Chief Complaints: * [...] Borges DPM Date:?04/2024 Generated for Nura fisher/Ella/Catherinesmitting on:?02/23/2025 12:10 PM EDT History and Physical Notes * [...]
--- OUTSIDE RECORDS SUMMARY | 2025-02-23 12:10 | XMS_ITS | Patient Health Record ---
Author Organization [facility]yle [facility] Address [address] [place] [address] Care Team Providers Care Stereoplotter Operator Name Role Phone Xavier Staceyfelipa Primary Care Provider Nicholas Kee Unavailable [phone] Virginia Borges Unavailable [phone] Allergies No Known Allergies Reason For Referral [...] Polyneuropathy due to type 2 diabetes mellitus (655221682) Type 2 diabetes mellitus with diabetic polyneuropathy (E11.42) Active confirmed Problem Acquired hammer toe of right foot (5381236485629586 ) Other hammer toe(s) (acquired), right foot (M20.41) Active confirmed Encounters Encounter Location Date Provider Diagnosis [facility] [place] [address] [place] [address] 12/22/2024 Nicholas Reilly Plan Of Treatment Pending Test Test Name Order Date X ray : Foot, right 3V 05/22/2023 X ray : Foot, right 3V 11/06/2023 X ray : Foot, right 3V 12/01/2023 [id number] SKIN LESIONS, 2 TO 4 05/22/20 23 Next Appt Details Provider Name:Virginia knowles, 03/07/2025 03:00:00 PM, [address] [facility], [place], [address], Insurance Providers Payer Name Payer Address Payer Phone Subscriber Number Group Number Insured Name Patient Relationship to Insured Coverage Start Date Coverage End Date [facility] [address] [address] [place] [address] [phone] [id number] Kristi Nunez Spouse - patient is the spouse of the insured Medical (General) History Medical History History ICD Code Anxiety Back,Hip,and Knee pain Diabetic High blood pressure Numbness Poor circulation Chicken pox Joint implants/screws Glaucoma Surgical History Surgery Date(Month/Year) spinal fusion titanium plates HT R 4,5 DIAB P/B 11/25/23
--- OUTSIDE RECORDS SUMMARY | 2025-02-23 12:10 | XMS_ITS ---
Author Organization [facility] Address [address] [place] [phone] Care Team Providers Care Pilates Instructor Name Role Phone Verenice Park Primary Care Provider Nicholas Kee [phone] REASON FOR VISIT Reschedule Encounters Encounter Location Date Provider Diagnosis [address] [address] 12/22/2024 Nicholas Reilly Plan Of Treatment Next Appt Details Provider Name:Virginia knowles, 03/07/2025 03:00:00 PM, [address] [place] [address], [phone], Progress Notes * Sarthak NUNEZDOB: [birth year] (59 yo M)Acc No.[id number]:12/22/2024 Patient:?ENRIQUE Sarthak :1965???Age:59 Y???Sex:Male Address:[address] [place] [address] [address] [place] [address] * true * Date:? Generated for Printi ng/Faxing/eTransmitting on:?02/23/2025 12:10 PM EDT
--- OUTSIDE RECORDS SUMMARY | 2025-02-23 12:10 | XMS_ITS ---
[facility] Organization [facility] Address [address] [place] [address] Care Team Providers Care Research Professor Name Role Phone Verenice Park Primary Care Provider Nicholas Kee Unavailable [phone] Virginia Borges Unavailable [phone] Medications Medication SIG (Take, Route, Frequency, Duration) [...] Active Encounters Encounter Location Date [facility] [address] [place] [address] 12/23/2024 Virginia Borges Plan Of Treatment Next Appt Details Provider Name:Virginia knowles, 03/07/2025 03:00:00 PM, [address] [place], [address], Progress Notes * Sarthak NUNEZDOB: [birth year] (59 yo M)Acc No.[id number]:12/23/2024 Progress Note Patient:Sarthak CAAL Provider:?Virginia Borges DPM :1965???Age:59 Y???Sex:Male Ga e:12/23/2024 Address:[address] [place], [place] [phone] Pcp:Verenice Park Subjective: * Chief Complaints: * [...] Borges DPM Date:?05/2025 Generated for Nura fisher/Ella/eTmamadousmitting on:?02/23/2025 12:10 PM EDT
--- OUTSIDE RECORDS SUMMARY | 2025-02-23 12:10 | XMS_ITS | Clinical Summary ---
Author Organization [facility] Address [address] [place] [address] Care Team Providers Care Brushing Operator Name Role Phone Verenice Park MD Primary Care Provider [phone] Surgical History Surgery Date Site/Laterality Comments NECK SURGERY 03/31/2019 PROCEDURE: HISTORICAL NECK SURGERY; COMMENT: C5-6 C6-7 acdf NECK SURGERY 12/2017 PROCEDURE: HISTORICAL NECK SURGERY; COMMENT: C5-6 C6-7 right foraminotomy Medical History Medical History Date Comments Diabetes mellitus type 2, co ntrolled, with complications (CMS/HCC V24, CMS/HCC V28) DX:Diabetes mellitus type 2, controlled, with complications ([facility]) Essential hypertension DX:Essent ial hypertension Social History [...] age to complete this topic Meningococcal B Vaccine Aged Out No l onger eligible based on patient's age to complete this topic RSV Immunization Patients Un mohit 20 months Aged Out No longer eligible b ased on patient's age to complete this topic Varicella Vaccines Aged Out No longer eligible based on patient's age to complete this topic Advance Directives Documents on File Type Date Recorded Patient Building Trades Instructor Expl anation Health Care Decision (hx) 12/24/2017 AD LIANG DIRECTIVE Health Care Decision (hx) 12/24/2017 AD LIANG DIRECTIVE Health Care Decision (hx) 12/24/2017 AD LIANG DIRECTIVE Health Care Decision (hx) 12/24/2017 AD LIANG DIRECTIVE Care Teams Brushing Operator Relationship Specialty Start Date End Date Verenice Park MD [address] [place] [address] [address] [facility] [place] [id number] PCP - General Internal Medicine 11/12/17
== END 2025-02-23 11:37 | disposition home or self-care (01) ==
LOC: HO.HMCH 10:20
PROVIDERS: PCP Internal Medicine
DX: K57.92 Diverticulitis of intestine, part unspecified, without perforation or abscess without bleeding (principal); M54.50 Low back pain, unspecified; R21 Rash and other nonspecific skin eruption

== ENCOUNTER → 2025-02-23 10:19 | Outpatient (BNVA) | payer OTHER, SELFPAY | PROVIDERS: PCP Internal Medicine | DX: Z13.89 Encounter for screening for other disorder (principal) ==

== ENCOUNTER 2025-03-17 09:56 | Outpatient (AMB) | payer OTHER, SELFPAY ==
--- NOTE | 2025-03-17 09:58 | MHC.OFFVIS ---
Vital Signs 03/17/25 10:00 Height 6 ft Weight 183 lb BMI 24.8 BP 146/75 H Blood Pressure Location Lt brachial Position Sitting Respiration 16 Pulse 83 Pulse Source Pulse Oximeter Pulse Oximetry (%) 97 Oxygen Delivery Method Room Air Intake Visit Reasons: Low back pain, unspecified Flour Tester Required: No Allergies amoxicillin [From Augmentin] Adverse Reaction (Intermediate, Verified 03/17/25 10:02) Rash clavulanic acid [From Augmentin] Adverse Reaction (Intermediate, Verified 03/17/25 10:02) Rash dulaglutide [From Trulicity] Adverse Reaction (Intermediate, Verified 03/17/25 10:02) Diarrhea Medication List - Last Reconciled 03/17/25 by Eileen Dang LPN blood-glucose sensor (FamelySt[employer]Fan[employer] Roberto 3 Sensor device) DIRECTED gabapentin 300 mg PO TID 90 days glucagon 3 mg/actuation (Baqsimi) 3 mg intranasal ONCE hydrochlorothiazide 25 mg PO QAM ibuprofen 800 mg PO Q8H insulin degludec (Tresiba FlexTouch U-100 insulin) 32 units (0.32 mL) subcut DAILY latanoprost 0.005% 1 drp ophthalmic (eye) BEDTIME lisinopril 30 mg PO DAILY 90 days metformin 1,000 mg (2 x 500 mg) PO BID ondansetron 4 mg PO DAILY PRN 5 days pen needle, diabetic (Comfort EZ Pen Wilson) As directed pen needle, diabetic (BD Rowena 2nd Gen Pen Needle) As directed once a day simvastatin 40 mg PO QPM 90 days travoprost 0.004% (Travatan Z) 1 drp ophthalmic (eye) QPM HPI HPI Low back pain, unspecified: Details: History of Present Illness The patient is a 59-year-old male presenting with chronic lower back pain. He reports persistent symptoms over several years, including shooting pain radiating from the lower back to the right leg, causing numbness and impacting his ability to walk. The pain is rated as a ten on a scale of 1 to 10 most of the time, which remains unmitigated by ibuprofen. The patient has previously undergone cervical spine surgeries, but experiences chronic neck pain affecting arm and head mobility. No physical therapy has been administered for the lower back issue, though some exercises are performed at home. He has not had any imaging studies like MRI conducted for the lower back. Pain Description - Onset: Several years ago - Quality: Shooting and radiating - Primary Location: Lower back - Radiation: Pain radiates down the right leg - Severity: Ten on a scale of ten - Exacerbating Factors: Waking, walking, bending, tossing, and turning at night - Relieving Factors: None effectively identified - Interference with Activities: Walking, mobility, and daily activities are significantly impacted Physical Exam - Musculoskeletal- Positive straight leg raise on the right side - Musculoskeletal- Pain elicited when sitting up straight and lifting the right leg - Musculoskeletal- Pain reported in lower back upon standing from sitting position - Musculoskeletal- Pain experienced while bending forward and backward Pain Management - Affect: Pain significantly impacting mood and activities of daily living - Analgesia: Current use of ibuprofen 800 mg; pain level described as a ten - Adverse Effects: No significant adverse effects of current medications reported; concern mentioned for potential ibuprofen-related side effects - Activities of Daily Living: Considerable impairment in walking and mobility; unable to sustain prolonged standing - Aberrant Drug Related Behaviors: None reported [facility] Medical History Type 2 diabetes mellitus with hyperglycemia (~1999) Colon cancer screening Nicotine dependence, cigarettes, uncomplicated Generalized anxiety disorder Glaucoma Thoracic radiculopathy due to degenerative joint disease of spine Anxiety Hepatitis C antibody positive in blood Hepatitis B Hypercholesterolemia Hypertension Surgical History History of cervical spinal surgery History of fusion of cervical spine Family History Father Hypertension Mother Hypertension Maternal Uncle Pancreatic cancer Sister Substance abuse Brother Substance abuse Bladder cancer Social History Household Members: Spouse Household Members Other:: Housing: House Alcohol intake: never Patient Tobacco Use Status: Current everyday Tobacco user Tobacco use type: Cigarette Cigarette Packs Per Day: 1 Years Smoked: (onset 12yo, 1ppd x 45yrs, 40+PYH) e-Cigarette/Vaping Use: Never Used Second Hand Smoke Exposure: No service: No Current occupational status: unemployed Cognitive needs: No Hearing needs: No Vision needs: Yes Physical Exam Vital Signs: Last Vital Signs Pulse 83 03/17/25 10:00 Resp 16 03/17/25 10:00 BP 146/75 H 03/17/25 10:00 Pulse Ox 97 03/17/25 10:00 Oxygen Delivery Method Room Air 03/17/25 10:00 BMI result Body Mass Index 24.8 Assessment & Plan Assessment & Plan (1) Lumbar radicular pain: Code(s): M54.16 - Radiculopathy, lumbar region Category: Medical (2) Lumbar spondylosis: Code(s): M47.816 - Spondylosis without myelopathy or radiculopathy, lumbar region Category: Medical Plan Plan - Recommend physical therapy for the lower back, considering a local option if recurrent sessions are needed. - Arrange for MRI of the lumbar spine if physical therapy yields insufficient improvement. - Considerate administration of injections for pain management pending results of MRI and physical therapy evaluation. - Plan a follow-up telehealth visit in eight weeks to evaluate progress and adjust the care plan as needed. Patient was informed and verbally consented to the use of an ambient scribe for clinic note documentation during this visit. Discussion Notes I discussed with the patient the management options for his chronic lower back pain, emphasizing the importance of physical therapy as a stepping stone toward further treatments like MRI evaluation. The necessity for MRI and possibly subsequent injections depending on physical therapy outcomes was explained, alongside the denial cycle from insurance without documented attempts at physical therapy. We addressed the risks of long-term use of ibuprofen regarding gastrointestinal and renal health. Consent was obtained for the outlined plan, including physical therapy and the follow-up arrangement. The patient was receptive to the plan and showed understanding of the outlined steps and their necessity in obtaining further diagnostic imaging and pain relief solutions. Patient Instructions - Attend physical therapy for your lower back as discussed. - Explore local options for physical therapy sessions close to home. - Monitor pain levels and report any changes or significant side effects. - Continue current medications as advised, with caution to overuse. - Return for a telehealth visit in eight weeks. - Seek care promptly if new symptoms arise or pain significantly worsens. Orders: Orders PT Evaluation and Treatment 03/17/25 M54.16 - Radiculopathy, lumbar region, M47.816 - Spondylosis without myelopathy or radiculopathy, lumbar region Coding Level of Care Code New Pt Level 4 (25773) Diagnoses Lumbar radicular pain M54.16 Lumbar spondylosis M47.816
[2025-03-17 10:00] VITALS: BP 146/75; PULSE 83; RESP 16; O2SAT 97; BMI 24.8
--- OUTSIDE RECORDS SUMMARY | 2025-03-17 10:56 | XMS_ITS | Clinical Summary ---
Author Organization [facility] Address [address] [place] [address] Care Team Providers Care Microbiology Laboratory Manager Name Role Phone Verenice Park MD Primary Care Provider [phone] Surgical History Surgery Date Site/Laterality Comments NECK SURGERY 03/31/2019 PROCEDURE: HISTORICAL NECK SURGERY; COMMENT: C5-6 C6-7 acdf NECK SURGERY 12/2017 PROCEDURE: HISTORICAL NECK SURGERY; COMMENT: C5-6 C6-7 right foraminotomy Medical History Medical History Date Comments Diabetes mellitus type 2, co ntrolled, with complications (CMS/HCC V24, CMS/HCC V28) DX:Diabetes mellitus type 2, controlled, with complications ([facility]) Essential hypertension DX:Essent ial hypertension Social History [...] - 2023-2 5 season) 2024 Influenza Vaccine (Season Ended) 2025 HIB Vaccines Aged Out No longer eligi [...] Documents on File Type Date Recorded 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
--- OUTSIDE RECORDS SUMMARY | 2025-03-17 10:56 | XMS_ITS | Patient Health Record ---
Author Organization [facility] Lyle Hillley Address [address] [place] [address] Care Team Providers Care Pc Maintenance Technician Name Role Phone Xavier Staceyfelipa Primary Care Provider Nicholas Kee Unavailable [phone] Virginia Borges Unavailable [phone] Allergies Allergen (clinical drug ingredient) Drug/Non Drug Allergy documented on EMR Reaction Allergy Type Onset Date Status amoxicillin / clavulanate Augmentin rash Drug Allergy Active Results Component Value Reference Range Notes HEMOGLOBIN A1C (GLYCOHEMOGLO BIN) Reviewed date:03/07/2025 02:51:18 PM Interpretation: Performing Lab: Notes/Report: HEMOGLOBIN A1C % (HH) 6.7 Reason For Referral No Information Medications Medication SIG (Take, Route, Frequency, Duration) Notes Start Date End Date Status Lisinopril 40 MG 1 tablet Orally Once a day for 30 day(s) Active Gabapentin 400 MG 1 capsule Orally 3 t imes a day for 30 days Active Simvastatin 40 MG 1 tablet in the even ing Orally Once a day for 30 day(s) Active Aspir-81 Not-Taking Ibuprofen 800 MG 1 tablet with food o r milk as needed Orally every 8 hrs for 7 days 11/26/2023 Active Percocet 5-325 MG 1 tablet as needed O rally every 4-6 hrs as needed for breakthrough pain for 3 days 11/26/2023 Active metFORMIN HCl 500 MG 1 tablet with a bhaskar l Orally Once a day for 30 day(s) Active Latanoprost Active Tresiba Active Immunizations Vaccine Route Administration Date Status [...] Problem Status W/U Status Risk Notes Problem Acquired hammer toe of left foot (3806517076297305 ) Other hammer toe(s) (acquired), left foot (M20.42) Active confirmed Problem Polyneuropathy due to type 2 diabetes mellitus (109678785) Type 2 diabetes mellitus with diabetic polyneuropathy (E11.42) Active confirmed Problem Acquired hammer toe of right foot (9739915667839720 ) Other hammer toe(s) (acquired), right foot (M20.41) Active confirmed Vital Signs Blood pressure diastolic 77 mm Hg 03/07/2025 Height 5ft8in in 03/07/2025 Blood pressure systolic 121 mm Hg 03/07/2025 Weight 186 lbs 03/07/2025 BMI 28.28 kg/m2 03/07/2025 Encounters Encounter Location Date Provider Diagnosis [facility] [address] [address] 03/07/2025 Virginia Borges Type 2 diabetes mellitus with diabetic polyneuropathy E11.42 ; Other hammer toe(s) (acquired), right foot M20.41 and Other hammer toe(s) (acquired), left foot M20.[address] [facility] [address] 12/22/2024 Nicholas Reilly Assessments Encounter Date Diagnosis (ICD Code) Assessment Notes Treatment Notes Treatment Clinical Notes Section Notes 03/07/2025 Other hammer toe(s) (acquired), right foot (ICD-10 - M20.41) 03/07/2025 Type 2 diabetes mellitus with diabetic polyneuropathy (ICD-10 - E11.42) 03/07/2025 Other hammer toe(s) (acquired), left foot (ICD-10 - M20.42) Plan Of Treatment Pending Test Test Name Order Date X ray : Foot, right 3V 05/22/2023 X ray : Foot, right 3V 11/06/2023 X ray : Foot, right 3V 12/01/2023 [id number] SKIN LESIONS, 2 TO 4 05/22/20 23 Next Appt Details Provider Name:Virginia knowles, 02/20/2026 10:00:00 AM, [address] [place] [address], [phone], Insurance Providers Payer Name Payer Address Payer Phone Subscriber Number Group Number Insured Name Patient Relationship to Insured Coverage Start Date Coverage End Date [facility] [address] [address] [place] [address] [id number] Kristi Nunez Spouse - patient is the spouse of the insured Medical (General) History Medical History History ICD Code Anxiety Back,Hip,and Knee pain Diabetic High blood pressure Numbness Poor circulation Chicken pox Joint implants/screws Glaucoma Surgical History Surgery Date(Month/Year) spinal fusion titanium plates HT R 4,5 DIAB P/B 11/25/23 Hospitalization History Reason Date(Month/Year) [facility]- back pains, stomach pains 5
--- OUTSIDE RECORDS SUMMARY | 2025-03-17 10:56 | XMS_ITS ---
Author Organization [facility] Address [address] [place] [address] Care Team Providers Care Community Mental Health Social Worker Name Role Phone eVrenice Park Primary Care Provider Nicholas Kee [phone] REASON FOR VISIT Reschedule Encounters Encounter Location Date Provider Diagnosis [address] [address] 12/22/2024 Nicholas Reilly Plan Of Treatment Next Appt Details Provider Name:Virginia knowles, 02/20/2026 10:00:00 AM, [address] [place] [address], [phone], Progress Notes * Sarthak NUNEZDOB: 7 (59 yo M)Acc No.[id number]:12/22/2024 Patient:?ENRIQUE Sarthak :1965???Age:59 Y???Sex:Male [facility] [address] [place] [address] * true * Date:? Generated for Printi ng/Faxing/eTransmitting on:?03/17/2025 10:56 AM EDT
--- OUTSIDE RECORDS SUMMARY | 2025-03-17 10:56 | XMS_ITS | Continuity of Care Document ---
Author Organization [facility] Address [address] [place] [address] Phone Care Team Providers Care Compensation Business Partner Name Role Phone Giacomo Jeffries MD Unavailable Unavailable Procedures Procedure Date SCODI--Optic Nerve Advance Directives Directive Yes / No Effective Date File Name No Information Encounters Encounter Description Practice Location Reason(s) For Visit Diagnoses Date Provider Providers Copied on Encounter [facility], [address] [place], [place] [address], [place], [address], [place] tel:[phone] No Information Nesha Gooden. [facility] [place], [place], [id number], [place]. tel:[phone] Referring Provider: Caleb Barragan OD, [address], [address]. tel:[phone] Family History Family Member Type Diagnosis Age At Onset No Information Payers Payer name Insurance type Covered green party ID Authorcaitlin foy(s) Elizabeth [facility] [id number] Social History Type Description Quantity Date Captured Comments Sex Male Smoking Status No Information Chief Complaint And Reason For Visit No Information Reason For Referral Reason For Referral No Information History Of Present Illness Encounter Date Complaint History Of Prese nt Illness No Information Functional Status Date Functional Assessmen t No Information Instructions Date Instruction Additional Infor mation No Information Assessments Type Assessment Date No Information Patient Care Teams Name Effective Dates (start - stop) Status Members No Information
--- OUTSIDE RECORDS SUMMARY | 2025-03-17 10:56 | XMS_ITS ---
Author Organization [facility] Address [address] [place] [address] Care Team Providers Care Legal Services Manager Name Role Phone Verenice Park Primary Care Provider Nicholas Kee Unavailable [phone] Virginia Borges Unavailable [phone] Medications Medication SIG (Take, Route, Frequency, Duration) [...] Active Encounters Encounter Location Date [facility] [address] [place] [address] 12/23/2024 Virginia Borges Plan Of Treatment Next Appt Details Provider Name:Virginia knowles, 02/20/2026 10:00:00 AM, [address] [place], [address], Progress Notes * Sarthak NUNEZDOB: 7 (59 yo M)Acc No.[id number]:12/23/2024 Progress Note Patient:Sarthak CAAL Provider:?Virginia Borges DPM :1965???Age:59 Y???Sex:Male Ga e:12/23/2024 Address:[address] [place], [place] [address] Pcp:Verenice Park Subjective: * Chief Complaints: * [...] Borges DPM Date:?05/2025 Generated for Nura fisher/Ella/eTmamadousmitting on:?03/17/2025 10:55 AM EDT
--- OUTSIDE RECORDS SUMMARY | 2025-03-17 10:56 | XMS_ITS ---
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 Name Role Phone Verenice Park Primary Care Provider Nicholas Kee Unavailable [phone] Virginia Borges Unavailable [phone] Allergies Allergen (clinical drug ingredient) Drug/Non Drug Allergy documented on EMR Reaction Allergy Type Onset Date Status amoxicillin / clavulanate Augmentin rash Drug Allergy Active REASON FOR VISIT At Risk Footcare, Toe Irritation Medications Medication SIG (Take, Route, Frequency, Duration) Notes Start Date End Date Status Aspir-81 Not-Taking Ibuprofen 800 MG 1 tablet [...] day for 30 day(s) Active Latanoprost Active Lisinopril 40 MG 1 tablet Orally Once a day for 30 day(s) Active Gabapentin 400 MG 1 capsule Orally 3 t imes a day for 30 days Active Simvastatin 40 MG 1 tablet in the even ing Orally Once a day for 30 day(s) Active Tresiba Active Social History Tobacco Use: Social History Observation Description Date Details (start date - stop date) Current Smoker NA - NA Tobacco Use/Smoking Question Answer Notes Are you a: current smoker How often do you smoke cigarettes? every day How many cigarettes a day do you smoke? 11-20 How soon after you wake up do you smoke your fir st cigarette? 31-60 minutes Tobacco use other than smoking: Question Answer Notes Are you an other tobacco user? No Problems Problem Type SNOMED Code ICD Code Onset Dates Problem Status W/U Status Risk Notes Problem Acquired hammer toe of left foot ([id number]) Other hammer toe(s) (acquired), left foot (M20.42) Active confirmed Vital Signs Height 5ft8in in 03/07/2025 Weight 186 lbs 03/07/2025 BMI 28.28 kg/m2 03/07/2025 Blood pressure systolic 121 mm Hg 03/07/20 25 Blood pressure diastolic 77 mm Hg 025 Encounters Encounter Location Date Provider Diagnosis [facility] [address] [place] [address] 03/07/2025 Virginia Borges Type 2 diabetes mellitus with diabetic polyneuropathy E11.42 ; Other hammer toe(s) (acquired), right foot M20.41 and Other hammer toe(s) (acquired), left foot M20.42 Assessments Encounter Date Diagnosis (ICD Code) Assessment Notes Treatment Notes Treatment Clinical Notes Section Notes 03/07/2025 Type 2 diabetes mellitus with diabetic polyneuropathy (ICD-10 - E11.42) 03/07/2025 Other hammer toe(s) (acquired), right foot (ICD-10 - M20.41) 03/07/2025 Other hammer toe(s) (acquired), left foot (ICD-10 - M20.42) Plan Of Treatment Next Appt Details Follow Up: 1 Year, Reason: Provider Name:Virginia knowles, 02/20/2026 10:00:00 AM, [address] [place], [address], Progress Notes * Sarthak NUNEZDOB: [birth year] (59 yo M)Acc No.[id number]:03/07/2025 Progress Note Patient:Sarthak CAAL Provider:?Virginia Borges DPM :1965???Age:59 Y???Sex:Male Ga e:03/07/2025 Address:[address] [place] [address] [id number] Pcp:Verenice Park Subjective: * Chief Complaints: * ???At Risk FootcareToe Irrit ation * HPI: ???At Risk footcare:?Pt States Last PCP Visit:?Date?02/28/2025 ???Toe pain:?Location:?B/L feet.?Duration:?several years.?Course:?worse.?Aggravated by:?shoes, any pressure.?Treatments:?change in shoes.? * ROS:?General/Constitutional:?Nausea?denies.?Vomiting?denies.?Hunger Thirst?denies.?Loss appetite?denies.?Chills?denies.?Fatigue?denies.?Fever?denies.?Night Sweats?denies.?Unexplained weight loss?denies.?Unexplained weight gain?denies.?HEENTM:?Dentures?denies.?Dizziness?denies.?Glasses/contacts?denies.?Retinopathy?den ies.?Blurred/double vision?denies.?TMJ?denies.?Discharge/drainage?denies.?Implants?denies.?Sore throat?denies.?Dental implants?denies.?Hard of hearing ?denies.?Difficulty chewing/swallowing/speaking?denies.?Nose bleeds?denies.?Sore mouth?denies.?Respiratory:?On O xygen?denies.?Pneumonia/pleurisy?denies.?Bronchitis?denies.?Emphysema?denies.?Co ughing?denies.?Cough blood?denies.?Shortness of breath?denies.?Wheezing?denies.?Cardiovascular:?Pacemaker?denies.?MVP?denies.?WPW?denies.?CHF?denies.?Heart attack?denies.?Septal defect?denies.?Rapid beat?denies.?Chest pain ?denies.?Atrial Fib.?denies.?Murmur/Palpitations?denies.?Gastrointestinal:?Hemorrhoids?denies.?Stomach/Abdominal pain?denies.?Dark blood stool?denies.?Irritable bowel ?denies.?Constipation?denies.?Diarrhea?denies.?Hematology:?Swelling?admits.?Clots?denies.?Varicose Veins?denies.?Bruising?denies.?Bleeding problem?denies.?Genitourinary:?Blood urine?denies.?Frequent/Painfu/urination/bladder control?denies.?Kidney stones?denies.?Infection (UTI)?denies.?Nephropathy?denies.?sex trans dis (STD)?denies.?Prostate?denies.?Musculoskeletal:?Hammertoes?denies.?Bunions?denies.?Back Pain?denies.?Muscle Cramps/ Resting?denies.?Muscle cramps / walking?denies.?Generalized aches and pains?denies.?Weakness?denies.?Integ.:?Alejo?denies.?Scars?denies.?Corns/calluses?denies.?Ingrown nails?denies.?Painful nails?denies.?Open Sores?denies.?Rashes?denies.?Neurologic:?Difficulty sleeping?denies.?Brain disorder?denies.?Numbness?admits.?Balance t rouble?denies.?Confusion?denies.?Fainting/blackouts?denies.?Tingling?admits.?Vinh mors?denies.? * Medical History:? * Surgical History:?spinal fus ion titanium plates HT R 4,5 DIAB P/B 11/25/23 * Hospitalization/Major Diagno stic Procedure:?[facility] ER- back pains, stomach pains 02/2025 * Family History:?Mother: miguel a mccormick?Father: , diagnosed with Diabetic - NIDDM.?Siblings: diagnosed with Other malignant neoplasm of unspecified site, Diabetic - NIDDM.? * Social History:?Tobacco Use:?Tobacco Use/Smoking?Are you a:?current smoker ?How often do you smoke cigarettes??every day ?How many cigarettes a day do you smoke??11-20 ?How soon after you wake up do you smoke your first cigarette??31-60 minutes ?Tobacco use other than smoking?Are you an other tobacco user??No ???Miscellaneous:?Caffeine: yes, 2-3 cups per day. ?Children: yes. ?Exercise: no, walking. ?Marital status: . ?Occupation: Disabled. * Medications:?TakingSimvastat in 40 MG Tablet 1 tablet in the evening Orally Once a day Lisinopril 40 MG Tablet 1 tablet Orally Once a day Gabapentin 400 MG Capsule 1 capsule Orally 3 times a day Tresiba metFORMIN HCl 500 MG Tablet 1 tablet with a meal Orally Once a day Latanoprost Ibuprofen 800 MG Tablet 1 tablet with food or milk as needed Orally every 8 hrs Percocet 5-325 MG Tablet 1 tablet as needed Orally every 4-6 hrs as needed for breakthrough pain Taking Simvastatin 40 MG Tablet 1 tablet in the evening Orally Once a day Taking Lisinopril 40 MG Tablet 1 tablet Orally Once a day Taking Gabapentin 400 MG Capsule 1 capsule Orally 3 times a day Taking Tresiba Taking metFORMIN HCl 500 MG Tablet 1 tablet with a meal Orally Once a day Taking Latanoprost Taking Ibuprofen 800 MG Tablet 1 tablet with food or milk as needed Orally every 8 hrs Taking Percocet 5-325 MG Tablet 1 tablet as needed Orally every 4-6 hrs as needed for breakthrough pain Not-Taking/PRNAspir-81 Medication List reviewed and reconciled with the patientNot-Taking/PRN Aspir-81 Medication List reviewed and reconciled with the patient * Allergies:?Augmentin: rash - Criticality Highyes[Allergies Verified] Objective: * Vitals:?Ht: 5ft8in, Wt:186, BMI:28.28, Shoe size: 10.5W, BP:121/77mm Hg, BS: not taken, Ht-cm: 172.72 cm, Wt-k.37 kg. * ???Past Orders: ???Lab:HEMOGLOBIN A1C (GLYCO HEMOGLOBIN) (Order Date - 02/14/2025) (Collection Date & Time - 02/14/2025 02:50 PM) ? Value Reference Range ?HEMOGLOBIN A1C % (HH) 6.7 * Examination: ???Ophthalmology Referral: ?DIABETES EYE EXAM?Procedure Performed:?Yes ?Date of Exam Performed?12/22/2024 ?Findings of Diabetic Eye Exam:?no retinopathy?Neurological: ?SENSORY:? Neurological exam demonstrates, reduced light touch sensation, reduced sharp/dull pin prick discrimination , B/L, 5.07 monofilament test performed at plantar aspects of 5 varied sites per foot shows sensation, reduced , B/L.?Dermatologic: ?SKIN FINDINGS:?Skin exam reveals normal color, texture, elasticity, and turgor. There are no masses, nor excrescences. The interspaces are clear, B/L.?Vascular: ?DP PULSES (B):?3/4, B/L.?PT PULSES (B):?3/4, B/L.?CAPILLARY FILL TIME:?immediate, all digits, B/L.?TROPHIC CONDITION-TEXTURE/ELASTICITY/TURGOR/HAIR GROWTH (B):?normal, B/L.?TEMPERTURE GRADIENT (C):?normal, warm to cool, proximal to distal, B/L, B/L.?PIGMENTATION:?normal, B/L.?Orthopedic: ?MUSCLE STRENGTH:?5/5 all groups in a symmetrical fashion, B/L.?DIGITAL DEFORMITIES:?Digital contracture, PIPJ, 2-3 B/L, reducible with WB, or to push-up test, no over, nor underlapping.?FOOTWEAR EVALUATION:?Non-Diabetic with no OT.?General Examination: ?GENERAL APPEARANCE:?Reveals a pleasant, alert, well nourished, well- developed, well hydrated individual, who demonstrates proper attention to hygiene/body habitus, and is in no acute distress, Pt serves as own historian for office visit today.?ORIENTED:?person, place, and time.?FOOT EXAM:?Lower Extremity Neurological Exam performed:?Yes Date ?Visual exam of foot performed:?Yes ?Date?03/07/2025 ?Footwear Evaluation?Footwear Evaluation performed:?Yes??? Assessment: * Assessment: 1.?Other hammer toe(s) (acqu ired), right foot - M20.41???Specify :Chronic problem, Worse (4),Rx Management (4)???2.?Type 2 diabetes mellitus with diabetic polyneuropathy - E11.42 (Primary) ??3.?Other hammer toe(s) (acquired), left foot - M20.42???Specify :Chronic problem, Worse (4),Rx Management (4)??? Plan: * Treatment: * Procedure Codes:? * Preventive Medicine:? ??Counseling:?Discussion:?-13: Office or other outpatient visit for the evaluation and management of an established patient, which required a medically appropriate history and/or examination and LOW level of DECISION MAKING for: 1 STABLE ACUTE UNCOMPLICATED PROBLEM, 2 OR MORE MINOR PROBLEMS, OR 1 STABLE CHRONIC PROBLEM, THAT POSE(S) A LOW RISK FOR MORBIDITY/MORTALITY. The visit on the day of the encounter encompassed interpreting the data and educating the patient as to the nature of their condition, treatment options available according to their individual PMH, meds, allergies, and overall health/living conditions, as well as any potential risks or complications that may occur from a failure to adhere to, and participate in, the recommended course of therapy. The discussion included a complete verbal, and/or written explanation of the examination results, any x-rays taken, the proposed diagnosis, and outline of the treatment plan. A schedule for future care needs was also explained. The patient verbalized an understanding of the instructions at this time and agreed to be an active participant in their treatment. If the patient should think of any questions or concerns after the visit, I have encouraged the patient to call the office.?Neuritis/Neuropathy:?The patient was counseled on the diagnosis, possible etiologies (including mechanical stress, injury, entrapment, chemotherapy, diabetes, vertebral disk herniation if hx), treatment options, and importance for adherence to recommendations in order to address the patients Neuritis/Neuropathy. The advantages and disadvantages re: Accomidative mechanical support/offloading, Topical vs PO analgesics including aspercream/Voltaren gel/Lidoderm patches/Neurontin/Lyrica along with their potential side effects were discussed with the patient to their satisfaction. Also discussed the use of therapeutic injectable cortisone if needed. Surgical treatment, if considered an option, was discussed as well. If surgery is warranted, we discussed the potential successful outcomes as well as the possible complications such as failure, painful scar, permanent tingling/numbness/neuralgea/or intractable pain. Patient questions re: medication use, dosage, and possible side effects and drug interactions were reviewed and the answers to each understood. If the condition worsens, the patient was instructed to contact the office for an appointment. The patient verbally confirmed a full understanding of the above.?Shoe Gear Counseling:?SHOE Rx - The patient was counseled in great detail on their muscoloskeletal foot and toe deformities which coincided with the dermatological presentations visualized on exam. We discussed how their deformities put the integrity of their feet at risk for potential pedal complications which makes the accomidative diabetic shoes and cutomizable inserts medically necessary. We discussed the different shoe and insert treatment types and options, as well as the important advantages for adhering to regularly wearing these accomidative devices daily. The patient was made aware of the fact that a failure to abide by these recommedations may be deleterious to their foot health as they are able to prevent many pedal complications such as skin irritation, skin ulceration, infection, and even loss of toe/foot/leg/or life. Time was also spent with the patient dispensing and discussing proper diabetic footcare techniques including daily skin moisturization, daily foot inspection for any interruption in skin integrity including open lesions, or sign of infection such as redness/malodor/drainage/swelling. Also discussed and recommended were procedures regarding daily shoe inspection for the presence of internal foreign bodies as well as any visualized irregular shoe or insert wear. Patient questions re: shoes, inserts, and self foot inspections were answered to their satisfaction as the patient verbally confirmed a full understanding of the above information. , Patient DEFERS recommended Extra Depth Orthopedic pressure-accommodative shoes against medical advice.? ??Screening/Special Tests:?Fall Risk?Screening:?No falls in the past year ?FALLS: Screening for Future Fall Risk?Have you had any falls with injury in the past year??No * Follow Up:?1 Year * Images: * Sign off status: Completed true * Provider:?Virginia Borges DPM Date:? Generated for Nura fisher/Ella/Palmiraitting on:?03/17/2025 10:56 AM EDT History and Physical Notes * HPI (History of Present Illness) Category Sub-Category Detail Notes Category Not es Toe pain Location: B/L feet Duration: several years Course: worse Aggravated by: shoes, any pressure Treatments: change in shoes At Risk footcare Pt States Last PCP Visit: Date: 5 Examination Category Sub-Category Detail Notes Category Not es Neurological SENSORY: Neurological exa m demonstrates, reduced light touch sensation, reduced sharp/dull pin prick discrimination , B/L, 5.07 monofilament test performed at plantar aspects of 5 varied sites per foot shows sensation, reduced , B/L Dermatologic SKIN FINDINGS: Skin exam reveal s normal color, texture, elasticity, and turgor. There are no masses, nor excrescences. The interspaces are clear, B/L Orthopedic FOOTWEAR EVALUATION: Non-Diabetic with no OT DIGITAL DEFORMITIES: Digital contracture , PIPJ, 2-3 B/L, reducible with WB, or to push-up test, no over, nor underlapping MUSCLE STRENGTH: 5/5 all groups in a symmetrical fashion, B/L General Examination GENERAL APPEARANCE: Reveals a pleasant, alert, well nourished, well-developed, well hydrated individual, who demonstrates proper attention to hygiene/body habitus, and is in no acute distress, Pt serves as own historian for office visit today FOOT EXAM: Lower Extremity Neurological Exa m performed:: Yes Date Visual exam of foot performed:: Yes Date: 03/07/2025 ORIENTED: person, place, and t klarissa Footwear Evaluation Footwear Evaluation performe d:: Yes Ophthalmology Referral DIABETES EYE EXAM Procedure Perform ed:: Yes ?Date of Exam Performed: 12/22/2024 Findings of Diabetic Eye Exam:: no retin opathy Vascular DP PULSES (B): 3/4, B/L PT PULSES (B): 3/4, B/L CAPILLARY FILL TIME: immediate, all digi ts, B/L TEMPERTURE GRADIENT (C): normal, warm to cool, proximal to distal, B/L, B/L TROPHIC CONDITION-TEXTURE/ELASTICITY/TURGOR/HAIR GROWTH (B): normal, B/L PIGMENTATION: normal, B/L
== END 2025-03-17 10:27 | disposition home or self-care (01) ==
LOC: HO.PMC 09:57
PROVIDERS: PCP Internal Medicine; Visit Provider Internal Medicine
DX: M54.16 Radiculopathy, lumbar region (principal); M47.816 Spondylosis without myelopathy or radiculopathy, lumbar region
CPT/HCPCS: 99204

== ENCOUNTER → 2025-03-17 09:56 | Outpatient (BNVA) | payer OTHER, SELFPAY | PROVIDERS: PCP Internal Medicine; Visit Provider Internal Medicine ==

== ENCOUNTER 2025-05-02 10:05 | Outpatient (AMB) | payer OTHER, SELFPAY ==
[2025-05-02 10:18] VITALS: BP 142/74; PULSE 86; O2SAT 96
--- NOTE | 2025-05-02 10:18 | MHC.PC.OV ---
Vital Signs 05/02/25 10:18 Weight 189 lb BP 142/74 H Blood Pressure Location Lt brachial Position Sitting Pulse 86 Pulse Source Pulse Oximeter Pulse Oximetry (%) 96 Oxygen Delivery Method Room Air Intake Visit Reasons: DM Composite Technician Required: No Accompanied by: Self / Same As Patient Allergies amoxicillin [From Augmentin] Adverse Reaction (Intermediate, Verified 05/02/25 10:18) Rash clavulanic acid [From Augmentin] Adverse Reaction (Intermediate, Verified 05/02/25 10:18) Rash dulaglutide [From Trulicity] Adverse Reaction (Intermediate, Verified 05/02/25 10:18) Diarrhea Medication List - Last Reconciled 05/02/25 by Verenice Park MD blood-glucose sensor (FreeStyle Roberto 3 Sensor device) DIRECTED empagliflozin (Jardiance) 10 mg PO DAILY gabapentin 300 mg PO TID 90 days glucagon 3 mg/actuation (Baqsimi) 3 mg intranasal ONCE hydrochlorothiazide 25 mg PO QAM ibuprofen 800 mg PO Q8H insulin degludec (Tresiba FlexTouch U-100 insulin) 40 units (0.4 mL) subcut DAILY latanoprost 0.005% 1 drp ophthalmic (eye) BEDTIME lisinopril 30 mg PO DAILY 90 days metformin 1,000 mg (2 x 500 mg) PO BID ondansetron 4 mg PO DAILY PRN 5 days pen needle, diabetic (Comfort EZ Pen [place]) As directed pen needle, diabetic (BD Rowena 2nd Gen Pen Needle) As directed once a day simvastatin 40 mg PO QPM 90 days travoprost 0.004% (Travatan Z) 1 drp ophthalmic (eye) QPM Tobacco use date assessed: 05/02/25 Dental Screening Dental Screen Date: 05/02/25 Did you have a dental visit in the last 12 months?: Yes Did you have a dental problem in the last 6 months where you did not have access to dental care?: No Was dental information given to patient?: Patient has dentist [facility] Medical History Type 2 diabetes mellitus with hyperglycemia (~2000) Colon cancer screening Nicotine dependence, cigarettes, uncomplicated Generalized anxiety disorder Glaucoma Thoracic radiculopathy due to degenerative joint disease of spine Anxiety Hepatitis C antibody positive in blood Hepatitis B Hypercholesterolemia Hypertension Surgical History History of cervical spinal surgery History of fusion of cervical spine Family History Father Hypertension Mother Hypertension Maternal Uncle Pancreatic cancer Sister Substance abuse Brother Substance abuse Bladder cancer Social History Household Members: Spouse Household Members Other:: Housing: House Alcohol intake: never Patient Tobacco Use Status: Current everyday Tobacco user Tobacco use type: Cigarette Cigarette Packs Per Day: 1 Years Smoked: (onset 12yo, 1ppd x 45yrs, 40+PYH) e-Cigarette/Vaping Use: Never Used Second Hand Smoke Exposure: No service: No Current occupational status: unemployed Cognitive needs: No Hearing needs: No Vision needs: Yes Questionnaire PHQ-9 Over the last 2 weeks, how often have you been bothered by any of the following problems? 1. Little interest or pleasure in doing things: not at all 2. Feeling down, depressed, or hopeless: not at all 3. Trouble falling or staying asleep, or sleeping too much: not at all 4. Feeling tired or having little energy: not at all 5. Poor appetite or overeating: not at all 6. Feeling bad about yourself - or that you are a failure or have let yourself or your family down: not at all 7. Trouble concentrating on things, such as reading the newspaper or watching television: not at all 8. Moving or speaking so slowly that other people could have noticed. Or the opposite - being so fidgety or restless that you have been moving around a lot more than usual: not at all 9. Thoughts that you would be better off or of hurting yourself in some way: not at all Total score: 0 Source: Developed by Drs. Giacomo Lira, Kathleen Irizarry, Luis E Workman and colleagues, with an educational christin from [employer]. Thrive Questionnaire Date Thrive assessed: 05/02/25 I am a: Patient What is your living situation today?: I have a steady place to live Within the past 12 months, did the food you bought not last and you didn't have the money to get more?: I choose not to answer this question Within the past 12 months, did you worry whether your food would run out before you got money to buy more?: I choose not to answer this question Do you have trouble paying for medicines?: I choose not to answer this question Do you have trouble getting transportation to medical appointments?: I choose not to answer this question Do you have trouble paying your heating and electricity bill?: No Do you have trouble taking care of your child, family member or friend?: No Do you have trouble with day-to-day activities such as bathing, preparing meals, shopping, managing finances, etc.?: Yes Are you currently unemployed and looking for a job?: No Are you interested in more education?: No Please select the resources that you would like help with: None Currently or been in a relationship where the following occur: No concerns reported THRIVE Score: 0 AUDIT C Alcohol Use Questionnaire (AUDIT-C) 1. How often do you have a drink containing alcohol?: Never 3. How often do you have six or more drinks on one occasion?: Never Total Score: 0 TARYN-7 AMB Questionnaire TARYN-7 Date TARYN - 7 assessed: 05/02/25 Feeling nervous, anxious, or on edge: 0 = Not at all Not being able to stop or control worryin = Not at all Worrying too much about different things: 0 = Not at all Trouble relaxin = Not at all Being so restless that it is hard to sit still: 0 = Not at all Becoming easily annoyed or irritable: 0 = Not at all Feeling afraid as if something awful might happen: 0 = Not at all Total TARYN-7 score (0-4 normal; 5-9 mild; 10-14 moderate; 15-21 severe): 0 Source: Developed by Drs. Giacomo Lira, Kathleen Irizarry, Luis E Workman and colleagues, with an educational christin from [employer]. Physical exam (Primary Care) Vital Signs: Last Vital Signs Pulse 86 05/02/25 10:18 BP 142/74 H 05/02/25 10:18 Pulse Ox 96 05/02/25 10:18 Oxygen Delivery Method Room Air 05/02/25 10:18 Tobacco/Smoking Status: Tobacco use Status Tobacco use date assessed 05/02/25 05/02/25 10:27 Patient Tobacco Use Status Current everyday Tobacco 05/02/25 10:27 Tobacco use type Cigarette 05/02/25 10:27 e-Cigarette/Vaping Use Never Used 05/02/25 10:27 PHQ-9: PHQ-9 Score PHQ-9: Total score 0 05/02/25 10:27 Thrive Assessment: Date of Thrive Assessment Date Thrive assessed 05/02/25 05/02/25 10:27 Currently or been in a relationship where the following occur: No concerns reported Const General: alert; No acute distress Eyes Conjunctivae: conjunctivae normal Resp Auscultation: clear to auscultation bilaterally Cardio Rate: regular rate Rhythm: regular rhythm GI Inspection: Yes normal to inspection Extrem General: Yes normal to inspection and No edema Results AMB Hemoglobin A1c AMB Hemoglobin A1c 9.4 % Last Edit by NICOLE Gold on 05/02/25 10:33 Coding Level of Care Code Est Pt Level 4 (79975) Complex EM visit Add On G2211 Diagnoses Diverticular disease K57.90 Type 2 diabetes mellitus with hyperglycemia, with long-term current use of insulin E11.65; Z79.4 Diabetes mellitus care home insulin use: with care home use Pulmonary nodule R91.1 Essential hypertension I10 Hypertension type: essential hypertension Hypercholesterolemia E78.00 Nicotine dependence, cigarettes, uncomplicated F17.210 Hepatic steatosis K76.0 Assessment & Plan Assessment & Plan (1) Diverticular disease: Code(s): K57.90 - Diverticulosis of intestine, part unspecified, without perforation or abscess without bleeding Category: Medical Plan: Patient is given information to avoid getting constipated and diverticular disease primary (2) Type 2 diabetes mellitus with hyperglycemia: Onset Date: ~1999 Comment: [place] eye exam Code(s): E11.65 - Type 2 diabetes mellitus with hyperglycemia Category: Medical Qualifiers: Diabetes mellitus joint terminal attack controller insulin use: with care home use Qualified Code(s): E11.65 - Type 2 diabetes mellitus with hyperglycemia; Z79.4 - senior living (current) use of insulin Plan: Decrease the amount of carbohydrate intake, pasta, bread, rice and potatoes are all sugar and that is aside from all the sweet stuff, remember that fruits are good but they are Sweet also. Hemoglobin A1c goal of less than 6.5 patient is under endocrinology on [facility]. Hemoglobin A1c jordyn up after stopping the Tresiba since the patient has been having side effects of diarrhea from this. Concern that the numbers are high this time adding Jardiance (3) Pulmonary nodule: Comment: 05/08/23 initial LDCT = Pleural-based LLL 0.8 x 0.4 cm nodule, December Code(s): R91.1 - Solitary pulmonary nodule Category: Medical Plan: Patient enrolled in the lung cancer screening program (4) Hypertension: Code(s): I10 - Essential (primary) hypertension Category: Medical Qualifiers: Hypertension type: essential hypertension Qualified Code(s): I10 - Essential (primary) hypertension Plan: Continue with blood pressure medication. Decrease salt intake and exercise on lisinopril 30 mg once a day hydrochlorothiazide 25 mg once (5) Hypercholesterolemia: Code(s): E78.00 - Pure hypercholesterolemia, unspecified Category: Medical Plan: Avoid fried foods, chicken skin, eggs, butter margarine, pastries and meat. Be it pork or beef they have a lot of cholesterol patient on simvastatin 40 mg once a day LDL goal of less than 100 and triglyceride of less than 150 (6) Nicotine dependence, cigarettes, uncomplicated: Comment: (current smoker - onset 12yo, 1ppd x 45yrs, 40+PYH) Code(s): F17.210 - Nicotine dependence, cigarettes, uncomplicated Category: Medical Plan: Patient is strongly advised to stop smoking summation point (7) Hepatic steatosis: Comment: (Mild hepatic steatosis 12/2021 [facility]) December 2023 Code(s): K76.0 - Fatty (change of) liver, not elsewhere classified Category: Medical Plan: Low-fat diet and exercise Plan History of Present Illness The patient is a 59-year-old male presenting for a follow-up visit. The patient has a history of diabetes mellitus type 1, managed under endocrinology with a hemoglobin A1c goal of less than 6.5%. He is currently on Tresiba 40 units, but his recent hemoglobin A1c was 9.4%, indicating poor glycemic control. The patient previously tried Trulicity, which caused diarrhea, leading to its discontinuation. The patient has hepatic steatosis and a history of nephrolithiasis. He also suffers from generalized anxiety disorder and is a smoker, which complicates his overall health management. The patient has essential hypertension, currently managed with lisinopril 30 mg and hydrochlorothiazide 25 mg daily. There was a discussion about increasing lisinopril to 40 mg, but the patient experienced adverse effects previously at this dose. The patient has hypercholesterolemia, managed with simvastatin 40 mg daily, with an LDL goal of less than 100 mg/dL and triglycerides less than 150 mg/dL. The patient reports chronic low back pain, last evaluated in February 2025, with a recommendation for physical therapy and an MRI of the lumbar spine. He has seen pain management and is up to date with podiatry care. In January 2025, a CT scan revealed colonic diverticulosis with mild bowel wall thickening of the sigmoid colon and mild acute diverticulitis. The patient was advised to avoid constipation to manage diverticular disease. Health Maintenance - Colon cancer screening with stool test up to date as of November 2023 - Complete blood work with cholesterol testing in October 2024, LDL of 65 mg/dL - Enrolled in cancer screening program - Advised to avoid constipation to manage diverticular disease - Strongly advised to stop smoking - Low-fat diet and exercise recommended Social History - Tobacco use disorder: Patient is a smoker Review of Systems Physical Exam Results - CT scan in January 2025 showed colonic diverticulosis with mild bowel wall thickening of the sigmoid colon and mild acute diverticulitis - Complete blood work with cholesterol testing in October 2024, LDL of 65 mg/dL Plan The patient will continue management of diabetes mellitus type 1 with Tresiba 40 units, and a new prescription for Jardiance will be trialed to improve glycemic control. The patient is advised to monitor blood glucose levels closely and follow up with endocrinology for further management. For essential hypertension, the patient will continue with lisinopril 30 mg and hydrochlorothiazide 25 mg daily, with a plan to monitor blood pressure closely. The patient is advised to consider lifestyle modifications, including a low-fat diet and regular exercise, to aid in blood pressure control. The patient will continue simvastatin 40 mg daily for hypercholesterolemia, with a goal to maintain LDL levels below 100 mg/dL and triglycerides below 150 mg/dL. For chronic low back pain, the patient is advised to continue with physical therapy and consider an MRI of the lumbar spine if symptoms persist. Pain management follow-up is recommended as needed. The patient is advised to avoid constipation to manage diverticular disease and to follow up with gastroenterology if symptoms worsen. The patient is strongly advised to stop smoking to improve overall health outcomes. Patient was informed and verbally consented to the use of an ambient scribe for clinic note documentation during this visit. Discussion Notes During the visit, I discussed with the patient the management of diabetes mellitus type 1, emphasizing the importance of glycemic control and introducing Jardiance as a new treatment option. We reviewed the current management of essential hypertension and hypercholesterolemia, highlighting the need for lifestyle modifications to support medication efficacy. I advised the patient on the importance of continuing physical therapy for chronic low back pain and considering further imaging if necessary. We also discussed the management of diverticular disease, focusing on dietary modifications to prevent constipation. I strongly advised the patient to stop smoking to improve overall health and reduce the risk of complications from existing conditions. Patient Instructions - Continue taking Tresiba 40 units daily and start Jardiance as prescribed. 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 - Continue lisinopril 30 mg and hydrochlorothiazide 25 mg daily for blood pressure management. - Follow a low-fat diet and engage in regular exercise to help control blood pressure and cholesterol levels. - Continue simvastatin 40 mg daily to maintain cholesterol levels. - Attend physical therapy sessions for back pain and consider an MRI if pain persists. - Avoid constipation to manage diverticular disease and consult gastroenterology if symptoms worsen. - Stop smoking to improve overall health. Orders: Orders AMB Hemoglobin A1c Today Z13.9 - Encounter for screening, unspecified Medications: New empagliflozin (Jardiance) 10 mg PO DAILY 30 tabs 3RF E11.65 - Type 2 diabetes mellitus with hyperglycemia, Z79.4 - buttermaker continuous churn (current) use of insulin Changed From insulin degludec (Tresiba FlexTouch U-100 insulin) 32 units (0.32 mL) subcut DAILY 15 mL 12RF E10.9 - Type 1 diabetes mellitus without complications To insulin degludec (Tresiba FlexTouch U-100 insulin) 40 units (0.4 mL) subcut DAILY 15 mL 12RF E10.9 - Type 1 diabetes mellitus without complications
--- OUTSIDE RECORDS SUMMARY | 2025-05-02 11:29 | XMS_ITS ---
Author Organization [facility] Address [address] [place] [address] Care Team Providers Care Lithographic Artist Name Role Phone Verenice Park Primary Care Provider Nicholas Kee Unavailable [phone] Virginia Borges Unavailable [phone] Medications Medication SIG (Take, Route, Frequency, Duration) [...] Active Encounters [facility] [address] [place] [address] [facility]/23/2024 Virginia Borges Plan Of Treatment Next Appt Details Provider Name:Virginia knowles, 02/20/2026 10:00:00 AM, [address] [place], [address], Progress Notes * Sarthak NUNEZDOB: [birth year] (59 yo M)Acc No.[id number]:12/23/2024 Progress Note Patient:Sarthak CAAL Provider:?Virginia Borges DPM :1965???Age:59 Y???Sex:Male Ga e:12/23/2024 Address:[address] [place], [place] [id number] Pcp:Verenice Park Subjective: * Chief Complaints: * [...] Borges DPM Date:?05/2025 Generated for Nura fisher/Ella/eTmamadousmitting on:?05/02/2025 11:29 AM EDT
== END 2025-05-02 10:49 | disposition home or self-care (01) ==
LOC: HO.HMCH 10:06
PROVIDERS: PCP Internal Medicine; Visit Provider Internal Medicine
DX: K57.90 Diverticulosis of intestine, part unspecified, without perforation or abscess without bleeding (principal); E11.65 Type 2 diabetes mellitus with hyperglycemia; Z79.4 Long term (current) use of insulin; R91.1 Solitary pulmonary nodule; I10 Essential (primary) hypertension; E78.00 Pure hypercholesterolemia, unspecified; F17.210 Nicotine dependence, cigarettes, uncomplicated; K76.0 Fatty (change of) liver, not elsewhere classified; Z13.9 Encounter for screening, unspecified

== ENCOUNTER → 2025-05-02 10:05 | Outpatient (BNVA) | payer OTHER, SELFPAY | PROVIDERS: PCP Internal Medicine; Visit Provider Internal Medicine | DX: E11.65 Type 2 diabetes mellitus with hyperglycemia (principal); K57.90 Diverticulosis of intestine, part unspecified, without perforation or abscess without bleeding; R91.1 Solitary pulmonary nodule; I10 Essential (primary) hypertension; E78.00 Pure hypercholesterolemia, unspecified; K76.0 Fatty (change of) liver, not elsewhere classified; F17.210 Nicotine dependence, cigarettes, uncomplicated; Z79.4 Long term (current) use of insulin | CPT/HCPCS: 83036; 96127 ==

== ENCOUNTER 2025-06-23 09:36 | Outpatient (AMB) | payer OTHER, SELFPAY ==
--- OUTSIDE RECORDS SUMMARY | 2024-12-23 07:00 | XMS_ITS ---
Author Organization [facility] Address [address] [place] [address] Care Team Providers Care Supervisor Particleboard Name Role Phone Verenice Park Primary Care Provider Nicholas Kee Unavailable [phone] Virginia Borges Unavailable [phone] Medications Medication SIG (Take, Route, Frequency, Duration) [...] Active Encounters Encounter Location Date Provider Diagnosis [facility] [address] [place] [address] 12/23/2024 Virginia Borges Plan Of Treatment Next Appt Details Provider Name:Virginia knowles, 02/20/2026 10:00:00 AM, [address] [place], [address], Progress Notes * Sarthak NUNEZDOB: 7 (59 yo M)Acc No.[id number]:12/23/2024 Progress Note Patient: Sarthak FRAGA Provider: Naheed Borges DPM :1965 A ge:59 Y S ex:Male Date:12/23/2024 Address:[address] [place] [address], [id number] Pcp:Verenice Park Subjective: * Chief Complaints: * [...] Pending * Provider: Naheed Borges DPM Date: 0 12/23/2024 Generated for Nura fisher/Ella/Fouzia on: 0 06/23/2025 09:40 AM EDT
[2025-06-23 09:38] VITALS: BP 146/76; PULSE 78; BMI 25.4
--- NOTE | 2025-06-23 09:38 | A.OFFVIS_ITS ---
Vital Signs 06/23/25 09:38 Height 6 ft Weight 186 lb 15.232 oz BMI 25.4 BP 146/76 H Blood Pressure Location Lt brachial Position Sitting Pulse 78 Intake Visit Reasons: colon screening Intake Note: New patient in office today for colonoscopy screening. CC: Patient denies having any GI symptoms today. He has never had a colonoscopy done before. 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 He is referred by Verenice Park. PMX Hypertension High cholesterol Smoker Diabetes Lumbar degenerative disc disease with spondylosis History of diverticulitis [place] Anxiety Hepatitis C positive Hepatitis-B positive * SURGICAL HISTORY Cervical find surgery * ALLERGIES AUGMENTIN TRULICITY * Simphatic LABS: Laboratory Tests 02/11/25 16:16 WBC 10.8 Hgb 13.4 L Hct 37.4 L MCV 83.9 MCH 30.0 Plt Count 213 Estimated GFR > 60 Total Bilirubin 0.2 AST 21 ALT 24 Alkaline Phosphatase 49 Laboratory Tests 05/02/25 10:18 Hgb A1c (Clinic) 9.4 H Laboratory Tests 09/02/18 09/13/18 11:05 14:30 Hep Bs Antigen NEGATIVE Hep Bs Antibody REACTIVE Hep B Core Total Ab REACTIVE Hepatitis C Ab (EIA) REACTIVE H HCV RNA (PCR) IUs/ml <15 HCV RNA PCR log IUs/ml <1.18 TODAY'S VISIT He is impatient to get going. This is his first colonoscopy. He had recent bowel problems but this was related to Trulicity and Jardiance that caused him severe side effects. He is no longer on these medications. He denies any cardiac or respiratory problems. There are no prior problems with anesthesia or sedation. He has a history of hepatitis-B and C infections with no active antigen and a negative viral load. There is no known family history of colon cancer or polyps. [facility] Medical History (Updated 06/23/25 @ 10:46 by ASHLEY Tapia) Type 2 diabetes mellitus with hyperglycemia (~1999) Colon cancer screening Nicotine dependence, cigarettes, uncomplicated Generalized anxiety disorder Glaucoma Thoracic radiculopathy due to degenerative joint disease of spine Anxiety Hepatitis C antibody positive in blood Hepatitis B Hypercholesterolemia Hypertension Surgical History History of cervical spinal surgery History of fusion of cervical spine Family History Father Hypertension Mother Hypertension Maternal Uncle Pancreatic cancer Sister Substance abuse Brother Substance abuse Bladder cancer Social History Household Members: Spouse Household Members Other:: Housing: House Alcohol intake: never Patient Tobacco Use Status: Current everyday Tobacco user Tobacco use type: Cigarette Cigarette Packs Per Day: 1 Years Smoked: (onset 12yo, 1ppd x 45yrs, 40+PYH) e-Cigarette/Vaping Use: Never Used Second Hand Smoke Exposure: No service: No Current occupational status: unemployed Cognitive needs: No Hearing needs: No Vision needs: Yes Review of Systems Const Denies fatigue, Denies fever(s), Denies night sweats, Denies poor appetite and Denies weight loss ENT Reports Normal hearing present, Denies dysphagia, Denies odynophagia, Denies throat swelling and Denies tongue swelling Card Reports no additional complaints Resp Reports no additional complaints GI Details: Denies abdominal pain, Denies melena, Denies bloating, Denies hematochezia, Denies constipation, Denies GI cramping, Denies dysphagia, Denies excessive flatus, Denies early satiety, Denies heartburn, Denies diarrhea, Denies nausea, Denies odynophagia, Denies vomiting and Denies hematemesis Skin/Breast Denies pruritus, Denies lesions, Denies rash and Denies jaundice Neuro Reports Normal hearing present and Denies Abnormal speech present Endo Denies fatigue Aller/Immun Denies throat swelling and Denies tongue swelling Physical Exam Vital Signs: Last Vital Signs Pulse 78 06/23/25 09:38 BP 146/76 H 06/23/25 09:38 BMI result Body Mass Index 25.4 Const General: cooperative, no acute distress, well developed and well groomed Nutritional Appearance: average body habitus and well nourished Orientation/consciousness: oriented to person, oriented to place and oriented to time Limitations: No language barrier HEENT Head: Yes normocephalic and Yes atraumatic Eyes General: appearance normal, both eyes and all related structures Pupils: Equal, round and reactive pupils present Neck Neck: Yes normal visual inspection and Yes no lymphadenopathy Thyroid: Thyroid normal Resp Effort & Inspection: normal respiratory effort and able to speak in complete sentences Auscultation: wheezes inspiratory wheezes and upper bilaterally Cardio Rate: regular rate Rhythm: regular rhythm Heart sounds: Normal, physiologic split S2 sound present Peripheral pulses: radial pulses present and posterior tibial pulses present GI Inspection: No distended and No Abdominal panniculus present Palpation (GI): Soft to palpation, nontender, no guarding, not rigid and No hepatosplenomegaly present Percussion: Yes normal to percussion Auscultation: normal bowel sounds Rectal Exam - Male: Yes deferred Skin General skin exam: no rashes or lesions noted, turgor normal, skin not dry, no jaundice, No spider nevi and no striae Rashes: no rashes Nails: normal Neuro General: oriented to person, oriented to place and oriented to time Cranial nerves: Yes Equal, round and reactive pupils present and Yes Normal hearing present Speech: No Abnormal speech present Extrem General: Yes normal to inspection, No clubbing, No cyanosis and No edema Psych Appearance: grossly normal and well kempt Mental Status: mental status grossly normal Speech and movement: Normal speech and movement present Affect: Anxious affect present Attitude: Guarded attititude/behavior present Thought process: not confabulating and Perseverating thought process present Thought content: Normal thought content present Insight: Limited insight present (Psych) Judgement: Limited judgement present (Psych) Assessment & Plan Assessment & Plan (1) Pre-op examination: Code(s): Z01.818 - Encounter for other preprocedural examination Category: Medical (2) Nicotine dependence, cigarettes, uncomplicated: Comment: (current smoker - onset 12yo, 1ppd x 45yrs, 40+PYH) Code(s): F17.210 - Nicotine dependence, cigarettes, uncomplicated Category: Medical (3) Hepatitis B: Code(s): B19.10 - Unspecified viral hepatitis B without hepatic coma Category: Medical (4) Hepatitis C antibody positive in blood: Code(s): R76.8 - Other specified abnormal immunological findings in serum Category: Medical Plan He is impatient to get going. This is his first colonoscopy. He had recent bowel problems but this was related to Trulicity and Jardiance that caused him severe side effects. He is no longer on these medications. He denies any cardiac or respiratory problems. There are no prior problems with anesthesia or sedation. He has a history of hepatitis-B and C infections with no active antigen and a negative viral load. There is no known family history of colon cancer or polyps. Orders: Orders Colonoscopy - GI Use Only Today F17.210 - Nicotine dependence, cigarettes, uncomplicated, Z01.818 - Encounter for other preprocedural examination Medications: New peg 3350-electrolytes 236-22.74-6.74 -5.86 gram (Golytely) until fecal effluent is clear; do not exceed a total volume of 2,000 mL 240 mL PO Q10M 4,000 mL 0RF 1 day Z12.11 - Encounter for screening for malignant neoplasm of colon bisacodyl (Dulcolax (bisacodyl)) 10 mg (2 x 5 mg) PO BEDTIME 4 tabs 0RF 2 days Coding Level of Care Code New Pt Level 3 (68599) Diagnoses Pre-op examination Z01.818 Nicotine dependence, cigarettes, uncomplicated F17.210 Hepatitis B B19.10 Hepatitis C antibody positive in blood R76.8
--- OUTSIDE RECORDS SUMMARY | 2025-06-23 09:40 | XMS_ITS | Clinical Summary ---
Author Organization [facility] Address [address] [place] [address] Care Team Providers Care Market Analyst Name Role Phone Verenice Park MD Primary Care Provider [phone] Surgical History Surgery Date Site/Laterality Comments NECK SURGERY 03/31/2019 PROCEDURE: HISTORICAL NECK SURGERY; COMMENT: C5-6 C6-7 acdf NECK SURGERY 12/2017 PROCEDURE: HISTORICAL NECK SURGERY; COMMENT: C5-6 C6-7 right foraminotomy Medical History Medical History Date Comments Diabetes mellitus type 2, co ntrolled, with complications (CMS/HCC V24, CMS/HCC V28) DX:Diabetes mellitus type 2, controlled, with complications ([facility]) Essential hypertension DX:Essent ial hypertension Social History [...] ars (1 of 2 - PCV) 1986 Zoster Vaccines (1 of 2) 2017 Cholesterol Screening (Lipid Panel) 10/19/2022 Colorectal Cancer Screening: Colonoscopy 10/19/2022 HIV Screening 10/19/2022 Hepatitis C Screening 10/19/2022 Social Influencers of Health Screening 10/19/2022 COVID-19 Vaccine (1 - 2023-2 5 season) 2024 Depression Screening 11/16/2024 Influenza Vaccine (#1) 2025 HIB Vaccines Aged Out No longer [...] Documents on File Type Date Recorded Patient Solutions Delivery Consultant Expl anation Health Care Decision (hx) 12/24/2017 AD LIANG DIRECTIVE Health Care Decision (hx) 12/24/2017 AD LIANG DIRECTIVE Health Care Decision (hx) 12/24/2017 AD LIANG DIRECTIVE Health Care Decision (hx) 12/24/2017 AD LIANG DIRECTIVE Care Teams Market Analyst Relationship Specialty Start Date End Date Verenice Park MD [address] [place] [address] [address] [facility] [place] [address] PCP - General Internal Medicine 11/12/17
== END 2025-06-23 10:47 | disposition home or self-care (01) ==
LOC: HO.HGI 09:36
PROVIDERS: PCP Internal Medicine; Visit Provider Nurse Practitioner
DX: Z01.818 Encounter for other preprocedural examination (principal); Z12.11 Encounter for screening for malignant neoplasm of colon; F17.210 Nicotine dependence, cigarettes, uncomplicated; B19.10 Unspecified viral hepatitis B without hepatic coma; R76.8 Other specified abnormal immunological findings in serum
CPT/HCPCS: S0285

== ENCOUNTER 2025-06-26 09:57 | Outpatient (AMB) | payer OTHER, SELFPAY ==
--- OUTSIDE RECORDS SUMMARY | 2024-12-23 07:00 | XMS_ITS ---
Author Organization [facility] Address [address] [place] [address] Care Team Providers Care Change Number Operator Name Role Phone Verenice Park Primary Care Provider Nicholas Kee Unavailable [phone] Virginia Borges Unavailable [phone] Medications Medication SIG (Take, Route, Frequency, Duration) Notes Start Date End Date Status Ibuprofen 800 MG 1 tablet with food o r milk as needed Orally every 8 hrs; Duration: 7 days 11/26/2023 Active Lisinopril 40 MG 1 tablet Orally Once a day; Duration: 30 day(s) Active Simvastatin 40 MG 1 tablet in the even ing Orally Once a day; Duration: 30 day(s) Active Aspir-81 Not-Taking Percocet 5-325 MG 1 tablet as needed O rally every 4-6 hrs as needed for breakthrough pain; Duration: 3 days 11/26/2023 Active Latanoprost Active Tresiba Active metFORMIN HCl 500 MG 1 tablet with a bhaskar l Orally Once a day; Duration: 30 day(s) Active Gabapentin 300 MG 1 capsule Orally Onc e a day; Duration: 30 day(s) Active Encounters Encounter Location Date Provider Diagnosis [facility] [address] [place] [address] 12/23/2024 Virginia Borges Plan Of Treatment Next Appt Details Provider Name:Virginia knowles, 02/20/2026 10:00:00 AM, [address] [place], [address], Progress Notes * Sarthak NUNEZDOB: 7 (59 yo M)Acc No.[id number]:12/23/2024 Progress Note Patient: Sarthak FRAGA Provider: Naheed Borges DPM :1965 A ge:59 Y S ex:Male Date:12/23/2024 Address:[address] [place] [address], [id number] Pcp:Verenice Park Subjective: * Chief Complaints: * * Medical History: A nxiety, Back,Hip,and Knee pain, Diabetic, High blood pressure, Numbness, Poor circulation, Chicken pox, Joint implants/screws, Glaucoma. * Medications: T aking Simvastatin 40 MG Tablet 1 tablet in the evening Orally Once a day , Taking Lisinopril 40 MG Tablet 1 tablet Orally Once a day , Taking Gabapentin 300 MG Capsule 1 capsule Orally Once a day , Taking Tresiba , Taking metFORMIN HCl 500 MG Tablet 1 tablet with a meal Orally Once a day , Taking Latanoprost , Taking Ibuprofen 800 MG Tablet 1 tablet with food or milk as needed Orally every 8 hrs , Taking Percocet 5-325 MG Tablet 1 tablet as needed Orally every 4-6 hrs as needed for breakthrough pain , Not-Taking/PRN Aspir-81 Objective: * Vitals: Assessment: Plan: * Treatment: * Images: * The named appointment provid er may or may not be the originator of this progress note, and it is not deemed complete until electronically signed by the appointment provider. Sign off status: Pending * Provider: Naheed Borges DPM Date: 12/23/2024 Generated for Nura fisher/Ella/Palmiraitting on: 0 06/26/2025 10:31 AM EDT
--- NOTE | 2025-06-26 10:03 | A.OFFVIS_ITS ---
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: No Allergies amoxicillin (From Augmentin) Adverse Reaction (Intermediate, Verified 06/26/25 10:06) Rash clavulanic acid (From Augmentin) Adverse Reaction (Intermediate, Verified 06/26/25 10:06) Rash dulaglutide (From Trulicity) Adverse Reaction (Intermediate, Verified 06/26/25 10:06) Diarrhea Medication List - Last Reconciled 06/26/25 by Eileen Dang LPN aspirin 81 mg PO DAILY bisacodyl (Dulcolax (bisacodyl)) 10 mg (2 x 5 mg) PO BEDTIME 2 days blood-glucose sensor (FreeStyle Roberto 3 Sensor device) DIRECTED gabapentin 300 mg PO TID 90 days hydrochlorothiazide 25 mg PO QAM ibuprofen 800 mg PO Q8H insulin degludec (Tresiba FlexTouch U-100 insulin) 40 units (0.4 mL) subcut DAILY latanoprost 0.005% 1 drp ophthalmic (eye) BEDTIME lisinopril 30 mg PO DAILY 90 days metformin 1,000 mg (2 x 500 mg) PO BID peg 3350-electrolytes 236-22.74-6.74 -5.86 gram (Golytely) 240 mL PO Q10M 1 day pen needle, diabetic (Comfort EZ Pen [place]) As directed pen needle, diabetic (BD Rowena 2nd Gen Pen Needle) As directed once a day simvastatin 40 mg PO QPM 90 days HPI HPI FOLLOW UP AFTER PT: Details: History of Present Illness The patient is a 59-year-old male presenting with lower back pain and radicular pain on the right side. The lower back pain has been persistent, and physical therapy was attempted but resulted in increased pain, leading to discontinuation after two sessions. The pain is described as severe, affecting the lower back and radiating into the right side, making walking nearly impossible. 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 He has not undergone any lower back surgery previously. Pain Description - Onset: Persistent - Quality: Severe, radiating into the right side - Location: Lower back, radiating into the right side - Exacerbating factors: Physical therapy increased pain - Impact: Walking is nearly impossible Physical Exam - Musculoskeletal: Pain elicited on right side with TRANG, SIJ compression & thrust - Appears afebrile. - Alert and oriented. - Mood and affect appropriate. - Follows and participates in conversation appropriately. - Respiratory effort is unlabored. - Able to transition from sit to stand unassisted. Pain Management - Affect: Pain significantly impacts mobility and daily activities - Analgesia: No current effective pain relief from physical therapy - Activities of Daily Living: Walking is nearly impossible due to pain [facility] Medical History (Updated 06/23/25 @ 10:46 by ASHLEY Tapia) Type 2 diabetes mellitus with hyperglycemia (~1999) Colon cancer screening Nicotine dependence, cigarettes, uncomplicated Generalized anxiety disorder Glaucoma Thoracic radiculopathy due to degenerative joint disease of spine Anxiety Hepatitis C antibody positive in blood Hepatitis B Hypercholesterolemia Hypertension Surgical History History of cervical spinal surgery History of fusion of cervical spine Family History Father Hypertension Mother Hypertension Maternal Uncle Pancreatic cancer Sister Substance abuse Brother Substance abuse Bladder cancer Social History Household Members: Spouse Household Members Other:: Housing: House Alcohol intake: never Patient Tobacco Use Status: Current everyday Tobacco user Tobacco use type: Cigarette Cigarette Packs Per Day: 1 Years Smoked: (onset 12yo, 1ppd x 45yrs, 40+PYH) e-Cigarette/Vaping Use: Never Used Second Hand Smoke Exposure: No service: No Current occupational status: unemployed Cognitive needs: No Hearing needs: No Vision needs: Yes Physical Exam Vital Signs: Last Vital Signs Pulse 86 06/26/25 10:04 Resp 16 06/26/25 10:04 BP 172/75 H 06/26/25 10:04 Pulse Ox 97 06/26/25 10:04 Oxygen Delivery Method Room Air 06/26/25 10:04 BMI result Body Mass Index 25.2 Assessment & Plan Assessment & Plan (1) Lumbar radicular pain: Code(s): M54.16 - Radiculopathy, lumbar region Category: Medical Plan Plan - Order MRI of the lumbar spine to investigate the source of pain. - Consider diagnostic sacroiliac joint injection to determine pain origin. - Follow up after MRI to discuss results and further management. Patient was informed and verbally consented to the use of an ambient scribe for clinic note documentation during this visit. Discussion Notes I discussed with the patient the possibility of conducting an MRI to investigate the source of his lower back pain and radicular symptoms. We also considered a diagnostic sacroiliac joint injection to determine if the pain originates from the SI joint. I explained that the MRI might not show SI joint issues, and the injection could provide temporary relief if the SI joint is involved. The patient will be contacted by the MRI department to schedule the imaging, and we will follow up to discuss the results and further management options. Patient Instructions - Await a call from the MRI department to schedule your imaging appointment. - Follow up with the clinic after the MRI to discuss results and next steps. Orders: Orders MR lumbar spine wo con 06/26/25 M54.16 - Radiculopathy, lumbar region Coding Level of Care Code Est Pt Level 3 (96436) Diagnoses Lumbar radicular pain M54.16
[2025-06-26 10:04] VITALS: BP 172/75; PULSE 86; RESP 16; O2SAT 97; BMI 25.2
--- OUTSIDE RECORDS SUMMARY | 2025-06-26 10:31 | XMS_ITS | Clinical Summary ---
Author Organization [facility] Address [address] [place] [address] Care Team Providers Care Chairman & Co Founder Name Role Phone Verenice Park MD Primary Care Provider [phone] Surgical History Surgery Date Site/Laterality Comments NECK SURGERY 03/31/2019 PROCEDURE: HISTORICAL NECK SURGERY; COMMENT: C5-6 C6-7 acdf NECK SURGERY 12/2017 PROCEDURE: HISTORICAL NECK SURGERY; COMMENT: C5-6 C6-7 right foraminotomy Medical History Medical History Date Comments Diabetes mellitus type 2, co ntrolled, with complications (CMS/HCC V24, CMS/HCC V28) DX:Diabetes mellitus type 2, controlled, with complications ([facility]) Essential hypertension DX:Essent ial hypertension Social History [...] Documents on File Type Date Recorded Patient Medical Technologist Prn Expl anation Health Care Decision (hx) 12/24/2017 AD LIANG DIRECTIVE Health Care Decision (hx) 12/24/2017 AD LIANG DIRECTIVE Health Care Decision (hx) 12/24/2017 AD LIANG DIRECTIVE Health Care Decision (hx) 12/24/2017 AD LIANG DIRECTIVE Care Teams Chairman & Co Founder Relationship Specialty Start Date End Date Verenice Park MD [address] [place] [address] [address] [facility] [place] [address] PCP - General Internal Medicine 11/12/17
== END 2025-06-26 10:48 | disposition home or self-care (01) ==
LOC: HO.PMC 09:58
PROVIDERS: PCP Internal Medicine; Visit Provider Internal Medicine
DX: M54.16 Radiculopathy, lumbar region (principal)
CPT/HCPCS: 99213

== ENCOUNTER 2025-08-11 09:04 | Outpatient (REF) | payer OTHER, SELFPAY ==
--- OUTSIDE RECORDS SUMMARY | 2024-12-23 07:00 | XMS_ITS ---
Author Organization [facility] Address [address] [place] [address] Care Team Providers Care Inspector Type Name Role Phone Verenice Park Primary Care Provider Nicholas Kee Unavailable [phone] Virginia Borges Unavailable [phone] Medications Medication SIG (Take, Route, Frequency, Duration) [...] Active Encounters Encounter Location Date Provider Diagnosis [facility] [address] [place] [address] 12/23/2024 Virginia Borges Plan Of Treatment Next Appt Details Provider Name:Virginia knowles, 02/20/2026 10:00:00 AM, [address] [place], [address], Progress Notes * Sarthak NUNEZDOB: 7 (59 yo M)Acc No.[id number]:12/23/2024 Progress Note Patient: Sarthak FRAGA Provider: Naheed Borges DPM :1965 A ge:59 Y S ex:Male Date:12/23/2024 Address:[address] [place] [address], [id number] Pcp:Verenice Park Subjective: * Chief Complaints: * [...] 12/23/2024 Generated for Nura fisher/Ella/Palmiraitting on: 0 08/11/2025 09:48 AM EDT
--- NOTE | ~2025-08-11 | MR_ITS ---
EXAMINATION: MR LUMBAR SPINE WITHOUT CONTRAST CLINICAL INFORMATION: Radiculopathy, lumbar region. M 54.16 COMPARISON: None available. TECHNIQUE: MRI of the lumbar spine was obtained using routine sequences without contrast. FINDINGS: Last rib-bearing vertebra labeled T12. There is bone marrow STIR signal in the right posterior elements L5. Multilevel marginal osteophyte formation decreased intervertebral disc height and signal throughout the axial skeleton. There is a 15 x 7 x 7 mm ovoid shaped mixed predominantly hyperintense T2 STIR signal abnormality in the ventral aspect of the right L5-S1 facet joint resulting in right neuroforamina and stenosis and right lateral central thecal sac compression deformity abutting and likely encroaching right S1 and to a lesser extent right S2 nerve roots. There is a 2 mm retrolisthesis at L3-4. There is a 1 mm retrolisthesis at L4-5. Conus medullaris ends at pedicle of L1 with normal signal. Modic type II endplate changes at L1-2. T12-L1: No disc herniation. No neuroforamina stenosis. L1-2: Broad-based disc bulging. Facet joint hypertrophy. No central spinal canal or neuroforamina stenosis. L2-3: Broad-based disc bulging. Facet joint hypertrophy. Mild reduced AP diameter of the thecal sac and neuroforamina. L3-4: Broad-based disc bulging. Facet joint and ligamentum flavum hypertrophy. Reduced AP diameter of the thecal sac and neuroforamina slightly pronounced on the left side. L4-5: Broad-based disc bulging. Facet joint and ligamentum flavum hypertrophy. Reduced AP diameter of the thecal sac. Bilateral neuroforamina stenosis encroaching the L4 exiting roots, right greater than the left side L5-S1: Broad-based disc bulging. Facet joint hypertrophy. Right facet joint effusion. There is a 15 x 7 x 7 mm ovoid shaped mixed fluid signal characteristic lesion extending from the medial aspect of the right facet joint into the right lateral central spinal canal/epidural compartment causing extrinsic compression upon the thecal sac compressing the right S1 nerve root on its lateral recess and likely encroaching the right S2. Bilateral neuroforamina stenosis encroaching the L5 exiting roots. No prevertebral compartment hematoma or masses. MR/MR lumbar spine wo con IMPRESSION: 15 x 7 x 7 mm synovial cyst, medial aspect right L5-S1 facet compressing right S1 and encroaching right S2 nerve roots. Spondylosis L4-5 and L5-S1 encroaching the L4 and L5 exiting nerve roots. Electronically signed by: Robin Wilkins MD 08/11/2025 10:48 AM EDT
--- NOTE | ~2025-08-11 | XR_ITS ---
EXAMINATION: XR EYE FOREIGN BODY HISTORY: PRE MRI ORBIT TO R/O FOREIGN BODY. COMPARISON: There are no prior studies for comparison. TECHNIQUE/FINDINGS: Three views of the orbits are submitted. No radiopaque foreign body is identified. The visualized paranasal sinuses are clear. XR/XR Orbits For Foreign Body IMPRESSION: No radiopaque foreign body is identified. Electronically signed by: Giacomo Vazquez MD 08/11/2025 09:28 AM EDT
--- OUTSIDE RECORDS SUMMARY | 2025-08-11 09:48 | XMS_ITS | Patient Health Record ---
Author Organization [facility] [place] [place] Address [address] [place] [address] Care Team Providers Care Abrasives Sales Representative Name Role Phone Xavier Staceyfelipa Primary Care Provider Nicholas Kee Unavailable [phone] Virginia Borges Unavailable [phone] Allergies Allergen (clinical drug ingredient) Drug/Non Drug [...] a day; Duration: 30 day(s) Active Gabapentin 400 MG 1 capsule Orally 3 t imes a day; Duration: 30 days Active Simvastatin 40 MG 1 tablet in the even ing Orally Once a day; Duration: 30 day(s) Active Aspir-81 Not-Taking Ibuprofen 800 MG 1 tablet with food o r milk as needed Orally every 8 hrs; Duration: 7 days 11/26/2023 Active Percocet 5-325 MG 1 tablet as needed O rally every 4-6 hrs as needed for breakthrough pain; Duration: 3 days 11/26/2023 Active metFORMIN HCl 500 MG 1 tablet with a bhaskar l Orally Once a day; Duration: 30 day(s) Active Latanoprost Active Tresiba Active [...] Problem Acquired hammer toe of left foot (8330019242820733 ) Other hammer toe(s) (acquired), left foot (M20.42) Active confirmed Problem Polyneuropathy due to type 2 diabetes mellitus (835095843) Type 2 diabetes mellitus with diabetic polyneuropathy (E11.42) Active confirmed Problem Acquired hammer toe of right foot ([id number] ) Other hammer toe(s) (acquired), right foot (M20.41) Active confirmed Vital Signs Blood pressure diastolic 77 mm Hg 03/07/2025 Height 5ft8in in 03/07/2025 Blood pressure systolic 121 mm Hg 03/07/2025 Weight 186 lbs 03/07/2025 BMI 28.28 kg/m2 03/07/2025 Encounters Encounter Location Date Provider Diagnosis [facility] [address] [address] 03/07/2025 Virginia Borges Type 2 diabetes mellitus with diabetic polyneuropathy E11.42 ; Other hammer toe(s) (acquired), right foot M20.41 and Other hammer toe(s) (acquired), left foot M20.[address] [facility] [address] 12/22/2024 Nicholas Reilly Assessments Encounter Date Diagnosis [...] X ray : Foot, right 3V 12/01/2023 [id number] SK[facility] LESIONS, 2 TO 4 05/22/20 23 Next Appt Details Provider Name:Virginia knowles, 02/20/2026 10:00:00 AM, [address] [place], [address], Insurance Providers Payer Name Payer Address Payer Phone Subscriber Number Group Number Insured Name Patient Relationship to Insured Coverage Start Date Coverage End Date [facility] [address] [address] [place] [address] [id number] Kristi Nunez Spouse - patient is the spouse of the insured Medical (General) History Medical History History ICD Code Anxiety Back,Hip,and Knee pain Diabetic High blood pressure Numbness Poor circulation Chicken pox Joint implants/screws Glaucoma Surgical History Surgery Date(Month/Year) spinal fusion titanium plates HT R 4,5 DIAB P/B 11/25/23 Hospitalization History Reason Date(Month/Year) [facility]- back pains, stomach pains
--- OUTSIDE RECORDS SUMMARY | 2025-08-11 09:48 | XMS_ITS | Clinical Summary ---
Author Organization [facility] Address [address] [place] [address] Care Team Providers Care Anatomic Pathologist Name Role Phone Verenice Park MD Primary Care Provider [phone] Surgical History Surgery Date Site/Laterality Comments NECK SURGERY 03/31/2019 PROCEDURE: HISTORICAL NECK SURGERY; COMMENT: C5-6 C6-7 acdf NECK SURGERY 12/2017 PROCEDURE: HISTORICAL NECK SURGERY; COMMENT: C5-6 C6-7 right foraminotomy Medical History Medical History Date Comments Diabetes mellitus type 2, co ntrolled, with complications (CMS/HCC V24, CMS/HCC V28) DX:Diabetes mellitus type 2, controlled, with complications ([facility]) Essential hypertension DX:Essent ial hypertension Social History [...] 10/19/2022 Social Influencers of Health Screening 10/19/2022 Depression Screening 11/16/2024 COVID-19 Vaccine (1 - 2023-2 5 season) 2025 Influenza Vaccine (#1) 2025 HIB Vaccines Aged [...] Documents on File Type Date Recorded Patient Application Security Engineer Expl anation Health Care Decision (hx) 12/24/2017 AD LIANG DIRECTIVE Health Care Decision (hx) 12/24/2017 AD LIANG DIRECTIVE Health Care Decision (hx) 12/24/2017 AD LIANG DIRECTIVE Health Care Decision (hx) 12/24/2017 AD LIANG DIRECTIVE Care Teams Anatomic Pathologist Relationship Specialty Start Date End Date Verenice Park MD [address] [place] [address] [address] [facility] [place] [address] PCP - General Internal Medicine 11/12/17
== END 2025-08-11 09:05 | disposition home or self-care (01) ==
LOC: HO.MRI 09:04
PROVIDERS: PCP Internal Medicine; Visit Provider Internal Medicine
DX: M54.16 Radiculopathy, lumbar region (principal)
CPT/HCPCS: 70030; 72148

== ENCOUNTER → 2025-08-11 09:22 | Outpatient (BNV) | payer OTHER, SELFPAY | PROVIDERS: PCP Internal Medicine; Visit Provider Radiology Diagnostic Radiology | DX: M47.26 Other spondylosis with radiculopathy, lumbar region (principal); M71.38 Other bursal cyst, other site; Z13.5 Encounter for screening for eye and ear disorders | CPT/HCPCS: 70030; 72148 ==

== ENCOUNTER 2025-08-23 08:45 | Outpatient (AMB) | payer OTHER, SELFPAY ==
[2025-08-23 08:53] VITALS: BP 144/88; PULSE 81; TEMP 36.2; O2SAT 97; BMI 26.0
--- NOTE | 2025-08-23 08:53 | A.OFFPC_ITS ---
Vital Signs 08/23/25 08:53 Height 6 ft Weight 191 lb 8 oz BMI 26.0 BP 144/88 H Blood Pressure Location Lt brachial Position Sitting Pulse 81 Pulse Source Pulse Oximeter Temp 97.1 F Temp Source Temporal Artery Scan Pulse Oximetry (%) 97 Oxygen Delivery Method Room Air Intake Visit Reasons: DM Allergies amoxicillin (From Augmentin) Adverse Reaction (Intermediate, Verified 08/23/25 08:56) Rash clavulanic acid (From Augmentin) Adverse Reaction (Intermediate, Verified 08/23/25 08:56) Rash dulaglutide (From Trulicity) Adverse Reaction (Intermediate, Verified 08/23/25 08:56) Diarrhea Tobacco use date assessed: 08/23/25 Dental Screening Dental Screen Date: 08/23/25 Did you have a dental visit in the last 12 months?: Yes Did you have a dental problem in the last 6 months where you did not have access to dental care?: No Was dental information given to patient?: Patient has dentist [facility] Medical History Type 2 diabetes mellitus with hyperglycemia (~2000) Colon cancer screening Nicotine dependence, cigarettes, uncomplicated Generalized anxiety disorder Glaucoma Thoracic radiculopathy due to degenerative joint disease of spine Anxiety Hepatitis C antibody positive in blood Hepatitis B Hypercholesterolemia Hypertension Surgical History History of cervical spinal surgery History of fusion of cervical spine Family History Father Hypertension Mother Hypertension Maternal Uncle Pancreatic cancer Sister Substance abuse Brother Substance abuse Bladder cancer Social History Household Members: Spouse Household Members Other:: Housing: House Alcohol intake: never Patient Tobacco Use Status: Current everyday Tobacco user Tobacco use type: Cigarette Cigarette Packs Per Day: 1 Cigarettes Per Day: 20 Years Smoked: (onset 12yo, 1ppd x 45yrs, 40+PYH) e-Cigarette/Vaping Use: Never Used Second Hand Smoke Exposure: No service: No Current occupational status: unemployed Cognitive needs: No Hearing needs: No Vision needs: Yes Questionnaire PHQ-9 Over the last 2 weeks, how often have you been bothered by any of the following problems? 1. Little interest or pleasure in doing things: not at all 2. Feeling down, depressed, or hopeless: not at all 3. Trouble falling or staying asleep, or sleeping too much: not at all 4. Feeling tired or having little energy: not at all 5. Poor appetite or overeating: not at all 6. Feeling bad about yourself - or that you are a failure or have let yourself or your family down: not at all 7. Trouble concentrating on things, such as reading the newspaper or watching television: not at all 8. Moving or speaking so slowly that other people could have noticed. Or the opposite - being so fidgety or restless that you have been moving around a lot more than usual: not at all 9. Thoughts that you would be better off or of hurting yourself in some way: not at all Total score: 0 Source: Developed by Drs. Giacomo Lira, Kathleen Irizarry, Luis E Workman and colleagues, with an educational christin from [employer]. Thrive Questionnaire Date Thrive assessed: 05/02/25 I am a: Patient What is your living situation today?: I have a steady place to live Within the past 12 months, did the food you bought not last and you didn't have the money to get more?: I choose not to answer this question Within the past 12 months, did you worry whether your food would run out before you got money to buy more?: I choose not to answer this question Do you have trouble paying for medicines?: I choose not to answer this question Do you have trouble getting transportation to medical appointments?: I choose not to answer this question Do you have trouble paying your heating and electricity bill?: No Do you have trouble taking care of your child, family member or friend?: No Do you have trouble with day-to-day activities such as bathing, preparing meals, shopping, managing finances, etc.?: Yes Are you currently unemployed and looking for a job?: No Are you interested in more education?: No Please select the resources that you would like help with: None Currently or been in a relationship where the following occur: I choose not to answer THRIVE Score: 0 AUDIT C Alcohol Use Questionnaire (AUDIT-C) 1. How often do you have a drink containing alcohol?: Never 3. How often do you have six or more drinks on one occasion?: Never Total Score: 0 TARYN-7 AMB Questionnaire TARYN-7 Date TARYN - 7 assessed: 05/02/25 Feeling nervous, anxious, or on edge: 0 = Not at all Not being able to stop or control worryin = Not at all Worrying too much about different things: 0 = Not at all Trouble relaxin = Nearly every day Being so restless that it is hard to sit still: 3 = Nearly every day Becoming easily annoyed or irritable: 3 = Nearly every day Feeling afraid as if something awful might happen: 0 = Not at all Total TARYN-7 score (0-4 normal; 5-9 mild; 10-14 moderate; 15-21 severe): 9 Source: Developed by Drs. Giacomo Lira, Kathleen Irizarry, Luis E Workman and colleagues, with an educational christin from [employer]. Physical exam (Primary Care) Vital Signs: Last Vital Signs Temp 97.1 F 08/23/25 08:53 Pulse 81 08/23/25 08:53 BP 144/88 H 08/23/25 08:53 Pulse Ox 97 08/23/25 08:53 Oxygen Delivery Method Room Air 08/23/25 08:53 BMI result Body Mass Index 26.0 Tobacco/Smoking Status: Tobacco use Status Tobacco use date assessed 08/23/25 08/23/25 08:57 Patient Tobacco Use Status Current everyday Tobacco 08/23/25 08:55 Tobacco use type Cigarette 08/23/25 08:55 e-Cigarette/Vaping Use Never Used 08/23/25 08:55 PHQ-9: PHQ-9 Score PHQ-9: Total score 0 08/23/25 09:27 Thrive Assessment: Date of Thrive Assessment Date Thrive assessed 05/02/25 08/23/25 08:55 Currently or been in a relationship where the following occur: I choose not to answer Const General: alert; No acute distress Eyes Conjunctivae: conjunctivae normal Resp Auscultation: clear to auscultation bilaterally Cardio Rate: regular rate Rhythm: regular rhythm GI Inspection: Yes normal to inspection Extrem General: Yes normal to inspection and No edema Results AMB Hemoglobin A1c AMB Hemoglobin A1c 8.9 % Last Edit by Caro Alston CMA on 08/23/25 09:01 Results Reviewed Results Reviewed: Laboratory Last Values Hgb A1c (Clinic) 8.9 % (4.0-6.0) H 08/23/25 08:57 Coding Level of Care Code Est Pt Level 4 (77726) Complex EM visit Add On G2211 Diagnoses Type 2 diabetes mellitus with hyperglycemia, with long-term current use of insulin E11.65; Z79.4 Diabetes mellitus nursing home insulin use: with nursing home use Essential hypertension I10 Hypertension type: essential hypertension Hypercholesterolemia E78.00 Generalized anxiety disorder F41.1 Hepatitis B B19.10 Hepatitis C antibody positive in blood R76.8 Hepatic steatosis K76.0 Anemia D64.9 Lumbar radicular pain M54.16 Nicotine dependence, cigarettes, uncomplicated F17.210 Assessment & Plan Assessment & Plan (1) Type 2 diabetes mellitus with hyperglycemia: Onset Date: ~1999 Comment: [facility] eye exam Code(s): E11.65 - Type 2 diabetes mellitus with hyperglycemia Category: Medical Qualifiers: Diabetes mellitus terminal carman insulin use: with terminal carman use Qualified Code(s): E11.65 - Type 2 diabetes mellitus with hyperglycemia; Z79.4 - half-way (current) use of insulin Plan: Decrease the amount of carbohydrate intake, pasta, bread, rice and potatoes are all sugar and that is aside from all the sweet stuff, remember that fruits are good but they are Sweet also. Hemoglobin A1c goal of less than 6.5. Patient on Tresiba at 40 units once a day metformin a 1000 twice a day (2) Hypertension: Code(s): I10 - Essential (primary) hypertension Category: Medical Qualifiers: Hypertension type: essential hypertension Qualified Code(s): I10 - Essential (primary) hypertension Plan: Continue with blood pressure medication. Decrease salt intake and exercise on lisinopril 30 mg once a day hydrochlorothiazide 25 mg once a day (3) Hypercholesterolemia: Code(s): E78.00 - Pure hypercholesterolemia, unspecified Category: Medical Plan: Avoid fried foods, chicken skin, eggs, butter margarine, pastries and meat. Be it pork or beef they have a lot of cholesterol LDL goal of less than 100 and tri glyceride of less than 150 (4) Generalized anxiety disorder: Code(s): F41.1 - Generalized anxiety disorder Category: Medical Plan: Stable (5) Hepatitis B: Code(s): B19.10 - Unspecified viral hepatitis B without hepatic coma Category: Medical Plan: Antigen and viral load negative (6) Hepatitis C antibody positive in blood: Code(s): R76.8 - Other specified abnormal immunological findings in serum Category: Medical Plan: Antigen and viral load negative (7) Hepatic steatosis: Comment: (Mild hepatic steatosis 12/2021 abd [place]) December 2023 Code(s): K76.0 - Fatty (change of) liver, not elsewhere classified Category: Medical Plan: Low-fat diet and exercise (8) Anemia: Code(s): D64.9 - Anemia, unspecified Category: Medical Plan: Continue to monitor at work requested (9) Lumbar radicular pain: Code(s): M54.16 - Radiculopathy, lumbar region Category: Medical Plan: Patient is seeing pain management (10) Nicotine dependence, cigarettes, uncomplicated: Comment: (current smoker - onset 12yo, 1ppd x 45yrs, 40+PYH) Code(s): F17.210 - Nicotine dependence, cigarettes, uncomplicated Category: Medical Plan: Patient is strongly advised to stop smoking Plan History of Present Illness The patient is a 59-year-old male presenting for a follow-up visit. He has a history of diabetes mellitus, which is currently managed with Tresiba and metformin, although his hemoglobin A1c is elevated at 8.9%. The patient experiences gastrointestinal side effects from Trulicity and Jardiance, which were previously prescribed for diabetes management. The patient has a history of nephrolithiasis and degenerative anxiety disorder, which are part of his chronic conditions. He also has hepatic steatosis, hypertension, and hypercholesterolemia, with the latter being managed to maintain an LDL cholesterol level of 65 mg/dL. The patient is hepatitis C antibody positive and has hepatitis B, but both infections show no active antigen and a negative viral load. He has mild anemia and mild hyponatremia, as noted in recent blood work. The patient underwent an MRI of the lower back, which revealed a synovial cyst at L5-S1 compressing the right S1 and encroaching on the right S2 nerve roots, along with spondylosis at L4-L5 and L5-S1 encroaching on the L4-L5 exiting nerve roots. He is currently under pain management care and was advised to consider a left joint injection. Health Maintenance - Colon cancer screening with stool test last performed in November 2023 - Blood pressure management with lisinopril and hydrochlorothiazide - Cholesterol management with a goal LDL of less than 100 mg/dL - Smoking cessation strongly advised Social History - Smoker: Patient is currently smoking and has been strongly advised to quit. Review of Systems Physical Exam Results - Labs: Mild anemia with hemoglobin 13.4 g/dL and hematocrit 37.4% - Labs: Mild hyponatremia - Labs: Hemoglobin A1c at 8.9% - Labs: LDL cholesterol at 65 mg/dL - Imaging: MRI of the lower back showing synovial cyst at L5-S1 and spondylosis at L4-L5 and L5-S1 Plan Patient was informed and verbally consented to the use of an ambient scribe for clinic note documentation during this visit. 1. Diabetes Mellitus The patient's diabetes mellitus is currently managed with Tresiba and metformin, but his hemoglobin A1c is elevated at 8.9%. The goal is to achieve a hemoglobin A1c of less than 6.5%. 2. Hypertension Hypertension is managed with lisinopril 30 mg once a day and hydrochlorothiazide 25 mg once a day. 3. Hypercholesterolemia The patient's LDL cholesterol is currently at 65 mg/dL, with a management goal of maintaining LDL below 100 mg/dL. 4. Hepatitis B And C The patient has hepatitis B and C infections, both with no active antigen and negative viral load. 5. 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 6. Preventative Care Preventative care includes colon cancer screening with stool test last performed in November 2023. Discussion Notes Patient Instructions - Continue current diabetes medications and aim for a hemoglobin A1c of less than 6.5%. - Maintain blood pressure medications as prescribed. - Follow cholesterol management plan to keep LDL below 100 mg/dL. - Attend pain management appointments and consider recommended joint injection. - Quit smoking as strongly advised. Orders: Orders Comprehensive Met. Panel 1 Month E11.65 - Type 2 diabetes mellitus with hyperglycemia, Z79.4 - half-way (current) use of insulin Thyroid Stimulating Hormone 1 Month E11.65 - Type 2 diabetes mellitus with hyperglycemia, Z79.4 - half-way (current) use of insulin Lipid Panel 1 Month E11.65 - Type 2 diabetes mellitus with hyperglycemia, E78.00 - Pure hypercholesterolemia, unspecified, Z79.4 - ocean transportation intermediary (current) use of insulin Vitamin B12 and Folate 1 Month E11.65 - Type 2 diabetes mellitus with hype rglycemia, Z79.4 - half-way (current) use of insulin Prostate Specific Antigen Scr 1 Month E11.65 - Type 2 diabetes mellitus with hyperglycemia, Z79.4 - ocean transportation intermediary (current) use of insulin Magnesium 1 Month E11.65 - Type 2 diabetes mellitus with hyperglycemia, Z79.4 - half-way (current) use of insulin Creatinine Urine 1 Month E11.65 - Type 2 diabetes mellitus with hyperglycemia, Z79.4 - ocean transportation intermediary (current) use of insulin AMB Hemoglobin A1c Today Z13.9 - Encounter for screening, unspecified Complete Blood Count Auto Diff 1 Month E11.65 - Type 2 diabetes mellitus with hyperglycemia, Z79.4 - half-way (current) use of insulin Free T4 (Free Thyroxine) 1 Month E11.65 - Type 2 diabetes mellitus with hyperglycemia, Z79.4 - ocean transportation intermediary (current) use of insulin Hemoglobin A1c 1 Month E11.65 - Type 2 diabetes mellitus with hyperglycemia, Z79.4 - ocean transportation intermediary (current) use of insulin Microalbumin, Random (w Creat) 1 Month E11.65 - Type 2 diabetes mellitus with hyperglycemia, Z79.4 - ocean transportation intermediary (current) use of insulin Referrals Neurosurgery Referral M54.16 - Radiculopathy, lumbar region Medications: New tramadol 50 mg PO DAILY PRN 7 tabs 0RF pain M54.16 - Radiculopathy, lumbar region
== END 2025-08-23 09:43 | disposition home or self-care (01) ==
LOC: HO.HMCH 08:46
PROVIDERS: PCP Internal Medicine; Visit Provider Internal Medicine
DX: E11.65 Type 2 diabetes mellitus with hyperglycemia (principal); Z79.4 Long term (current) use of insulin; I10 Essential (primary) hypertension; E78.00 Pure hypercholesterolemia, unspecified; F41.1 Generalized anxiety disorder; B19.10 Unspecified viral hepatitis B without hepatic coma; R76.89 Other specified abnormal immunological findings in serum; K76.0 Fatty (change of) liver, not elsewhere classified; D64.9 Anemia, unspecified; M54.16 Radiculopathy, lumbar region; F17.210 Nicotine dependence, cigarettes, uncomplicated

== ENCOUNTER → 2025-08-23 08:45 | Outpatient (BNVA) | payer OTHER, SELFPAY | PROVIDERS: PCP Internal Medicine; Visit Provider Internal Medicine | DX: E11.65 Type 2 diabetes mellitus with hyperglycemia (principal); I10 Essential (primary) hypertension; E78.00 Pure hypercholesterolemia, unspecified; F41.1 Generalized anxiety disorder; B19.10 Unspecified viral hepatitis B without hepatic coma; R76.89 Other specified abnormal immunological findings in serum; K76.0 Fatty (change of) liver, not elsewhere classified; D64.9 Anemia, unspecified; M54.16 Radiculopathy, lumbar region; F17.210 Nicotine dependence, cigarettes, uncomplicated; Z79.4 Long term (current) use of insulin | CPT/HCPCS: 83036; 96127 ==